=== PATIENT | male | born 1935 | race Caucasian/White ===

== ENCOUNTER → 2016-10-30 | Outpatient (CLI) | payer BC ==
[~2016-10-30] MED LIST: ASPI81TA28 PO; ATOR-24 PO; HYG/25 PO; METO25TA3 PO
[2016-10-30 12:46] LABS: HEMATOCRIT 45.7 % (42-52); MEAN CELL VOLUME 99.1 fL (80-100); MEAN CORPUSCULAR HEMOGLOBIN 31.7 pg (25-34); MEAN CORPUSCULAR HGB CONC 31.9 g/dl (32-36); PLATELET COUNT 221 K/uL (130-400); RED BLOOD COUNT 4.61 M/uL (4.7-6.1); WHITE BLOOD COUNT 6.45 K/uL (4.8-10.8)
[2016-10-30 12:57] LABS: BLOOD UREA NITROGEN 29 mg/dl (7-18); BUN/CREATININE RATIO 19.3 (10-20); CARBON DIOXIDE 32 mmol/L (21-32); CHLORIDE 104 mmol/L (98-107); GLUCOSE 98 mg/dl (70-99); PHOSPHORUS 2.6 mg/dl (2.5-4.9); POTASSIUM 3.8 mmol/L (3.5-5.1); SODIUM 141 mmol/L (136-145)
[2016-10-30 13:03] LABS: URINE APPEARANCE CLEAR (CLEAR); URINE BILIRUBIN NEG (NEG); URINE COLOR YELLOW; URINE EPITHELIAL CELL AUTO 0-5 /lpf (0-5); URINE NITRITE NEG (NEG); URINE PH 5.5 (4.5-7.5); URINE SPECIFIC GRAVITY 1.016 (1.000-1.030); UROBILINOGEN NEG (NEG)
[2016-10-30 13:06] LABS: MANUAL MICROSCOPIC REQUIRED? NO; REVIEW REQ? NO
[2016-10-30 13:16] LABS: URINE PROTIEN/CREAT RATIO 0.1 (0-0.2); URINE TOTAL PROTEIN 12.4 mg/dl (0-11.9)
[2016-10-30 13:52] LABS: CALCIUM 9.1 mg/dl (8.5-10.1)
== END | disposition home or self-care (01) ==
LOC: C.LABPVFM 08:20
PROVIDERS: ATTEND Internal Medicine Nephrology
DX: I12.9 Hypertensive chronic kidney disease with stage 1 through stage 4 chronic kidney disease, or unspecified chronic kidney disease (principal); N18.3 Chronic kidney disease, stage 3 (moderate); R60.9 Edema, unspecified; E21.3 Hyperparathyroidism, unspecified; E55.9 Vitamin D deficiency, unspecified

== ENCOUNTER → 2016-11-07 | Outpatient (CLI) | payer BC | END | disposition home or self-care (01) | LOC: C.LABPVFM 15:25 | PROVIDERS: ATTEND Nurse Practitioner Family | DX: Z01.89 Encounter for other specified special examinations (principal); L02.811 Cutaneous abscess of head [any part, except face] ==

== ENCOUNTER → 2017-04-03 | Outpatient (CLI) | payer BC ==
[2017-04-03 13:58] LABS: CHOLESTEROL/HDL RATIO 2.3
== END | disposition home or self-care (01) ==
LOC: C.LABPVFM 08:00
PROVIDERS: ATTEND Internal Medicine Cardiovascular Disease
DX: I10 Essential (primary) hypertension (principal); E78.5 Hyperlipidemia, unspecified; R60.9 Edema, unspecified; I25.10 Atherosclerotic heart disease of native coronary artery without angina pectoris

== ENCOUNTER → 2017-05-30 | Outpatient (CLI) | payer BC ==
[2017-05-30 13:09] LABS: BLOOD UREA NITROGEN 36 mg/dl (7-18); BUN/CREATININE RATIO 22.8 (10-20); CALCIUM 9.2 mg/dl (8.5-10.1); CARBON DIOXIDE 31 mmol/L (21-32); CHLORIDE 100 mmol/L (98-107); CREATININE 1.56 mg/dl (0.60-1.40); GLUCOSE 110 mg/dl (70-99); PHOSPHORUS 2.7 mg/dl (2.5-4.9); POTASSIUM 3.7 mmol/L (3.5-5.1); SODIUM 137 mmol/L (136-145)
[2017-05-30 13:10] LABS: HEMATOCRIT 44.8 % (42-52); MEAN CORPUSCULAR HEMOGLOBIN 33.7 pg (25-34); MEAN CORPUSCULAR HGB CONC 34.4 g/dl (32-36); MEAN PLATELET VOLUME 11.6 fL (7.4-10.4); PLATELET COUNT 211 K/uL (130-400); RED BLOOD COUNT 4.57 M/uL (4.7-6.1); WHITE BLOOD COUNT 6.98 K/uL (4.8-10.8)
[2017-05-30 13:13] LABS: URINE APPEARANCE CLEAR (CLEAR); URINE BILIRUBIN NEG (NEG); URINE COLOR YELLOW; URINE EPITHELIAL CELL AUTO 0-5 /lpf (0-5); URINE NITRITE NEG (NEG); UROBILINOGEN NEG (NEG)
[2017-05-30 13:26] LABS: MANUAL MICROSCOPIC REQUIRED? NO; REVIEW REQ? NO
[2017-05-30 13:46] LABS: CREATININE, URINE 39.5 mg/dl; URINE TOTAL PROTEIN < 5.0 mg/dl (0-11.9)
== END | disposition home or self-care (01) ==
LOC: C.LABPVFM 08:14
PROVIDERS: ATTEND Internal Medicine Nephrology
DX: I12.9 Hypertensive chronic kidney disease with stage 1 through stage 4 chronic kidney disease, or unspecified chronic kidney disease (principal); N18.3 Chronic kidney disease, stage 3 (moderate); R60.9 Edema, unspecified; E21.3 Hyperparathyroidism, unspecified; E55.9 Vitamin D deficiency, unspecified

== ENCOUNTER → 2017-10-22 | Outpatient (CLI) | payer BC ==
[~2017-10-22] MED LIST changes: -METO25TA3 PO; +METO25TA4 PO
[2017-10-22 12:59] LABS: HEMATOCRIT 45.6 % (42-52); HEMOGLOBIN 15.3 g/dL (14.0-18.0); MEAN CELL VOLUME 98.1 fL (80-100); MEAN CORPUSCULAR HEMOGLOBIN 32.9 pg (25-34); MEAN CORPUSCULAR HGB CONC 33.6 g/dl (32-36); PLATELET COUNT 201 K/uL (130-400); RED CELL DISTRIBUTION WIDTH CV 13.7 % (11.5-14.5); RED CELL DISTRIBUTION WIDTH SD 48.5 fL (36.4-46.3); WHITE BLOOD COUNT 5.32 K/uL (4.8-10.8)
[2017-10-22 13:49] LABS: ALBUMIN 3.8 gm/dl (3.4-5.0); ALKALINE PHOSPHATASE 125 U/L (45-117); ALT/SGPT 39 U/L (12-78); AST/SGOT 29 U/L (15-37); BLOOD UREA NITROGEN 25 mg/dl (7-18); CARBON DIOXIDE 31 mmol/L (21-32); CHOLESTEROL 121 mg/dl (0-200); CREATININE 1.56 mg/dl (0.60-1.40); GLUCOSE 109 mg/dl (70-99); LDL CHOLESTEROL CALCULATED 45 mg/dl; POTASSIUM 3.4 mmol/L (3.5-5.1); SODIUM 140 mmol/L (136-145); TOTAL PROTEIN 7.2 gm/dl (6.4-8.2)
== END | disposition home or self-care (01) ==
LOC: C.LABPVFM 07:23
PROVIDERS: ATTEND Family Medicine
DX: R42 Dizziness and giddiness (principal); I12.9 Hypertensive chronic kidney disease with stage 1 through stage 4 chronic kidney disease, or unspecified chronic kidney disease; N18.3 Chronic kidney disease, stage 3 (moderate); E21.3 Hyperparathyroidism, unspecified; E55.9 Vitamin D deficiency, unspecified

== ENCOUNTER → 2017-10-30 | Outpatient (CLI) | payer BC ==
--- NOTE | 2017-10-30 12:23 | DIAGNOSTIC IMAGING REPORT ---
CAROTID DOPPLER NECK ART HISTORY: Mental status change R42 COMPARISON: None. TECHNIQUE: Real-time, grayscale, and color Doppler sonography of the carotid arteries was performed. Imaging reviewed in the transverse and longitudinal planes. All measurements were calculated based on NASCET criteria. FINDINGS: Antegrade flow is seen in the bilateral vertebral arteries. The brachial pressures are hemodynamically similar. Moderate plaque formation bilaterally The peak systolic velocity within the right ICA is 85. The right systolic ratio is 0.8. The peak systolic velocity within the left ICA is 74. The left systolic ratio is 0.6. IMPRESSION: No hemodynamically significant stenosis seen within the carotid arteries. Moderate plaque formation bilaterally The above report was generated using voice recognition software. It may contain grammatical, syntax or spelling errors. Electronically signed by: Tito Fraga M.D. 10/30/2017 12:21 PM Dictated Date/Time: 10/30/2017 12:21 PM
== END | disposition home or self-care (01) ==
LOC: C.ULTR 11:20
PROVIDERS: ATTEND Family Medicine
DX: R42 Dizziness and giddiness (principal); I65.23 Occlusion and stenosis of bilateral carotid arteries

== ENCOUNTER 2018-12-14 23:13 | Inpatient (IN) ==
[2018-12-15 00:13] LABS: Basophils # (auto) 0.02 K/uL (0-0.2); Basophils % (auto) 0.1 %; Eosinophils # (auto) 0.04 K/uL (0-0.5); Eosinophils % (auto) 0.3 %; Hematocrit (blood only) 37.5 % (42-52); Hemoglobin 12.8 g/dL (14.0-18.0); Immature Granulocytes # (auto) 0.05 K/uL (0.00-0.02); Immature Granulocytes % (auto) 0.3 %; Lymphocytes # (auto) 0.91 K/uL (1.2-3.4); Lymphocytes % (auto) 6.2 %; Mean Corpuscular Hgb Conc 34.1 g/dL (32-36); Mean Corpuscular Volume 96.9 fL (80-100); Mean Platelet Volume 10.9 fL (7.4-10.4); Monocytes # (auto) 1.03 K/uL (0.11-0.59); Neutrophils # (auto) 12.61 K/uL (1.4-6.5); Neutrophils % (auto) 86.1 %; Platelet Count 149 K/uL (130-400); RDW Coefficient of Variation 13.6 % (11.5-14.5); RDW Standard Deviation 48.2 fL (36.4-46.3); Red Blood Count 3.87 M/uL (4.7-6.1); White Blood Count 14.66 K/uL (4.8-10.8)
[2018-12-15 00:25] LABS: Partial Thromboplastin Ratio 1.1; Prothrombin Time 10.1 Seconds (9.0-12.0)
[2018-12-15 00:30] LABS: Blood Urea Nitrogen 34 mg/dl (7-18); Calcium 8.9 mg/dl (8.5-10.1); Carbon Dioxide 29 mmol/L (21-32); Chloride 101 mmol/L (98-107); Creatinine Clr Calc Pharmacy 41.1 ml/min; Est GFR (African American) 44.8; Est GFR (Non-African American) 38.7; Glucose 99 mg/dl (70-99); Magnesium 1.9 mg/dl (1.8-2.4); Potassium 3.2 mmol/L (3.5-5.1); Sodium 137 mmol/L (136-145)
[2018-12-15 00:31] LABS: Alanine Aminotransferase 30 U/L (12-78); Albumin Level 2.8 gm/dl (3.4-5.0); Aspartate Aminotransferase 22 U/L (15-37); Bilirubin Direct 0.4 mg/dl (0-0.2)
[2018-12-15 00:38] LABS: Alkaline Phosphatase 100 U/L (45-117); Bilirubin,Total 2.5 mg/dl (0.2-1); Creatine Kinase 59 U/L (39-308); Total Protein 6.6 gm/dl (6.4-8.2); Troponin I < 0.015 ng/ml (0-0.045)
[2018-12-15] MEDS ORDERED: PIPERACILL/TAZOBAC CONSULT ACTIVE PRN ×2 (00:40→07:47)
[2018-12-15] MEDS ORDERED: VANCOMYCIN CONSULT ACTIVE PRN ×2 (00:40→07:47)
[2018-12-15] MEDS ORDERED: VANCOMYCIN HCL 2,000 MG in SODIUM CHLORIDE 0.9% 500 ML IV ONE (00:40)
[2018-12-15] MEDS ORDERED: PIPERACILLIN/TAZOBACTAM 4.5 GM/120 ML BAG IV ONE (00:40)
[2018-12-15 01:37] LABS: Appearance Urine Clear (Clear); Bacteria Urine Automated Negative (Negative); Bilirubin Urine Negative (Negative); Blood Urine 1+ (Negative); Color Urine Yellow; Glucose Urine UA Negative (Negative); Ketones Urine Trace (Negative); Leukocyte Esterase Urine Negative (Negative); Nitrite Urine Negative (Negative); Protein Urine 1+ (Negative); Specific Gravity Urine 1.018 (1.000-1.030); Urobilinogen Urine Negative (Negative)
--- NOTE | 2018-12-15 04:52 | Emergency Department Note ---
Entered by Philip Mercer acting as a scribe for Arnulfo Bhagat MD ED Provider Note Name: Jose Lopez Age:83, male Arrives Via: Walk in Informant: Patient CC: Right leg swelling HPI: The patient is an 83 year old male who presents to the emergency department with complaints of constant right leg swelling beginning this morning. The patient states that he recently drove back from [place]. He notes that he noticed some right leg swelling this morning. He reports that his leg feels like it is asleep and he states that his leg is red. He also complains of a subjective fever. He notes that he was in the emergency department in [place] last week for severe abdominal pain that has since resolved. He denies any SOB, CP, and vomiting. He reports that he has a previous history of a heart attack, DVT, and PE, and he states that he takes a baby aspirin. He notes that he was previously on Coumadin, but he reports that he is not anymore. ROS: See above HPI for pertinent positives & negatives. A total of 10 systems reviewed and were otherwise negative. Past Medical History: MO, heart disease, kidney stones, PE, DVT Past Surgical History: None Family History: No significant family history Social History: , lives with family, never smoker Home Medications: Aspirin, atorvastatin, chlorthalidone, metoprolol succinate Allergies: None Physical: Vitals: BP 190/47 H, Pulse 69, Resp 20, Temp 97.9 F, O2 Sat Exam: GENERAL: Patient is well appearing and in mild distress. EYES: No scleral icterus, unremarkable pupils. ENT: Mucous membranes moist, no nasal congestion. NECK: No masses appreciated, no meningismus, trachea is midline. RESPIRATORY: No dyspnea. Clear to auscultation and equal bilaterally. No wheeze, no rhonchi. CARDIOVASCULAR: Regular rate and rhythm. No murmurs, rubs, gallops appreciated. GASTROINTESTINAL: Abdomen soft, non-tender, no peritonitis. Bowel sounds positive. No masses appreciated. BACK: No midline tenderness, no CVA tenderness EXTREMITIES: Normal motion all extremities, no cyanosis. Diffusely swollen erythematous warm right leg with dark blistering in small areas of foot, intact pulses. NEUROLOGIC: Alert and oriented, no acute motor or sensory deficits, no focal weakness, cranial nerves grossly intact. SKIN: No rash, no jaundice, no diaphoresis. ED Course: Prior Medical Record, Triage/Nursing Notes, Medications, Allergies reviewed by Me [id number]: The patient was evaluated in room C4. A complete history and physical exam was performed. 0142: I reevaluated and updated the patient. He is feeling well. He states that as long as he is not moving his leg, he does not have any discomfort. He is agreeable to inpatient treatment. I discussed the findings and the treatment plan with the patient. He expresses agreement and understanding. I discussed the patient's case with Dr. Akhtar - ANASTACIA Guaman. The patient will be evaluated for further management and treatment. Vital Signs: reviewed and remarkable for HTN, improving during stay Labs: Reviewed and remarkable for elevated wbc/crp Interventions: Saline Lock, Zosyn 4.5gm IV, Vanco 2g IV Imaging: US VENOUS RIGHT LOWER EXTREMITY: No evidence of deep venous thrombosis. Subcutaneous edema at right popliteal fossa and calf. Prominent lymph nodes at right groin, measuring up to 3.0 x 1.3 x 0.8cm. Radiologist: Arnulfo Davis MD Consults: 0142: I reviewed the patient's case with ANASTACIA Welsh. He will evaluate the patient for further management. Blood pressure: Normal. No Referral necessary Disposition: Hospitalization Differentials: Differential: DVT, CHF, Arterial Occlusion, Infectious, Joint Effusion, Trauma, Lymphedema, Idiopathic, Trauma, amongst other pathologies entertained. Medical Decision Making: Pleasant 83 yr old male who was clearly brush at recently son's house in [place], where he notes he had multiple bug bites to legs. Erythema entire right leg with swelling. Did travel quite far in car thus US done without evidence dvt. WBC and CRP elevation though lactate OK, no fever, and vitals stable. Not septic. Cellulitis is entire leg with some blistering without evidence of compartment syndrome nor current surgical indication. Broad spect abx ordered. Patient comfortable without need for pain meds. Given extensive cellulitis clearly needs to come in for further management. Impression: Right leg cellulitis Arnulfo Bhagat MD The scribe's documentation has been prepared under my direction and personally reviewed by me in its entirety. I confirm that the note above accurately reflects all work, treatment, procedures, and medical decision making performed by me. Impression & Plan Cellulitis of leg, right Past Med/Surg History Medical History History of MO (myocardial infarction) (Resolved) Fracture, humerus (Acute) Contusion of multiple sites (Acute) Fall (Acute) Fracture, humerus (Acute) Heart disease (Chronic) Kidney stones (Resolved) Hypoxia (Acute) Pleuritic chest pain (Acute) Pulmonary embolism (Acute 02/19/14) Right knee DJD (Acute) Surgical History No significant past surgical history Social History Preferred Language: Lithuanian marital status: Feels Safe at Home: Yes Smoking Status: Never smoker Results & Data Vital Signs Vital Signs - 24 hr 12/14/18 23:17 12/15/18 01:20 12/15/18 03:23 Temperature 36.6 C Temperature Source Oral Sepsis Recent Fever Within 48 Hours No Sepsis Action Taken by Nursing No Action Required Pulse Rate 69 Pulse Rate [Right Finger] 94 H 65 Pulse Rhythm Regular Pulse Strength Normal Respiratory Rate 20 18 18 Respiratory Effort / Characteristics Non-Labored Spontaneous Non-Labored Respiratory Depth Normal Normal Respiratory Pattern Regular Blood Pressure 190/47 H Blood Pressure [Right Arm] 121/54 L 131/61 Blood Pressure Mean 94 Blood Pressure Mean [Right Arm] 76 84 Blood Pressure Position Sitting Blood Pressure Position [Right Arm] Lying Pulse Oximetry 95 96 96 Oxygen Delivery Method Room Air Room Air Room Air Home Medications Current Medication List: was personally reviewed by me Laboratory Data Attestation: I reviewed the patient's lab results. Result diagrams: 12/14/18 23:53 12/14/18 23:53 Lab Results 12/14/18 12/14/18 12/14/18 Range/Units 23:53 23:53 23:53 WBC 14.66 H (4.8-10.8) K/uL RBC 3.87 L (4.7-6.1) M/uL Hgb 12.8 L (14.0-18.0) g/dL Hct 37.5 L (42-52) % MCV 96.9 (80-100) fL MCH 33.1 (25-34) pg MCHC 34.1 (32-36) g/dL RDW Std Deviation 48.2 H (36.4-46.3) fL RDW Coeff of Anjelica 13.6 (11.5-14.5) % Plt Count 149 (130-400) K/uL MPV 10.9 H (7.4-10.4) fL Immature Gran % (Auto) 0.3 % Neut % (Auto) 86.1 % Lymph % (Auto) 6.2 % White % (Auto) 7.0 % Eos % (Auto) 0.3 % Baso % (Auto) 0.1 % Immature Gran # (Auto) 0.05 H (0.00-0.02) K/uL Neut # (Auto) 12.61 H (1.4-6.5) K/uL Lymph # (Auto) 0.91 L (1.2-3.4) K/uL White # (Auto) 1.03 H (0.11-0.59) K/uL Eos # (Auto) 0.04 (0-0.5) K/uL Baso # (Auto) 0.02 (0-0.2) K/uL PT 10.1 (9.0-12.0) Seconds INR 1.0 (0.9-1.1) APTT 31.0 (21.0-31.0) Seconds PTT Ratio 1.1 Sodium 137 (136-145) mmol/L Potassium 3.2 L (3.5-5.1) mmol/L Chloride 101 (98-107) mmol/L Carbon Dioxide 29 (21-32) mmol/L Anion Gap 7.0 (3-11) BUN 34 H (7-18) mg/dl Creatinine 1.62 H (0.6-1.4) mg/dl Est Cr Clr Drug Dosing 41.1 ml/min Est GFR ( Amer) 44.8 Est GFR (Non-Af Amer) 38.7 BUN/Creatinine Ratio 21.0 H (10-20) Glucose 99 (70-99) mg/dl Lactate (0.4-2.0) mmol/L Calcium 8.9 (8.5-10.1) mg/dl Magnesium 1.9 (1.8-2.4) mg/dl Total Bilirubin 2.5 H (0.2-1) mg/dl Direct Bilirubin 0.4 H (0-0.2) mg/dl AST 22 (15-37) U/L ALT 30 (12-78) U/L Alkaline Phosphatase 100 (45-117) U/L Total Creatine Kinase 59 (39-308) U/L Troponin I < 0.015 (0-0.045) ng/ml C-Reactive Protein 20.30 H (0-0.29) mg/dl Total Protein 6.6 (6.4-8.2) gm/dl Albumin 2.8 L (3.4-5.0) gm/dl Lipase 106 (73-393) U/L Urine Color Urine Appearance (Clear) Urine pH (4.5-7.5) Ur Specific [place] (1.000-1.030) Urine Protein (Negative) Urine Glucose (UA) (Negative) Urine Ketones (Negative) Urine Blood (Negative) Urine Nitrite (Negative) Urine Bilirubin (Negative) Urine Urobilinogen (Negative) Ur Leukocyte Esterase (Negative) Urine WBC (Auto) (0-5) /hpf Urine RBC (Auto) (0-4) /hpf U Hyaline Cast (Auto) (0-5) /lpf U Epithel Cells (Auto) (0-5) /lpf Urine Bacteria (Auto) (Negative) 12/14/18 12/15/18 Range/Units 23:53 01:16 WBC (4.8-10.8) K/uL RBC (4.7-6.1) M/uL Hgb (14.0-18.0) g/dL Hct (42-52) % MCV (80-100) fL MCH (25-34) pg MCHC (32-36) g/dL RDW Std Deviation (36.4-46.3) fL RDW Coeff of Anjelica (11.5-14.5) % Plt Count (130-400) K/uL MPV (7.4-10.4) fL Immature Gran % (Auto) % Neut % (Auto) % Lymph % (Auto) % White % (Auto) % Eos % (Auto) % Baso % (Auto) % Immature Gran # (Auto) (0.00-0.02) K/uL Neut # (Auto) (1.4-6.5) K/uL Lymph # (Auto) (1.2-3.4) K/uL White # (Auto) (0.11-0.59) K/uL Eos # (Auto) (0-0.5) K/uL Baso # (Auto) (0-0.2) K/uL PT (9.0-12.0) Seconds INR (0.9-1.1) APTT (21.0-31.0) Seconds PTT Ratio Sodium (136-145) mmol/L Potassium (3.5-5.1) mmol/L Chloride (98-107) mmol/L Carbon Dioxide (21-32) mmol/L Anion Gap (3-11) BUN (7-18) mg/dl Creatinine (0.6-1.4) mg/dl Est Cr Clr Drug Dosing ml/min Est GFR ( Amer) Est GFR (Non-Af Amer) BUN/Creatinine Ratio (10-20) Glucose (70-99) mg/dl Lactate 1.1 (0.4-2.0) mmol/L Calcium (8.5-10.1) mg/dl Magnesium (1.8-2.4) mg/dl Total Bilirubin (0.2-1) mg/dl Direct Bilirubin (0-0.2) mg/dl AST (15-37) U/L ALT (12-78) U/L Alkaline Phosphatase (45-117) U/L Total Creatine Kinase (39-308) U/L Troponin I (0-0.045) ng/ml C-Reactive Protein (0-0.29) mg/dl Total Protein (6.4-8.2) gm/dl Albumin (3.4-5.0) gm/dl Lipase (73-393) U/L Urine Color Yellow Urine Appearance Clear (Clear) Urine pH 5.0 (4.5-7.5) Ur Specific [place] 1.018 (1.000-1.030) Urine Protein 1+ H (Negative) Urine Glucose (UA) Negative (Negative) Urine Ketones Trace H (Negative) Urine Blood 1+ H (Negative) Urine Nitrite Negative (Negative) Urine Bilirubin Negative (Negative) Urine Urobilinogen Negative (Negative) Ur Leukocyte Esterase Negative (Negative) Urine WBC (Auto) 1-5 (0-5) /hpf Urine RBC (Auto) 5-10 H (0-4) /hpf U Hyaline Cast (Auto) 1-5 (0-5) /lpf U Epithel Cells (Auto) 5-10 H (0-5) /lpf Urine Bacteria (Auto) Negative (Negative) Administered Medications Discontinued Medications Piperacillin Sod/Tazobactam Sod (Zosyn) 4.5 gm in 120 mls @ 240 mls/hr IV NOW ONE Stop: 12/15/18 01:09 Last Infusion: 12/15/18 01:16 Dose: 0 mls/hr Documented by: [id number] Admin: 12/15/18 00:45 Dose: 240 mls/hr Documented by: [id number] Vancomycin HCl 2,000 mg/ (Sodium Chloride) 540 mls @ 200 mls/hr IV NOW ONE; Protocol Stop: 12/15/18 03:21 Last Infusion: 12/15/18 04:10 Dose: 0 mls/hr Documented by: [id number] Admin: 12/15/18 01:25 Dose: 200 mls/hr Documented by: [id number] Discharge Plan Visit Data Chief Complaint: Swelling/Edema to Extremity Stated Complaint: R FOOT/LEG SWOLLEN AND DISCOLORED ED Provider: Arnulfo Bhagat Discharge Problem: Cellulitis of leg, right Patient Disposition: Being Evaluated by Hospitalist Forms Stand Alone Forms: My [facility] Prescriptions Prescriptions: No Action atorvastatin 80 mg tablet 40 mg PO QAM Qty: 90 RF: 0 chlorthalidone 25 mg tablet 25 mg PO QAM Qty: 90 RF: 0 metoprolol succinate 25 mg tablet extended release 24 hr 25 mg PO QAM Qty: 90 RF: 0 aspirin [Aspirin Low Dose] 81 mg Tablet,Delayed Release (Dr/Ec) 81 mg PO DAILY RF: 0 Referrals Referrals: Saadia Curtis MD [Primary Care Provider] - The scribe's documentation has been prepared under my direction and personally reviewed by me in its entirety. I confirm that the note above accurately reflects all work, treatment, procedures, and medical decision making performed by me.
--- NOTE | 2018-12-15 05:07 | History & Physical Report ---
Date of Service December 15, 2018 Assessment & Plan (1) Cellulitis of leg, right: 83 y/o M Hx CAD/MA, HTN, HLD, history of PE. The pt presents with inflammation of his RLE. He denies excessive pain, fevers or rigors. He has just returned from [place] where he states that he suffered multiple insect bites on his lower extremities. 1) Cellulitis - Vanc, Zosyn provided due to extent and location. Surgery consult requested. 2) CAD - no evidence of ACS - cont ASA, statin, Metoprolol 3) History of PE - placed on heparin prophylaxis 4) HTN, HLD - Metoprolol, Atorvastatin Full code - Heparin prophylaxis Total time for this admit including review of labs, meds, imaging, records - discussion with pt and ER attending - 41 min Present on Admission?: Yes History of Present Illness Primary Care Provider: Saadia Curtis MD 83 y/o M Hx CAD/MA, HTN, HLD, history of PE. The pt presents with inflammation of his RLE. He denies excessive pain, fevers or rigors. He has just returned from [place] where he states that he suffered multiple insect bites on his lower extremities. PMH: 1) History of PE 2) HTN 4) HLD 5) CAD - MA and 2 stents 2011. 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 Surgical: R TKR Social: Oldest son recently Family: Father following a CVA in his 60s Allergies Allergy/AdvReac Type Severity Reaction Status Date / Time No Known Allergies Allergy Verified 12/14/18 17:37 Home Medications Home Medications Medication Instructions Recorded Confirmed Type aspirin [Aspirin Low Dose] 81 mg PO DAILY 10/30/18 12/15/18 History atorvastatin 80 mg tablet 40 mg PO QAM #90 tab 12/14/18 12/15/18 Rx chlorthalidone 25 mg tablet 25 mg PO QAM #90 tab 12/14/18 12/15/18 Rx metoprolol succinate ER 25 mg 25 mg PO QAM #90 tab 12/14/18 12/15/18 Rx tablet,extended release 24 hr Past Med/Surg History Medical History History of MA (myocardial infarction) (Resolved) Fracture, humerus (Acute) Contusion of multiple sites (Acute) Fall (Acute) Fracture, humerus (Acute) Heart disease (Chronic) Kidney stones (Resolved) Hypoxia (Acute) Pleuritic chest pain (Acute) Pulmonary embolism (Acute 02/19/14) Right knee DJD (Acute) Surgical History No significant past surgical history Social History Preferred Language: Armenian marital status: Feels Safe at Home: Yes Smoking Status: Never smoker Review of Systems Review of Systems: Gen: Denies fevers, night sweats, rigors, fatigue, malaise, weight loss/gain ENT: Denies congestion, throat pain, hearing loss Eyes: Denies acute visual changes CV: Denies CP, palpitations Pulmonary: Denies SOB, cough, wheezing GI: Denies N/V, diarrhea, constipation Neuro: Denies acute or unilateral weakness, acute gait impairment, headache or acute visual changes Musculoskeletal: Denies joint pain, inflammation Endocrine: Denies polydipsia, polyuria Skin: Acute erythematous rash over the RLE Physical Exam Physical Exam: General: AAO x 3, no distress ENT: No erythema or exudates, no thrush Eyes: TANA, EOMI Head and neck: Normocephalic, atraumatic, No JVD, neck is supple. Chest/heart: Nontender, S1,2, RRR, no murmurs, no gallops Lungs: CTAB, no wheezing or crackles Abdomen: Nontender, nondistended, BS+ Neuro: AAO x 3, speech is clear, no unilateral weakness or loss of sensation, coordination intact Musculoskeletal: No joint inflammation, muscle tenderness, FROM - no tenderness to palpation of the R knee Skin: Cellulitis extends from the toes to the mid thigh and may be developing on the groin - there are a few necrotic areas of the R Results & Data Vital Signs (Past 12 Hours) Vital Signs Temp Pulse Pulse Resp BP BP Pulse Ox 12/15/18 03:23 65 18 131/61 96 12/15/18 01:20 94 H 18 121/54 L 96 12/14/18 23:17 97.9 F 69 20 190/47 H 95 PG Care Time/CCT Total # of Minutes Spent Total Time Spent with Patient: Total time spent is greater than 50% in coordination of care (as documented) at patient's floor/unit and/or counseling patient:
--- NOTE | 2018-12-15 06:55 | Ultrasound Report ---
US venous doppler LE RT CLINICAL HISTORY: 83 years-old Male presenting with right leg swelling. TECHNIQUE: Real-time grayscale and color and spectral Doppler ultrasound imaging of the veins of the right lower extremity was performed. Compression and augmentation were also utilized. COMPARISON: None. FINDINGS: RIGHT: Common femoral vein: Patent. Greater saphenous vein (superficial): Patent. Deep femoral vein: Patent. Femoral vein: Patent. Popliteal vein: Patent. Calf veins: Patent. Other: In the right inguinal region, prominent lymph nodes are noted, the largest measuring 3.0 x 0.8 x 1.3 cm. These maintain a normal reniform architecture and normal fatty hilum. No asymmetric cortic al thickening. Subcutaneous edema noted in the popliteal fossa and to a lesser extent in the lower le g. IMPRESSION: 1. No evidence of deep venous thrombosis. 2. Popliteal fossa subcutaneous edema. 3. Enlarged though benign-appearing lymph nodes in the right inguinal region may be reactive. Electronically signed by: Phan Mcginnis M.D. 12/15/2018 6:54 AM
[2018-12-15] MEDS ORDERED: ONDANSETRON INJ 2 MG/ML 2 ML VIAL IV PRN (07:47)
[2018-12-15] MEDS ORDERED: MAGNESIUM HYDROXIDE SUSP 30 ML UDC PO PRN (07:47)
[2018-12-15] MEDS ORDERED: ALUMINUM/MAGNESIUM SUSP 30 ML UDC PO PRN (07:47)
[2018-12-15] MEDS ORDERED: ACETAMINOPHEN 325 MG TAB PO PRN (07:47)
[2018-12-15] MEDS ORDERED: POLYETHYLENE (MIRALAX) 17 GM PACK PO PRN (07:47)
[2018-12-15] MEDS ORDERED: PIPERACILLIN/TAZOBACTAM 3.375 GM in DEXTROSE 5% 100 ML IV ONE (08:00)
[2018-12-15 08:28] LABS: Basophils # (auto) 0.02 K/uL (0-0.2); Basophils % (auto) 0.2 %; Eosinophils # (auto) 0.07 K/uL (0-0.5); Eosinophils % (auto) 0.5 %; Hemoglobin 12.6 g/dL (14.0-18.0); Immature Granulocytes # (auto) 0.03 K/uL (0.00-0.02); Immature Granulocytes % (auto) 0.2 %; Lymphocytes # (auto) 0.91 K/uL (1.2-3.4); Mean Corpuscular Hgb Conc 34.1 g/dL (32-36); Mean Corpuscular Volume 97.1 fL (80-100); Mean Platelet Volume 10.7 fL (7.4-10.4); Monocytes # (auto) 1.03 K/uL (0.11-0.59); Monocytes % (auto) 7.9 %; Neutrophils # (auto) 10.97 K/uL (1.4-6.5); Neutrophils % (auto) 84.2 %; Platelet Count 139 K/uL (130-400); RDW Coefficient of Variation 13.6 % (11.5-14.5); RDW Standard Deviation 47.7 fL (36.4-46.3); Red Blood Count 3.81 M/uL (4.7-6.1); White Blood Count 13.03 K/uL (4.8-10.8)
[2018-12-15 08:57] LABS: BUN Creatinine Ratio 18.2 (10-20); Calcium 8.8 mg/dl (8.5-10.1); Creatinine Clr Calc Pharmacy 44.9 ml/min; Est GFR (Non-African American) 43.1; Magnesium 2.1 mg/dl (1.8-2.4); Potassium 3.1 mmol/L (3.5-5.1)
--- NOTE | 2018-12-15 09:30 | Pharmacy Report ---
Pharmacy Abx Initial Consult - Date of Service December 15, 2018 - Pharmacy Dosing Scope Date of Consult: 12-15 Consultation requested by: Dr. Akhtar Pharmacy is consulted to initiate vancomycin and zosyn dosing therapy, order appropriate labs and adjust drug dose/frequency. - Subjective The patient is a 83 year old M admitted on 12/15/18 05:18. - Objective Height: 5 ft 9 in Weight: 104 kg Lab Results (24hrs): Laboratory Tests (24 Hours) 12/15/18 12/15/18 12/14/18 08:13 08:13 23:53 WBC 13.03 H Neut # (Auto) 10.97 H Creatinine 1.48 H 1.62 H Est Cr Clr Drug Dosing 44.9 41.1 Total Creatine Kinase 59 C-Reactive Protein 20.30 H Micro Results: 12/14/18 23:53 Aerobic Blood Culture - Pending Blood Anaerobic Blood Culture - Pending 12/14/18 23:53 Aerobic Blood Culture - Pending Blood Anaerobic Blood Culture - Pending - Assessment & Plan Assessment 83 year old M admitted with extensive cellulitis on leg. Blood cultures x 2 are pending. Ortho/surgery consulted to follow patient. Patient afebrile, leukocytosis improving. Plan Vancomycin IV * Received loading dose of vancomycin 2000 mg x 1 in the ED this morning * Will dose maintenance dose of vancomycin 1250 mg (~12 mg/kg) iv q 20 hrs to achieve estimated trough ~15 mcg/ml (goal for cellulitis) * Estimated kinetics: t1/2~17 hrs, ke~0.04 hr-1, crcl~44 ml/min * Will plan to obtain a trough prior to the 1400 dose on 12/17 to ensure therapeutic Zosyn * 3.375 gm iv q 8 hrs - appropriate for renal function >20 ml/min / no change Pharmacy will continue to follow and will adjust dose/frequency as necessary. Thank you.
[2018-12-15] MEDS: D5W AND LACTATED RINGERS 1,000 ML IV SCH ×2 (09:35→21:07)
[2018-12-15] MEDS: ASPIRIN 81 MG ECTAB PO SCH (09:35)
[2018-12-15] MEDS: ATORVASTATIN 40 MG TAB PO SCH (09:35)
[2018-12-15] MEDS: METOPROLOL SUCC 25MG EXT REL TAB PO SCH (09:35)
[2018-12-15] MEDS: CHLORTHALIDONE 25 MG TAB PO SCH (09:35)
--- NOTE | 2018-12-15 13:29 | Consultation Report ---
DATE OF CONSULTATION: 12/15/2018 HISTORY: The patient presents as an 83-year-old white male who was recently just returned from [place] who while in [place] had multiple insect bites, he relates them being triggers in his anterior left leg and developed cellulitis 2 days prior and then into his foot. Yesterday, he was admitted to the hospital for intravenous antibiotics. He relates his foot is already dramatically much better on antibiotics. He is currently on vancomycin and piperacillin. His x-rays are otherwise unremarkable. He has had a right total knee replacement done by Dr. Zavala in approximately 2012. His knee has no evidence of effusion or infection at this point. He has no knee pain. At this point, this appears to be isolated cellulitis into his lower leg and foot. No area of fluctuance or anything that needs drained. We will continue to follow with you and continue with IV antibiotics and follow up on an as-needed basis.
[2018-12-15] MEDS: HEPARIN SOD 5,000 UNIT/0.5 ML VIAL SQ SCH ×2 (14:06→21:06)
[2018-12-15] MEDS: PIPERACILLIN/TAZOBACTAM 3.375 GM in DEXTROSE 5% 100 ML IV SCH (18:01)
[2018-12-15] MEDS: VANCOMYCIN HCL 1,250 MG in SODIUM CHLORIDE 0.9% 250 ML IV SCH (21:07)
[2018-12-16] MEDS: PIPERACILLIN/TAZOBACTAM 3.375 GM in DEXTROSE 5% 100 ML IV SCH ×3 (02:28→17:59)
[2018-12-16] MEDS: HEPARIN SOD 5,000 UNIT/0.5 ML VIAL SQ SCH ×3 (06:10→21:18)
[2018-12-16 07:16] LABS: Creatinine Clr Calc Pharmacy 47.5 ml/min; Est GFR (African American) 53.5; Est GFR (Non-African American) 46.1
[2018-12-16] MEDS: CHLORTHALIDONE 25 MG TAB PO SCH (07:33)
[2018-12-16] MEDS: METOPROLOL SUCC 25MG EXT REL TAB PO SCH (07:33)
[2018-12-16] MEDS: ATORVASTATIN 40 MG TAB PO SCH (07:33)
[2018-12-16] MEDS: ASPIRIN 81 MG ECTAB PO SCH (07:34)
[2018-12-16] MEDS: D5W AND LACTATED RINGERS 1,000 ML IV SCH ×2 (07:37→21:17)
--- NOTE | 2018-12-16 13:38 | Orthopedic Progress Note ---
Date of Service December 16, 2018 Assessment & Plan (1) Cellulitis of leg, right: cont to elevate lower leg, cont IV Abx, He is currently on vancomycin and piperacillin. do not see any surgical indications at this time, no fluid collections or fluctuant areas. cont to observe. Subjective pain is tolerable in his lower leg, he feels the redness is improved. denies fever/chills, denies CP/SOB Physical Exam Physical Exam: Vital Signs Temp 36.5 C 12/16/18 07:36 Pulse 53 L 12/16/18 07:36 Resp 18 12/16/18 07:36 BP 155/75 H 12/16/18 07:36 Pulse Ox 94 12/16/18 07:36 Intake & Output 12/15/18 12/16/18 12/16/18 18:59 06:59 18:59 Intake Total 556.334 / 0048.179 5153.000 / 1669.33 4 745.333 / 745.333 Output Total 651 / 1451 800 / 1451 Balance -94.666 / 218.334 313.000 / 218.334 745.333 / 745.333 Weight 104 kg Intake: IV 556.334 / 1549.334 993.000 / 1549.334 745.333 / 745.333 D5w and Lactat ed Ringers 1,000 441.334 / 929.334 488.000 / 929.334 745.333 / 745.333 ml @ 80 mls/hr IV .[id number] BARB Rx#:[id number] Zosyn 3.375 gm In D5 100 ml @ 115 / 345 230 / 345 28.75 mls/hr I V Q8H BARB Rx#: [id number] Vancomycin HCl 1,250 mg In Nss 275 / 275 250 ml @ 125 m ls/hr IV Q20H BARB Rx#:[id number] Oral 120 / 120 Output: Urine 650 / 1450 800 / 1450 # Bowel Movement s Other: # Unmeasured Voi ds 1 Musculoskeletal: right lower extremity: well healed surgical incision to his left knee, no knee effusion, no pain with PROM/AROM to the right knee. the erythema does extend from this dorsum of his foot/toes to mid thigh but does appear lesser today than previously. calf SNT. swelling present calf, foot and toes. Results & Data Vital Signs (Past 12 Hours) Vital Signs Temp Pulse Resp BP Pulse Ox 12/16/18 07:36 36.5 C 53 L 18 155/75 H 94
[2018-12-16] MEDS: VANCOMYCIN HCL 1,250 MG in SODIUM CHLORIDE 0.9% 250 ML IV SCH (17:59)
--- NOTE | 2018-12-16 21:40 | Hospitalist Progress Note ---
Date of Service December 16, 2018 Assessment & Plan (1) Cellulitis of leg, right: clinically improving no evidence of complicating bacteremia, nec fascitis, or right knee joint involvement appreciate ortho consult cont current IV abx serial exams other medical issues stable Subjective pt and both agree RLE redness is improved appetite ok previous right knee pain (had such a few days ago) -- resolved ambulating and weight bearing on right leg w/o difficulty Physical Exam Constitutional: well developed and well nourished; no acute distress ENMT: external ear and nose normal, oropharynx normal Respiratory: normal respiratory effort, lungs clear to auscultation Cardiovascular: Rate/Rhythm: regular rate and regular rhythm Heart Sounds: normal S1 and normal S2; no murmur Vessels: posterior tibial pulses present and dorsalis pedis pulses present; no JVD Extremities: + edema (right foot/ankle - 1-2+) Gastrointestinal (Abdomen): normal bowel sounds, soft, nontender, no hepatosplenomegaly Musculoskeletal: right knee - passive and active flexion/extension YIELDS NO PAIN; TKR scar present; no effusion Skin: mild erythema extending from just below inguinal crease/anterior thigh down all the way to the foot; anterior leg worse than posterior leg; there is ecchymoses between the first/2nd toes and ecchymoses encircling the bottom of the right foot Results & Data Vital Signs (Past 12 Hours) Vital Signs Temp Pulse Resp BP Pulse Ox 12/16/18 15:02 36.6 C 55 L 18 148/74 H 95 Laboratory Results Laboratory Results - last 24 hr 12/16/18 06:24 Creatinine 1.40 Est Cr Clr Drug Dosing 47.5 Est GFR ( Amer) 53.5 Est GFR (Non-Af Amer) 46.1 PG Care Time/CCT Total # of Minutes Spent Total Time Spent with Patient: Total time spent is greater than 50% in coordination of care (as documented) at patient's floor/unit and/or counseling patient:
[2018-12-17] MEDS: PIPERACILLIN/TAZOBACTAM 3.375 GM in DEXTROSE 5% 100 ML IV SCH ×3 (02:18→18:01)
[2018-12-17] MEDS: HEPARIN SOD 5,000 UNIT/0.5 ML VIAL SQ SCH ×3 (05:35→21:05)
[2018-12-17 07:04] LABS: Hemoglobin 14.2 g/dL (14.0-18.0); Mean Corpuscular Hgb Conc 34.6 g/dL (32-36); Mean Corpuscular Volume 95.8 fL (80-100); Mean Platelet Volume 11.1 fL (7.4-10.4); Platelet Count 200 K/uL (130-400); RDW Coefficient of Variation 13.5 % (11.5-14.5); RDW Standard Deviation 47.4 fL (36.4-46.3); Red Blood Count 4.28 M/uL (4.7-6.1); White Blood Count 8.65 K/uL (4.8-10.8)
[2018-12-17 07:35] LABS: BUN Creatinine Ratio 13.2 (10-20); Calcium 8.9 mg/dl (8.5-10.1); Creatinine Clr Calc Pharmacy 43.2 ml/min; Est GFR (African American) 47.6; Est GFR (Non-African American) 41.1; Potassium 3.1 mmol/L (3.5-5.1)
[2018-12-17] MEDS: METOPROLOL SUCC 25MG EXT REL TAB PO SCH (08:10)
[2018-12-17] MEDS: CHLORTHALIDONE 25 MG TAB PO SCH (08:10)
[2018-12-17] MEDS: ATORVASTATIN 40 MG TAB PO SCH (08:10)
[2018-12-17] MEDS: ASPIRIN 81 MG ECTAB PO SCH (08:10)
[2018-12-17] MEDS: POTASSIUM CHLORIDE 20 MEQ TABCR PO SCH ×2 (10:26→21:04)
[2018-12-17] MEDS: VANCOMYCIN HCL 1,250 MG in SODIUM CHLORIDE 0.9% 250 ML IV SCH (13:24)
[2018-12-17] MEDS ORDERED: VANCOMYCIN TROUGH ONE (13:30)
--- NOTE | 2018-12-17 14:22 | Pharmacy Report ---
Pharmacy Abx Dose Short Note - Date of Service December 17, 2018 - Assessment & Plan Assessment 83 year old M receiving zosyn/vancomycin for treatment of cellulitis Day # 4 of antimicrobial therapy. Patient improving/possible de-escalation? Plan Vancomycin * Trough level of 9.2 mcg/mL is subtherapeutic * Change dose to 1250 mg q14H * Goal trough level ~15 mcg/mL * Trough ordered for 12/19 @ 0530 Pharmacy will continue to follow and will adjust dose/frequency as necessary. Thank you.
--- NOTE | 2018-12-17 15:55 | Orthopedic Progress Note ---
Date of Service December 17, 2018 Assessment & Plan (1) Cellulitis of leg, right: cont to elevate lower leg, cont IV Abx, He is currently on vancomycin and piperacillin. No surgical indication at this time. Patient's symptoms continue to improve on IV antibiotics. He knee exam is benign, improving erythema to right leg. At this time orthopedics will sign off. If you have any questions or concerns, or any worsening symptoms please contact us. Subjective Patient seen resting in bed comfortably. States erythema is improving. Swelling is improving. Denies pain. No fever/chills. No other complaints. Review of Systems Review of Systems: All systems reviewed & are unremarkable except as noted in HPI & below Physical Exam Physical Exam: Right leg: Well-healed incision to the right knee. Improving erythema to the right lower leg. No pain with active or passive range of motion of the knee. Results & Data Vital Signs (Past 12 Hours) Vital Signs Temp Pulse Resp BP Pulse Ox 12/17/18 15:49 36.6 C 58 L 18 151/73 H 95 12/17/18 07:35 36.6 C 51 L 16 137/69 95
--- NOTE | 2018-12-17 20:02 | Hospitalist Progress Note ---
Date of Service December 17, 2018 Assessment & Plan (1) Cellulitis of leg, right: CLINICALLY IMPROVED. Cont current abx of zosyn/vanco. This was a severe infection covering most of the RLE. NO clinical evidence of complicating abscess, necrotizing process, or joint involvement of knee/etc. Blood cx's negative. Cont current care plan. Add lactinex. Clinically has good arterial circulation on exam. Appreciate orthopedic consultation. Present on Admission?: Yes (2) History of AR (myocardial infarction): noted. cont BB, asa, statin. no ischemic symptoms at this time. (3) Pulmonary embolism: noted history of (4) DVT prophylaxis: heparin 5000 TID improving nicely updated Subjective pt's RLE is less red, less swollen, and has minimal pain his pain is mainly when he gets up and initially puts pressure on right foot pain resolves after 1-2 steps NO KNEE PAIN no fevers/chills eating 100% of meals at bedside Review of Systems Constitutional: no fever, no chills, no fatigue and no anorexia Respiratory: no cough and no dyspnea Cardiovascular: no chest pain Gastrointestinal: + diarrhea/loose stools (modestly loose, but not liquid); no abdominal pain Physical Exam Constitutional: well developed and well nourished; no acute distress ENMT: external ear and nose normal, oropharynx normal Respiratory: normal respiratory effort, lungs clear to auscultation Cardiovascular: Rate/Rhythm: regular rate and regular rhythm Heart Sounds: normal S1 and normal S2; no murmur Vessels: posterior tibial pulses present and dorsalis pedis pulses present; no JVD Gastrointestinal (Abdomen): normal bowel sounds, soft, nontender, no hepatosplenomegaly Musculoskeletal: left arm with IV infiltrate over distal arm and antecubital region; no signs of necrosis or other complication Skin: erythema less intensely red today; erythema is receding from the demarkation line on proximal anterior thigh; more dark erythema on bottom of foot on right; ecchymoses in between right first/2nd toes unchanged; NO CREPITUS TO PALPATION OVER ANY AREA OF THE RLE OR THE FOOT; NO TENDERNESS TO PALPATION OVER ANY AREA OF THE LEG. LESS SWELLING TODAY IN GENERAL ESPECIALLY THE FOOT/ANKLE. Psychiatric: A+Ox3, euthymic affect Results & Data Vital Signs (Past 12 Hours) Vital Signs Temp Pulse Resp BP Pulse Ox 12/17/18 15:49 36.6 C 58 L 18 151/73 H 95 PG Care Time/CCT Total # of Minutes Spent Total Time Spent with Patient: Total time spent is greater than 50% in coordination of care (as documented) at patient's floor/unit and/or counseling patient: (1) Pulmonary embolism Pulmonary embolism type: unspecified Chronicity: unspecified Acute cor pulmonale presence: without acute cor pulmonale Qualified Code(s): I26.99 - Other pulmonary embolism without acute cor pulmonale
[2018-12-18] MEDS: PIPERACILLIN/TAZOBACTAM 3.375 GM in DEXTROSE 5% 100 ML IV SCH ×3 (02:24→18:15)
[2018-12-18] MEDS: VANCOMYCIN HCL 1,250 MG in SODIUM CHLORIDE 0.9% 250 ML IV SCH ×2 (02:41→16:06)
[2018-12-18] MEDS: HEPARIN SOD 5,000 UNIT/0.5 ML VIAL SQ SCH ×3 (06:19→21:42)
[2018-12-18 06:22] LABS: Hematocrit (blood only) 37.9 % (42-52); Hemoglobin 12.7 g/dL (14.0-18.0); Mean Corpuscular Hgb Conc 33.5 g/dL (32-36); Mean Corpuscular Volume 96.4 fL (80-100); Mean Platelet Volume 10.5 fL (7.4-10.4); Platelet Count 199 K/uL (130-400); RDW Coefficient of Variation 13.3 % (11.5-14.5); Red Blood Count 3.93 M/uL (4.7-6.1); White Blood Count 8.93 K/uL (4.8-10.8)
[2018-12-18 07:07] LABS: BUN Creatinine Ratio 13.8 (10-20); Calcium 8.6 mg/dl (8.5-10.1); Creatinine Clr Calc Pharmacy 46.8 ml/min; Est GFR (African American) 52.6; Est GFR (Non-African American) 45.4; Potassium 3.9 mmol/L (3.5-5.1)
[2018-12-18] MEDS: ATORVASTATIN 40 MG TAB PO SCH (08:13)
[2018-12-18] MEDS: CHLORTHALIDONE 25 MG TAB PO SCH (08:13)
[2018-12-18] MEDS: ASPIRIN 81 MG ECTAB PO SCH (08:13)
[2018-12-18] MEDS: POTASSIUM CHLORIDE 20 MEQ TABCR PO SCH ×2 (08:13→20:18)
[2018-12-18] MEDS: METOPROLOL SUCC 25MG EXT REL TAB PO SCH (08:14)
[2018-12-18] MEDS: LACTOBACILLUS ACIDOPHILUS (FLORANEX) TAB PO SCH ×2 (12:00→18:14)
--- NOTE | 2018-12-18 15:46 | Infectious Disease Consult ---
Date of Consultation December 18, 2018 Assessment & Plan (1) Cellulitis of leg, right: Cellulitis of the right lower extremity and foot, clinically responding to IV antibiotics. Given rapidity of onset, suspect this is streptococcal. We will continue present therapy for another 24 hours or so, then if continues to improve would consider transition to oral antibiotics with combination of Bactrim and Augmentin. Will follow. History of Present Illness Reason for Consultation: Right lower extremity cellulitis Attending Physician: Umesh Callejas History of Present Illness 83-year-old female with history of coronary artery disease, mild chronic leg swelling, who was well until 5 days ago when he began to note fatigue, chills, and abdominal pain, saw the emergency room physician in [place], CT scan was obtained which was negative, and patient was discharged. He then developed rapid onset of erythema and swelling starting in his right foot extending progressing to his right thigh. He was admitted to the hospital and has been treated with combination of vancomycin and Zosyn with significant improvement. He has remained afebrile. Blood cultures are negative. Ultrasound shows no evidence of DVT. Pain in the right leg currently 1-2 out of 10 in intensity. Allergies Allergy/AdvReac Type Severity Reaction Status Date / Time No Known Allergies Allergy Verified 12/14/18 17:37 Home Medications Home Medications Medication Instructions Recorded Confirmed Type aspirin [Aspirin Low Dose] 81 mg PO DAILY 10/30/18 12/15/18 History atorvastatin 80 mg tablet 40 mg PO QAM #90 tab 12/14/18 12/15/18 Rx chlorthalidone 25 mg tablet 25 mg PO QAM #90 tab 12/14/18 12/15/18 Rx metoprolol succinate ER 25 mg 25 mg PO QAM #90 tab 12/14/18 12/15/18 Rx tablet,extended release 24 hr Patient History Medical History History of PA (myocardial infarction) (Resolved) Fracture, humerus (Acute) Contusion of multiple sites (Acute) Fall (Acute) Fracture, humerus (Acute) Heart disease (Chronic) Kidney stones (Resolved) Hypoxia (Acute) Pleuritic chest pain (Acute) Pulmonary embolism (Acute 02/19/14) Right knee DJD (Acute) Surgical History No significant past surgical history Family History Other No pertinent family history Social History Preferred Language: Hebrew Communication Ability: Effective Equipment Specialist Required: No Beliefs That Will Affect Care: None marital status: Current Living Situation: Spouse Other Information That Helps Us Care for You: No Feels Safe at Home: Yes Safety Concerns: Feels Safe At This Time Smoking Status: Former smoker Tobacco Type: cigarettes Do You Dip or Chew Tobacco: No Smoking End Date: 1974 Second Hand Exposure: No Tobacco Cessation Education Requested by Patient: No Hx Alcohol Use: No Hx Substance Use: No Review of Systems Review of Systems: All systems reviewed & are unremarkable except as noted in HPI & below Physical Exam Constitutional: WD/WN, vitals as above comfortable; no acute distress Eyes: PERRL, conjunctivae normal, anicteric sclerae ENMT: external ear and nose normal, oropharynx normal Neck: trachea midline, no thyromegaly neck nontender Respiratory: normal respiratory effort, lungs clear to auscultation normal percussion; does not use accessory muscles Cardiovascular: Rate/Rhythm: regular rate and regular rhythm Heart Sounds: normal S1 and normal S2; no gallop, no murmur and no cardiac rub Vessels: normal peripheral pulses; no JVD Gastrointestinal (Abdomen): normal bowel sounds, soft, nontender, no hepatosplenomegaly Musculoskeletal: no cyanosis or clubbing, extremities motor strength 5/5 Spine: thoracic spine normal to inspection and lumbar spine normal to inspection; no cervical spinal tenderness Skin: normal turgor and + lesion; no rashes Right lower extremity cellulitis from thigh to foot, receding from marked lines. Neurologic: patellar DTR's 2+ bilat, sensation intact no focal motor deficits Psychiatric: A+Ox3, euthymic affect Orientation: cooperative Lymphatic: no cervical or axillary lymphadenopathy no inguinal lymphadenopathy Results & Data Vital Signs (Past 12 Hours) Vital Signs Temp Pulse Resp BP Pulse Ox 12/18/18 07:20 36.5 C 60 18 145/71 H 93 Laboratory Results Short CBC 12/18/18 Range/Units 06:05 WBC 8.93 (4.8-10.8) K/uL Hgb 12.7 L (14.0-18.0) g/dL Hct 37.9 L (42-52) % Plt Count 199 (130-400) K/uL BMP 12/18/18 06:05 Sodium 143 Potassium 3.9 D Chloride 108 H Carbon Dioxide 29 BUN 20 H Creatinine 1.42 H Glucose 98 Calcium 8.6 Diagnostic Findings Microbiology 12/14/18 23:53 Blood Anaerobic Blood Culture - Preliminary No growth in Anaerobic bottle after 48 hours. 12/14/18 23:53 Blood Aerobic Blood Culture - Preliminary No growth in Aerobic bottle after 48 hours. 12/14/18 23:53 Blood Anaerobic Blood Culture - Preliminary No growth in Anaerobic bottle after 48 hours. US venous doppler LE RT CLINICAL HISTORY: 83 years-old Male presenting with right leg swelling. TECHNIQUE: Real-time grayscale and color and spectral Doppler ultrasound imaging of the veins of the right lower extremity was performed. Compression and augmentation were also utilized. COMPARISON: None. FINDINGS: RIGHT: Common femoral vein: Patent. Greater saphenous vein (superficial): Patent. Deep femoral vein: Patent. Femoral vein: Patent. Popliteal vein: Patent. Calf veins: Patent. Other: In the right inguinal region, prominent lymph nodes are noted, the largest measuring 3.0 x 0.8 x 1.3 cm. These maintain a normal reniform architecture and normal fatty hilum. No asymmetric cortical thickening. Subcutaneous edema noted in the popliteal fossa and to a lesser extent in the lower leg. IMPRESSION: 1. No evidence of deep venous thrombosis. 2. Popliteal fossa subcutaneous edema. 3. Enlarged though benign-appearing lymph nodes in the right inguinal region may be reactive. Electronically signed by: Phan Mcginnis M.D. 12/15/2018 6:54 AM
--- NOTE | 2018-12-18 16:23 | CT Scan Report ---
CT tib/fib RT wo con CT DOSE: CLINICAL HISTORY: cellulitis, eval for deeper infection TECHNIQUE: Unenhanced images were obtained in the transverse plane. Vaginal and coronal reformatted i mages were acquired. A dose lowering technique was utilized adhering to the principles of ALARA. 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 There are moderately extensive vascular calcifications present. There is diffuse cutaneous and subcutaneous edema, consistent with the clinical history of cellulitis . There are no fluid collections suspicious for abscess given the limitations of a noncontrast study. No intramuscular masses are visualized on this noncontrast examination. No bony destructive changes are visualized. IMPRESSION: 1. Diffuse edema consistent with the clinical history of cellulitis 2. No evidence of osteomyelitis 3. No evidence of deep soft tissue abscess given the limitations of a noncontrast study 4. Atherosclerotic disease Electronically signed by: Esdras Campa M.D. 12/18/2018 4:22 PM
--- NOTE | 2018-12-18 16:31 | CT Scan Report ---
CT foot RT wo con CT DOSE: 338.86 mGy.cm CLINICAL HISTORY: Cellulitis, soft tissue swelling. Evaluate for deep infection. TECHNIQUE: The patient was scanned in a noncontrast fashion. Helical images were acquired through the foot. Sagittal coronal and axial reformatted images were acquired. A dose lowering technique was ut ilized adhering to the principles of ALARA. COMPARISON STUDY: None. FINDINGS: There are vascular calcifications indicative of underlying atherosclerotic disease. There i s cutaneous and subcutaneous edema, consistent with the clinical history of a cellulitis. There are no fluid collections to indicate a deep soft tissue abscess, given the limitations of a non contrast study. There is no air within the soft tissues. No bony destructive changes are visualized. There are mild degenerative changes present, most pronounced within the first metatarsal phalangeal j oint. There is calcaneal spurring. IMPRESSION: 1. Diffuse cutaneous and subcutaneous edema, consistent with the clinical history of cellulitis 2. Atherosclerotic disease 3. No CT evidence of osteomyelitis 4. No CT evidence of deep soft tissue abscess Electronically signed by: Esdras Campa M.D. 12/18/2018 4:30 PM
--- NOTE | 2018-12-18 19:17 | Hospitalist Progress Note ---
Date of Service December 18, 2018 Assessment & Plan (1) Cellulitis of leg, right: Continues to improve albeit slowly. I have reassured the patient and his that given the extent of the cellulitis I would anticipate slow daily improvement. This was a severe case of cellulitis involving nearly the entire RLE. It has indeed improved with IV zosyn/vanco over the last 3-4 days. This was a severe infection covering most of the RLE. NO clinical evidence of complicating abscess, necrotizing process, or joint involvement of knee/etc. Blood cx's negative. I imaged the right foot and right tib-fib regions - no deep infection, no bone involvement, and just signs of cellulitis. ID consult obtained and I appreciate their recs; no changes in abx at this time. Cont current care plan. Clinically has good arterial circulation on exam. Appreciate orthopedic consultation as well. (2) History of OR (myocardial infarction): noted. cont BB, asa, statin. no ischemic symptoms at this time. (3) Pulmonary embolism: noted history of (4) DVT prophylaxis: heparin 5000 TID improving albeit slowly (as expected) updated at bedside Subjective patient feels RLE redness/swelling are improved. very concerned, however, about lack of more robust improvement despite 3-4 days of IV abx. minimal pain right foot and only w/ first few steps of ambulating. left arm swelling from IV infiltration improved. no new complaints. Review of Systems Constitutional: no fever, no chills, no fatigue and no anorexia Respiratory: no cough and no dyspnea Cardiovascular: no chest pain Gastrointestinal: no abdominal pain, no nausea and no vomiting Physical Exam Constitutional: well developed and well nourished; no acute distress ENMT: external ear and nose normal, oropharynx normal Respiratory: normal respiratory effort, lungs clear to auscultation Cardiovascular: Rate/Rhythm: regular rate and regular rhythm Heart Sounds: normal S1 and normal S2; no murmur Vessels: posterior tibial pulses present and dorsalis pedis pulses present; no JVD Extremities: + edema (right foot/ankle - 1+; right leg - 2+ to the thigh) RLE swelling overall improved relative to prior examinations Gastrointestinal (Abdomen): normal bowel sounds, soft, nontender, no hepatosplenomegaly Skin: ongoing cellulitis extending from proximal anterior thigh down to the foot; the erythema on the thigh has subsided/receded tremendously; there is ongoing warmth and redness (pink on most portions of skin) of the rest of the l eg; most intensely red areas are anterior plata and around the bottom of the foot (similar to previous exams). The gross edema of right foot and toes is improved. Ecchymoses about the first and second toes is again improved. Psychiatric: A+Ox3, euthymic affect Results & Data Vital Signs (Past 12 Hours) Vital Signs Temp Pulse Resp BP Pulse Ox 12/18/18 07:20 36.5 C 60 18 145/71 H 93 Laboratory Results CBC, BMP wnl Diagnostic Findings CT right foot - cellulitis; no osteomyelitis, abscess, air bubbles, etc CT right leg - cellulitis only; no osteomyelitis or deep infection PG Care Time/CCT Total # of Minutes Spent Total Time Spent with Patient: Total time spent is greater than 50% in coordination of care (as documented) at patient's floor/unit and/or counseling patient: (1) Pulmonary embolism Acute cor pulmonale presence: without acute cor pulmonale Chronicity: unspecified Pulmonary embolism type: unspecified Qualified Code(s): I26.99 - Other pulmonary embolism without acute cor pulmonale
[2018-12-19] MEDS: PIPERACILLIN/TAZOBACTAM 3.375 GM in DEXTROSE 5% 100 ML IV SCH ×3 (01:23→18:46)
[2018-12-19] MEDS ORDERED: VANCOMYCIN TROUGH ONE (05:30)
[2018-12-19] MEDS: HEPARIN SOD 5,000 UNIT/0.5 ML VIAL SQ SCH ×3 (05:59→22:32)
[2018-12-19] MEDS: VANCOMYCIN HCL 1,250 MG in SODIUM CHLORIDE 0.9% 250 ML IV SCH ×2 (05:59→20:09)
[2018-12-19 06:47] LABS: Creatinine Clr Calc Pharmacy 45.9 ml/min; Est GFR (African American) 51.2; Est GFR (Non-African American) 44.2
[2018-12-19] MEDS: LACTOBACILLUS ACIDOPHILUS (FLORANEX) TAB PO SCH ×3 (08:43→18:57)
[2018-12-19] MEDS: ASPIRIN 81 MG ECTAB PO SCH (08:44)
[2018-12-19] MEDS: CHLORTHALIDONE 25 MG TAB PO SCH (08:45)
[2018-12-19] MEDS: POTASSIUM CHLORIDE 20 MEQ TABCR PO SCH ×2 (08:45→20:11)
[2018-12-19] MEDS: ATORVASTATIN 40 MG TAB PO SCH (08:46)
[2018-12-19] MEDS: METOPROLOL SUCC 25MG EXT REL TAB PO SCH (08:46)
[2018-12-19] MEDS: TRIAMCINOLONE ACET 0.1% CR 80 GM TUBE EXT SCH ×4 (13:14→22:32)
--- NOTE | 2018-12-19 21:52 | Hospitalist Progress Note ---
Date of Service December 19, 2018 Assessment & Plan (1) Cellulitis of leg, right: Marked improvement overnight. All areas of the right leg are better. Day #5 zosyn/vanco. Appreciate Dr Guzman's consultation. Right foot and right tib-fib CT w/o deeper infection; specifically no osteomyelitis seen, abscess or evidence of necrotizing process. Dr Guzman recommending transition to PO bactrim and augmentin at discharge. Can likely make that change tomorrow on Friday. Appreciate ortho consult; no evidence of septic knee or other septic joint in RLE. (2) History of MA (myocardial infarction): noted. cont BB, asa, statin. no ischemic symptoms at this time. (3) Pulmonary embolism: noted history of (4) DVT prophylaxis: heparin 5000 TID updated at bedside anticipate d/c home on Friday, 12/20 transition to PO abx with probiotics then Subjective patient reports ongoing RLE improvement in edema and swelling and erythema. now with itchy rash on back. Left arm infiltration much improved. no diarrhea. eating well. NO PAIN in RLE with ambulation. Review of Systems Constitutional: no fever and no chills Respiratory: no cough and no dyspnea Cardiovascular: no chest pain Gastrointestinal: no abdominal pain Physical Exam Constitutional: well developed and well nourished; no acute distress ENMT: external ear and nose normal, oropharynx normal Respiratory: normal respiratory effort, lungs clear to auscultation Cardiovascular: Rate/Rhythm: regular rate and regular rhythm Heart Sounds: normal S1 and normal S2; no murmur Vessels: posterior tibial pulses present and dorsalis pedis pulses present; no JVD Extremities: + edema (right foot/ankle - 1+; right leg - 1-2+ to the thigh) Gastrointestinal (Abdomen): normal bowel sounds, soft, nontender, no hepatosplenomegaly Musculoskeletal: right knee - full active ROM present; TKR scar; no effusion of knee. Skin: erythema MARKEDLY IMPROVED in RLE; there is only light pink color in the majority of the leg. The previously intensely red skin over the plata is improved. Resolving blood blister in between digits 1/2. Deep red skin over boot of foot that encircles the foot is slightly improved as well. Psychiatric: A+Ox3, euthymic affect Results & Data Vital Signs (Past 12 Hours) Vital Signs Temp Pulse Resp BP Pulse Ox 12/19/18 15:24 36.2 C L 56 L 17 131/50 L 94 Laboratory Results Laboratory Results - last 24 hr 12/19/18 12/19/18 05:55 05:55 Creatinine 1.45 H Est Cr Clr Drug Dosing 45.9 Est GFR ( Amer) 51.2 Est GFR (Non-Af Amer) 44.2 Vancomycin Trough 15.5 PG Care Time/CCT Total # of Minutes Spent Total Time Spent with Patient: Total time spent is greater than 50% in coordination of care (as documented) at patient's floor/unit and/or counseling patient: (1) Pulmonary embolism Acute cor pulmonale presence: without acute cor pulmonale Chronicity: unspecified Pulmonary embolism type: unspecified Qualified Code(s): I26.99 - Other pulmonary embolism without acute cor pulmonale
[2018-12-20] MEDS: PIPERACILLIN/TAZOBACTAM 3.375 GM in DEXTROSE 5% 100 ML IV SCH ×2 (02:08→10:36)
[2018-12-20] MEDS: HEPARIN SOD 5,000 UNIT/0.5 ML VIAL SQ SCH (05:50)
[2018-12-20 06:51] LABS: Calcium 8.8 mg/dl (8.5-10.1); Creatinine Clr Calc Pharmacy 46.8 ml/min; Est GFR (African American) 52.6; Est GFR (Non-African American) 45.4; Potassium 4.5 mmol/L (3.5-5.1)
[2018-12-20] MEDS: LACTOBACILLUS ACIDOPHILUS (FLORANEX) TAB PO SCH ×2 (08:26→11:59)
[2018-12-20] MEDS: TRIAMCINOLONE ACET 0.1% CR 80 GM TUBE EXT SCH (08:28)
[2018-12-20] MEDS: METOPROLOL SUCC 25MG EXT REL TAB PO SCH (08:29)
[2018-12-20] MEDS: POTASSIUM CHLORIDE 20 MEQ TABCR PO SCH (08:29)
[2018-12-20] MEDS: ATORVASTATIN 40 MG TAB PO SCH (08:29)
[2018-12-20] MEDS: ASPIRIN 81 MG ECTAB PO SCH (08:29)
[2018-12-20] MEDS: CHLORTHALIDONE 25 MG TAB PO SCH (08:30)
[2018-12-20] MEDS: VANCOMYCIN HCL 1,250 MG in SODIUM CHLORIDE 0.9% 250 ML IV SCH (10:35)
--- NOTE | 2018-12-20 11:56 | Discharge Summary ---
Date of Service December 20, 2018 Admission HPI Per Admitting Provider 83 y/o M Hx CAD/NE, HTN, HLD, history of PE. The pt presents with inflammation of his RLE. He denies excessive pain, fevers or rigors. He has just returned from [place] where he states that he suffered multiple insect bites on his lower extremities. PMH: 1) History of PE 2) HTN 4) HLD 5) CAD - NE and 2 stents 2011. 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 Surgical: R TKR Social: Oldest son recently Family: Father following a CVA in his 60s Admission Exam Per Admitting Provider General: AAO x 3, no distress ENT: No erythema or exudates, no thrush Eyes: TANA, EOMI Head and neck: Normocephalic, atraumatic, No JVD, neck is supple. Chest/heart: Nontender, S1,2, RRR, no murmurs, no gallops Lungs: CTAB, no wheezing or crackles Abdomen: Nontender, nondistended, BS+ Neuro: AAO x 3, speech is clear, no unilateral weakness or loss of sensation, coordination intact Musculoskeletal: No joint inflammation, muscle tenderness, FROM - no tenderness to palpation of the R knee Skin: Cellulitis extends from the toes to the mid thigh and may be developing on the groin - there are a few necrotic areas of the R Principal Diagnosis Right leg cellulitis Discharge Exam Constitutional WD/WN, vitals as above Eyes PERRL, conjunctivae normal, anicteric sclerae ENMT external ear and nose normal, oropharynx normal Neck trachea midline, no thyromegaly Respiratory normal respiratory effort, lungs clear to auscultation Cardiovascular RRR, no murmur, no edema Gastrointestinal (Abdomen) normal bowel sounds, soft, nontender, no hepatosplenomegaly Musculoskeletal no cyanosis or clubbing, extremities motor strength 5/5 Skin normal turgor and + rash (mild erythema right lower leg, warm to palpation, non- tender); no wound Neurologic patellar DTR's 2+ bilat, sensation intact and PERRL, EOMI, accommodation nl, no face palsy, no dysarthria Psychiatric A+Ox3, euthymic affect Lymphatic no cervical or axillary lymphadenopathy Discharge Data Allergies Allergy/AdvReac Type Severity Reaction Status Date / Time No Known Allergies Allergy Verified 12/14/18 17:37 Consultations 12/15/18 01:42 ED Decision to Admit Stat 12/15/18 07:47 Consult Orthopedic Surgery Routine 12/18/18 15:09 Consult Infectious Diseases Routine Ordered Studies 12/14/18 23:41 US venous doppler LE RT Urgent 12/18/18 15:09 CT foot RT wo con Routine CT tib/fib RT wo con Routine Hospital Course (1) Cellulitis of leg, right: Marked improvement over the past several days. All areas of the right leg are better. Day #6 zosyn/vanco. Appreciate Dr Guzman's consultation. Right foot and right tib-fib CT w/o deeper infection; specifically no osteomyelitis seen, abscess or evidence of necrotizing process venous doppler without evidence of DVT Dr Guzman recommending transition to PO bactrim and augmentin at discharge. will d/c home on Bactrim DS x 7 days and Augmentin x 7 days follow up with PCP later this week Appreciate ortho consult; no evidence of septic knee or other septic joint in RLE. (2) History of NE (myocardial infarction): noted. cont BB, asa, statin. no ischemic symptoms at this time. heart healthy diet drinks wine occasionally (3) Pulmonary embolism: noted history of such no evidence of current DVT in right leg (4) DVT prophylaxis: heparin 5000 TID updated at bedside d/c to home Total Time Total Time Spent Total Time Spent (In Minutes): 31 minutes Total Time Includes: Examination of the Patient, Discharge Planning, Medication Reconciliation and Other (answering 's questions) Discharge Plan Discharge Items Patient Disposition: Home - Self-Care Reason For Visit: CELLULITIS Discharge Diagnosis: right leg cellulitis Condition: Good Discharge Goals: Improve disease control and Improve function Activity: Resume your previous activity Non-emergency contact: Primary Care Provider Call non-emergency contact if: you have any medication questions, your symptoms worsen, your pain is not controlled and you have a fever Follow-up/Referrals: Saadia Curtis MD [Primary Care Provider] - Diet: Heart Healthy Addtl Provider Instructions: Medications: - BACTRIM: take twice a day for 14 more doses (7 days) - AUGMENTIN: take twice a day for 14 more doses (7 days) Cellulitis of right leg improved with IV antibiotics, Vancomycin and Zosyn Dr. Guzman with infectious disease recommends Bactrim and Augmentin received 5 days in the hospital will treat for 7 more days as typically cellulitis requires 10-14 days to resolve follow up with Dr. Curtis next week, call for appt Prescriptions: New triamcinolone acetonide 0.1 % Cream 1 applic EXT TID 7 Days Qty: 15 RF: 0 sulfamethoxazole-trimethoprim [Bactrim DS] 800-160 mg tablet 1 tab PO BID 7 Days Qty: 14 RF: 0 amoxicillin-pot clavulanate 875-125 mg tablet 1 tab PO BID Qty: 14 RF: 0 Continued atorvastatin 80 mg tablet 40 mg PO QAM Qty: 90 RF: 0 chlorthalidone 25 mg tablet 25 mg PO QAM Qty: 90 RF: 0 metoprolol succinate 25 mg tablet extended release 24 hr 25 mg PO QAM Qty: 90 RF: 0 aspirin [Aspirin Low Dose] 81 mg Tablet,Delayed Release (Dr/Ec) 81 mg PO DAILY RF: 0 Stand-Alone Forms: [facility] Discharge Orders: Discharge Order (Routine); Ordered 12/20/18 Ordered By: Jarod Troy Admission Data Admit Date/Time: 12/15/18 05:18 Attending Provider: Jarod Troy Admit Provider: Alen Akhtar Primary Care Provider: Saadia Curtis Other Providers: Alen Akhtar ; Leandro Zavala Jennifer Service: Surgical Services
== END 2018-12-20 13:06 | disposition home or self-care (01) | DRG 603 ==
LOC: ED 23:13 → 3N 12-15 05:18 → SUATTDRO 12-15 05:18 → 3N 12-15 07:27

== ENCOUNTER 2020-11-23 12:35 | Inpatient (IN) ==
[2020-11-23 13:11] LABS: Basophils # (auto) 0.01 K/uL (0-0.2); Basophils % (auto) 0.1 %; Eosinophils # (auto) 0.03 K/uL (0-0.5); Eosinophils % (auto) 0.2 %; Hematocrit (blood only) 41.8 % (42-52); Hemoglobin 14.2 g/dL (14.0-18.0); Immature Granulocytes # (auto) 0.04 K/uL (0.00-0.02); Immature Granulocytes % (auto) 0.3 %; Lymphocytes # (auto) 0.55 K/uL (1.2-3.4); Lymphocytes % (auto) 3.5 %; Mean Corpuscular Volume 97.2 fL (80-100); Mean Platelet Volume 10.5 fL (7.4-10.4); Monocytes % (auto) 4.5 %; Neutrophils % (auto) 91.4 %; Platelet Count 200 K/uL (130-400); RDW Coefficient of Variation 13.8 % (11.5-14.5); RDW Standard Deviation 48.9 fL (36.4-46.3); White Blood Count 15.63 K/uL (4.8-10.8)
[2020-11-23 13:34] LABS: Blood Urea Nitrogen 38 mg/dl (7-18); Carbon Dioxide 26 mmol/L (21-32); Chloride 107 mmol/L (98-107); Potassium 3.8 mmol/L (3.5-5.1); Sodium 138 mmol/L (136-145)
[2020-11-23 13:35] LABS: Alanine Aminotransferase 29 U/L (12-78); Albumin Level 3.6 gm/dl (3.4-5.0); Aspartate Aminotransferase 21 U/L (15-37); BUN Creatinine Ratio 24.1 (10-20); Calcium 9.1 mg/dl (8.5-10.1); Creatinine Clr Calc Pharmacy 41.5 ml/min; Est GFR (African American) 45.6 ml/min; Est GFR (Non-African American) 39.3 ml/min; Glucose 162 mg/dl (70-99); Magnesium 1.9 mg/dl (1.8-2.4)
[2020-11-23 13:39] LABS: Albumin Globulin Ratio 1.2 (0.9-2); Alkaline Phosphatase 129 U/L (45-117); Bilirubin,Total 1.3 mg/dl (0.2-1); Total Protein 6.6 gm/dl (6.4-8.2); Troponin I < 0.015 ng/ml (0-0.045)
--- NOTE | 2020-11-23 13:47 | XRay Report ---
SINGLE VIEW CHEST CLINICAL HISTORY: Dyspnea. FINDINGS: An AP, portable, upright chest radiograph is compared to chest x-ray and chest CT dated 10/30. The examination is mildly degraded by portable technique and patient rotation. The heart is en larged noting atherosclerotic calcification of the thoracic aorta. There is pulmonary vascular conges tion. Atelectasis is seen at the lung bases. No large pleural effusion or pneumothorax is identified. The skeletal structures are osteopenic. The bony thorax is grossly intact. Degenerative change is no diego in the shoulders and thoracic spine. IMPRESSION: Cardiomegaly with evidence of mild congestive failure. ACT 112: Negative or not required by law. Electronically signed by: Luis Helton M.D. 11/23/2020 1:46 PM
[2020-11-23 14:12] LABS: Partial Thromboplastin Ratio 0.9; Partial Thromboplastin Time 22.5 Seconds (21.0-31.0); Prothrombin Time 10.1 Seconds (9.0-12.0)
[2020-11-23] MEDS ORDERED: FUROSEMIDE 40 MG/4 ML VIAL IV STA (14:14)
[2020-11-23] MEDS ORDERED: ONDANSETRON INJ 2 MG/ML 2 ML VIAL IV STA (15:49)
--- NOTE | 2020-11-23 15:49 | Electrocardiogram Report ---
Test Reason : Blood Pressure : / mmHG Vent. Rate : 062 BPM Atrial Rate : 062 BPM P-R Int : 188 ms QRS Dur : 096 ms QT Int : 422 ms P-R-T Axes : 017 007 011 degrees QTc Int : 428 ms Normal sinus rhythm Normal ECG When compared with ECG of 30-OCT-2018 12:33, No significant change was found Confirmed by Brennen Tomlinson ([id number]) on 11/23/2020 3:48:29 PM Referred By: Confirmed By:Brennen Tomlinson
--- NOTE | 2020-11-23 16:04 | Emergency Department Note ---
History of Present Illness General Chief complaint: Illness Time Seen by Provider: 11/23/20 13:44 History of Present Illness Provider complaint: Shortness of breath Onset (ago): day(s) 1 Maximum Pain Intensity: 0 Associated symptoms: + fever/chills (Chills no fever) and + shortness of breath; no confusion, no chest pain, no cough, no headaches and no nausea/vomiting 85-year-old male presents emergency department with chills and shortness of jesse th. Patient reports his symptoms began earlier today when he was mowing the lawn. He denies any falls. He denies any cough. Denies any chest pain. Patient states he has a history of coronary artery disease and has 2 stents in his heart. He reports chills but no fevers. He denies being exposed to anyone with COVID-19 and states he has not been vaccinated against COVID-19. Home Medications Medication Instructions Recorded Confirmed Type aspirin [Aspirin Low Dose] 81 mg PO DAILY 10/30/18 11/23/20 History echinacea purpurea extract 0 mg PO UD PRN 12/29/18 11/23/20 History [echinacea] atorvastatin 80 mg tablet 40 mg PO QAM #45 tab 12/08/19 11/23/20 Rx metoprolol succinate 25 mg 25 mg PO QAM #90 tab 12/08/19 11/23/20 Rx tablet,extended release 24 hr torsemide 10 mg tablet 10 mg PO DAILY #90 tab 08/09/20 11/23/20 Rx ergocalciferol (vitamin D2) 1,250 1,250 mcg PO .COMPLEX #21 cap 11/02/2011/23 Rx mcg (50,000 unit) capsule Allergies Allergy/AdvReac Type Severity Reaction Status Date / Time No Known Allergies Allergy Verified 11/23/20 14:54 Past Med/Surg History Medical History (Updated 11/23/20 @ 17:13 by Wenceslao Tena) CAD in [place] artery Cellulitis of leg, right Chronic kidney disease, stage 3 (moderate) Edema Fracture, humerus Hearing loss, bilateral History of [place] (myocardial infarction) Hyperlipidemia Hyperparathyroidism Hypertension Kidney stones Osteoarthritis, multiple sites Pulmonary embolism (02/19/14) Vitamin D deficiency Surgical History History of knee replacement procedure of right knee S/P coronary artery stent placement Family History Aunt Breast cancer Mother Hypertension Kidney disease Father Myocardial infarction Denies family history of Ovarian cancer Prostate cancer Diabetes Lung cancer Colorectal cancer Social History Smoking Status: Never smoker Tobacco Type: Cigarettes Second Hand Exposure: No; Hx Alcohol Use: No Hx Substance Use: No Preferred Language: Norwegian Communication Ability: Effective Acid Regenerator Required: No Beliefs That Will Affect Care: None marital status: Current Living Situation: Spouse current occupational status: retired Feels Safe at Home: Yes Childhood Exposure to Second-Hand Smoke: No caffeine: Yes (coffee) Dental Care, Regularly: No Physical Activity Frequency: Does not Exercise Seatbelt Use: always Sunscreen Use: Yes Assistive Devices: None Review of Systems A total of 10 systems reviewed and were otherwise negative Physical Exam Vital Signs Vital Signs - 24 hr 11/23/20 12:36 11/23/20 13:03 11/23/20 14:38 Temperature 36.9 C Temperature Source Oral Pulse Rate 62 Pulse Rate [Right Finger] 68 Pulse Rhythm [Right Finger] Respiratory Rate 24 16 21 Respiratory Effort / Characteristics Spontaneous Non-Labored Respiratory Depth Normal Blood Pressure 157/60 H Blood Pressure [Left Arm] 153/68 H Blood Pressure Mean 92 Blood Pressure Mean [Left Arm] 96 Pulse Oximetry 98 98 96 Oxygen Delivery Method Room Air Room Air Room Air Oxygen Flow Rate Sepsis Recent Fever Within 48 Hours No Sepsis New/Unexplained Change in Mental Status N/A Sepsis Action Taken by Nursing No Action Required 11/23/20 16:26 Temperature Temperature Source Pulse Rate Pulse Rate [Right Finger] 65 Pulse Rhythm [Right Finger] Regular Respiratory Rate 20 Respiratory Effort / Characteristics Non-Labored Respiratory Depth Normal Blood Pressure Blood Pressure [Left Arm] 124/68 Blood Pressure Mean Blood Pressure Mean [Left Arm] 86 Pulse Oximetry 96 Oxygen Delivery Method Nasal Cannula Oxygen Flow Rate 2 Sepsis Recent Fever Within 48 Hours Sepsis New/Unexplained Change in Mental Status Sepsis Action Taken by Nursing Physical Exam GENERAL: He is oriented to person, place, and time. He appears well-developed and well-nourished. He does not appear distressed. HENT: Exam performed. - Head: Normocephalic and atraumatic. - Right Ear: External ear normal. No mastoid tenderness. - Left Ear: External ear normal. No mastoid tenderness. - Mouth/Throat: The oropharynx is clear and moist. No trismus in the jaw. No dental abscesses or uvula swelling. No oropharyngeal exudate or tonsillar abscesses. EYES: Conjunctivae and EOM are normal. Pupils are equal, round, and reactive to light. Right eye exhibits no discharge. Left eye exhibits no discharge. No scleral icterus. NECK: Normal range of motion. Neck supple. No JVD present. No spinous process tenderness present. No carotid bruit present. No rigidity. No tracheal deviation and normal range of motion present. No Brudzinski's sign and no Kernig's sign noted. CV: Normal rate, regular rhythm, normal heart sounds and intact distal pulses. Palpable radial pulses bue. PULM/CHEST: Inspiratory rales at the bases bilaterally. - Chest Wall: He exhibits no tenderness. ABD: The abdomen is soft. Bowel sounds are normal. He has no distension. No mass is present. There is no tenderness. There is no rebound, no guarding, no Wilks's sign and no tenderness at McBurney's point. Rovsig negative. MUSC/SKEL: Normal range of motion. 1+ pitting edema of the bilateral lower extremities. No tenderness or deformity. LYMPH: No cervical adenopathy. NEURO: He is alert and oriented to person, place, and time. He has normal strength. No cranial nerve deficit or sensory deficit. Coordination and gait normal. GCS eye subscore is 4. GCS verbal subscore is 5. GCS motor subscore is 6. Cerebellar tests wnl. SKIN: Erythema and warmth over the left anterior lower extremities PSYCH: He has a normal mood and affect. Behavior is normal. Judgment and thought content normal. Course Course 1344: The patient was evaluated in room A12. A complete history and physical exam was performed Cardiac monitoring: An order was placed for continuous cardiac monitoring. The monitor shows a rate of 60 with sinus rhythm 1704: Vital signs stable. Labs show a creatinine of 1.58 and leukocytosis of 15.6. Chest x-ray shows cardiomegaly with mild congestive failure. Patient will be swab for Covid and admitted to the hospital service for CHF. Patient states been diagnosed with CHF. Discussed the case with [facility] hospitalist Concepcion who recommends Lasix IVP. Vancomycin ordered for the patient for the cellulitis on the left lower extremity. Administered Medications Discontinued Medications Furosemide (Furosemide 40 Mg/4 Ml Vial) 20 mg IV NOW STA Stop: 11/23/20 14:15 Last Admin: 11/23/20 14:39 Dose: 20 mg Documented by: [id number] Ondansetron HCl (Ondansetron Inj 2 Mg/Ml 2 Ml Vial) 4 mg IV NOW STA Stop: 11/23/20 15:50 Last Admin: 11/23/20 15:52 Dose: 4 mg Documented by: [id number] Medical Decision Making Laboratory Data Result diagrams: 11/23/20 12:47 11/23/20 12:47 Lab Results 11/23/20 11/23/20 11/23/20 Range/Units 12:47 12:47 13:52 WBC 15.63 H (4.8-10.8) K/uL RBC 4.30 L (4.7-6.1) M/uL Hgb 14.2 (14.0-18.0) g/dL Hct 41.8 L (42-52) % MCV 97.2 (80-100) fL MCH 33.0 (25-34) pg MCHC 34.0 (32-36) g/dL RDW Std Deviation 48.9 H (36.4-46.3) fL RDW Coeff of Anjelica 13.8 (11.5-14.5) % Plt Count 200 (130-400) K/uL MPV 10.5 H (7.4-10.4) fL Immature Gran % (Auto) 0.3 % Neut % (Auto) 91.4 % Lymph % (Auto) 3.5 % Atkinson % (Auto) 4.5 % Eos % (Auto) 0.2 % Baso % (Auto) 0.1 % Neut # (Auto) 14.30 H (1.4-6.5) K/uL Lymph # (Auto) 0.55 L (1.2-3.4) K/uL Atkinson # (Auto) 0.70 H (0.11-0.59) K/uL Eos # (Auto) 0.03 (0-0.5) K/uL Baso # (Auto) 0.01 (0-0.2) K/uL Immature Gran # (Auto) 0.04 H (0.00-0.02) K/uL PT 10.1 (9.0-12.0) Seconds INR 1.0 (0.9-1.1) APTT 22.5 (21.0-31.0) Seconds PTT Ratio 0.9 Sodium 138 (136-145) mmol/L Potassium 3.8 (3.5-5.1) mmol/L Chloride 107 (98-107) mmol/L Carbon Dioxide 26 (21-32) mmol/L Anion Gap 6.0 (3-11) BUN 38 H (7-18) mg/dl Creatinine 1.58 H (0.6-1.4) mg/dl Est Cr Clr Drug Dosing 41.5 ml/min Est GFR ( Amer) 45.6 ml/min Est GFR (Non-Af Amer) 39.3 ml/min BUN/Creatinine Ratio 24.1 H (10-20) Glucose 162 H (70-99) mg/dl Calcium 9.1 (8.5-10.1) mg/dl Magnesium 1.9 (1.8-2.4) mg/dl Total Bilirubin 1.3 H (0.2-1) mg/dl AST 21 (15-37) U/L ALT 29 (12-78) U/L Alkaline Phosphatase 129 H (45-117) U/L Troponin I < 0.015 (0-0.045) ng/ml Total Protein 6.6 (6.4-8.2) gm/dl Albumin 3.6 (3.4-5.0) gm/dl Globulin 3.0 (2.5-4.0) gm/dl Albumin/Globulin Ratio 1.2 (0.9-2) COVID-19 Eval Order SARS-CoV-2 (PCR) (Negative) 11/23/20 11/23/20 Range/Units 14:44 14:44 WBC (4.8-10.8) K/uL RBC (4.7-6.1) M/uL Hgb (14.0-18.0) g/dL Hct (42-52) % MCV (80-100) fL MCH (25-34) pg MCHC (32-36) g/dL RDW Std Deviation (36.4-46.3) fL RDW Coeff of Anjelica (11.5-14.5) % Plt Count (130-400) K/uL MPV (7.4-10.4) fL Immature Gran % (Auto) % Neut % (Auto) % Lymph % (Auto) % Atkinson % (Auto) % Eos % (Auto) % Baso % (Auto) % Neut # (Auto) (1.4-6.5) K/uL Lymph # (Auto) (1.2-3.4) K/uL Atkinson # (Auto) (0.11-0.59) K/uL Eos # (Auto) (0-0.5) K/uL Baso # (Auto) (0-0.2) K/uL Immature Gran # (Auto) (0.00-0.02) K/uL PT (9.0-12.0) Seconds INR (0.9-1.1) APTT (21.0-31.0) Seconds PTT Ratio Sodium (136-145) mmol/L Potassium (3.5-5.1) mmol/L Chloride (98-107) mmol/L Carbon Dioxide (21-32) mmol/L Anion Gap (3-11) BUN (7-18) mg/dl Creatinine (0.6-1.4) mg/dl Est Cr Clr Drug Dosing ml/min Est GFR ( Amer) ml/min Est GFR (Non-Af Amer) ml/min BUN/Creatinine Ratio (10-20) Glucose (70-99) mg/dl Calcium (8.5-10.1) mg/dl Magnesium (1.8-2.4) mg/dl Total Bilirubin (0.2-1) mg/dl AST (15-37) U/L ALT (12-78) U/L Alkaline Phosphatase (45-117) U/L Troponin I (0-0.045) ng/ml Total Protein (6.4-8.2) gm/dl Albumin (3.4-5.0) gm/dl Globulin (2.5-4.0) gm/dl Albumin/Globulin Ratio (0.9-2) COVID-19 Eval Order Covid19 at [facility] SARS-CoV-2 (PCR) NEGATIVE (Negative) Imaging Data Radiologist's Impression: Chest X-Ray 11/23/20 12:49 SINGLE VIEW CHEST CLINICAL HISTORY: Dyspnea. FINDINGS: An AP, portable, upright chest radiograph is compared to chest x-ray and chest CT dated 10/30/2018. The examination is mildly degraded by portable technique and patient rotation. The heart is enlarged noting atherosclerotic calcification of the thoracic aorta. There is pulmonary vascular congestion. Atelectasis is seen at the lung bases. No large pleural effusion or pneumothorax is identified. The skeletal structures are osteopenic. The bony thorax is grossly intact. Degenerative change is noted in the shoulders and thoracic spine. IMPRESSION: Cardiomegaly with evidence of mild congestive failure. ACT 112: Negative or not required by law. Electronically signed by: Luis Helton M.D. 11/23/2020 1:46 PM ECG Data Indication: + SOB/dyspnea Rate (beats per minute): 62 Rhythm: + normal sinus ECG Intervals/blocks: + Normal QRS, + Normal MN and + Normal QT-c ECG ST segments: + Normal ST segments [facility] Narrative 1344: The patient was evaluated in room A12. A complete history and physical exam was performed Cardiac monitoring: An order was placed for continuous cardiac monitoring. The monitor shows a rate of 60 with sinus rhythm 1704: Vital signs stable. Labs show a creatinine of 1.58 and leukocytosis of 15.6. Chest x-ray shows cardiomegaly with mild congestive failure. Patient will be swab for Covid and admitted to the hospital service for CHF. Patient states been diagnosed with CHF. Discussed the case with [facility] hospitalist Concepcion who recommends Lasix IVP. Vancomycin ordered for the patient for the cellulitis on the left lower extremity. Impression & Plan Cellulitis of leg, right, CHF (congestive heart failure) Discharge Plan Visit Data Chief Complaint: Illness ED Provider: Wenceslao Tena Discharge Problem: Cellulitis of leg, right, CHF (congestive heart failure) Patient Disposition: Admitted As Inpatient Forms Stand Alone Forms: [facility] Prescriptions Prescriptions: No Action torsemide 10 mg tablet 10 mg PO DAILY Qty: 90 RF: 3 ergocalciferol (vitamin D2) 1,250 mcg (50,000 unit) capsule 1,250 mcg PO .COMPLEX Qty: 21 RF: 0 atorvastatin 80 mg tablet 40 mg PO QAM Qty: 45 RF: 3 metoprolol succinate 25 mg tablet extended release 24 hr 25 mg PO QAM Qty: 90 RF: 3 echinacea purpurea extract [echinacea] 125 mg Tablet 0 mg PO UD PRN (Reason: for preventrion of colds) RF: 0 aspirin [Aspirin Low Dose] 81 mg Tablet,Delayed Release (Dr/Ec) 81 mg PO DAILY RF: 0 Referrals Referrals: Saadia Curtis MD [Primary Care Provider] - Discharge Problem: CHF (congestive heart failure) Qualifiers: Heart failure type: unspecified Heart failure chronicity: unspecified Qualified Code(s): I50.9 - Heart failure, unspecified
--- NOTE | 2020-11-23 16:08 | History & Physical Report ---
Date of Service November 23, 2020 Assessment & Plan (1) Cellulitis of left lower leg: Mr. Lopez is an 85-year-old male with a history of LAD [place] STEMI s/p PCI 09/21/2011, Hypertension, Dyslipidemia, Chronic Venous Insufficiency with Chronic Leg Edema, Osteoarthritis, Hyperparathyroidism and Stage 3 Chronic Kidney Disease who presents to [facility] ER today complaining of Rigors and Chills that began earlier today and these symptoms appear to be secondary to a LLE Cellulitis. -- Admit to Med Surg. -- IV Vancomycin given in the ER. -- Blood cultures ordered. -- Begin IV Ancef 2 g every 8 hours. -- Elevate leg when off of it. -- Compression stockings ordered to reduce edema - if patient tolerates. -- Erythema was marked with a marker. -- Ultrasound LLE to rule out abscess. (2) CHF (congestive heart failure): -- Neck veins are flat, lungs clear. -- CXR showed cardiomegaly with mild congestive change. -- Check Pro-BNP. -- Continue Torsemide 10 mg daily. -- Measure I&O's. -- Monitor body weights. (3) CAD in [place] artery: -- No angina pectoris or anginal equivalent symptoms. -- Continue Metoprolol Succinate ER 25 mg daily. -- Continue Aspirin 81 mg daily. -- Continue Atorvastatin 40 mg daily. (4) Hypertension: BP appears to be well controlled. -- Continue Torsemide 10 mg daily. -- Continue Metoprolol Succinate ER 25 mg daily. (5) Hyperlipidemia: -- Continue Atorvastatin 40 mg daily. History of Present Illness Primary Care Provider: Saadia Curtis MD Mr. Lopez is an 85-year-old male with a history of [place] STEMI s/p PCI 09/21/2011, Hypertension, Dyslipidemia, Chronic Venous Insufficiency with Chronic Leg Edema, Osteoarthritis, Hyperparathyroidism and Stage 3 Chronic Kidney Disease who presents to [facility] ER today complaining of rigors and chills that began today while he was mowing his lawn. He felt like he could not get warm, so he stopped mowing, walked in the house to get a jacket. He was shaking uncontrollably by this time as his witnessed it. He may have felt mildly short of breath while this was going on, but he has not had any cough, rodriguez shortness of breath, sputum production, or any upper respiratory tract symptoms. Patient did not take his temperature so he does not know if he had a fever or not. He continued to experience rigors and chills, and began to feel wiped out. He decided to stop mowing, and come in for evaluation in the emergency room. Patient has a negative review of systems. He has not had any headache, stiff neck, nausea, vomiting, diarrhea, myalgias, or arthralgias. He has not had any recent exposures to COVID or other sick contacts. He denies any skin lesions, open areas on his legs, or ulcerations. He has not had any urinary frequency, urgency, or dysuria. His oral intake has been stable, and he is drinking plenty of fluids. Patient is compliant with his medications and has not had any adverse side effects. No recent changes in his medications. HISTORICAL BACKGROUND: On 09/21/2011, he developed angina at rest. He required defibrillation in route to the hospital for V-Fib arrest and also required defibrillation during Coronary Angiography. He underwent PCI with 2 bare metal stents for an occluded LAD with thrombus. He has had the following studies/procedures: 1. Cardiac Catheterization 09/21/2011: -- Prox LMCA 20%. Prox LAD 100%. Prox Cx 30%. Mid RCA 60%. -- LVEF 40% to 45%. Anterior wall hypokinesis. -- Aspiration thrombectomy to proximal LAD. -- Integrity 3 x 8 mm and 3 x 12 mm bare metal stents placed within the proximal LAD in overlapping fashion. -- Post dilated with 3.25 mm noncompliant balloon. 2. Dobutamine Stress Echo 10/21/2014: -- Negative for ischemia at 94% MPHR. EF 60%. No significant valvular abnormalities. 3. Echocardiogram 05/06/2019: -- Normal LV size, wall motion, systolic function. -- LVEF 65%-70%. No LVH. -- No significant valvular abnormalities. -- RVSP 31 mmHg. -- Hepatic cyst (noted on previous CT scan). Allergies Allergy/AdvReac Type Severity Reaction Status Date / Time No Known Allergies Allergy Verified 11/23/20 14:54 Home Medications Medication Instructions Recorded Confirmed Type aspirin [Aspirin Low Dose] 81 mg PO DAILY 10/30/18 11/23/20 History echinacea purpurea extract 0 mg PO UD PRN 12/29/18 11/23/20 History [echinacea] atorvastatin 80 mg tablet 40 mg PO QAM #45 tab 12/08/19 11/23/20 Rx metoprolol succinate 25 mg 25 mg PO QAM #90 tab 12/08/19 11/23/20 Rx tablet,extended release 24 hr torsemide 10 mg tablet 10 mg PO DAILY #90 tab 08/09/20 11/23/20 Rx ergocalciferol (vitamin D2) 1,250 1,250 mcg PO .COMPLEX #21 cap 11/02/20 11/23/20 Rx mcg (50,000 unit) capsule Past Med/Surg History Medical History (Updated 11/23/20 @ 17:35 by Raymon Holly PA-C) CAD in [place] artery Chronic kidney disease, stage 3 (moderate) Edema Fracture, humerus Hearing loss, bilateral History of MT (myocardial infarction) Hyperlipidemia Hyperparathyroidism Hypertension Kidney stones Osteoarthritis, multiple sites Pulmonary embolism (02/19/14) Vitamin D deficiency Surgical History History of knee replacement procedure of right knee S/P coronary artery stent placement Family History Aunt Breast cancer Mother Hypertension Kidney disease Father Myocardial infarction Denies family history of Ovarian cancer Prostate cancer Diabetes Lung cancer Colorectal cancer Social History Smoking Status: Former smoker Tobacco Type: Cigarettes Second Hand Exposure: No; Do You Dip or Chew Tobacco: No; Tobacco Cessation Education Requested by Patient: No Hx Alcohol Use: Yes Alcohol type: beer Hx Substance Use: No Preferred Language: Tam[place] Communication Ability: Effective Senior Sas Developer Required: No Beliefs That Will Affect Care: None marital status: Current Living Situation: Spouse current occupational status: retired Other Information That Helps Us Care for You: No Feels Safe at Home: Yes Safety Concerns: Feels Safe At This Time Childhood Exposure to Second-Hand Smoke: No caffeine: Yes (coffee) Dental Care, Regularly: No Physical Activity Frequency: Does not Exercise Seatbelt Use: always Sunscreen Use: Yes Assistive Devices: Hearing Aid - Bilateral Assistive Devices Comment: upper and lower partials Review of Systems Review of Systems: All systems reviewed & are unremarkable except as noted in Subjective Physical Exam Physical Exam: GENERAL: Patient in no acute distress. HEENT: Head is atraumatic, normocephalic. EOM's intact. Facies symmetric. No perioral cyanosis. NECK: No JVD. JVP is not elevated. Carotid upstrokes are + 2 bilaterally. No bruits are noted. CHEST/LUNGS: Clear to auscultation throughout all lung barton. No wheezes, rales, or crackles. CVS: S1 and S2 are regular without murmurs, gallops, or rubs. PMI is nondisplaced. No lifts, heaves, or thrills. No abdominal aortic or renal bruits. ABDOMINAL EXAM: Bowel sounds are present. No masses, organomegaly, or tenderness. EXTREMITIES: No clubbing or cyanosis. Plus one right lower extremity edema, +2 lower extremity edema. The left anterolateral leg is erythematous, hot to the touch. The erythema extends down onto the right dorsal foot, to the base of the toes, down on to the lateral foot and the medial malleolus. Distal capillary refill is brisk. Palpable dorsalis pedis pulses bilaterally, suspect they are normal but difficult to say with edema. Intact radial pulses bilaterally. NEUROLOGIC EXAM: Patient is awake, alert, and oriented. Pleasant and cooperative. Answers questions appropriately. Speech is clear. Normal movement in all 4 extremities. Gait pattern was not evaluated. Blood cultures x 2 ordered. Results & Data Results & Data ([facility]) Vital Signs (Past 12 Hours) Vital Signs Temp Pulse Pulse Resp BP BP Pulse Ox 11/23/20 14:38 68 21 153/68 H 96 11/23/20 13:03 16 98 11/23/20 12:36 36.9 C 62 24 157/60 H 98 Laboratory Results Laboratory Results - last 24 hr 11/23/20 11/23/20 11/23/20 12:47 12:47 13:52 WBC 15.63 H RBC 4.30 L Hgb 14.2 Hct 41.8 L MCV 97.2 MCH 33.0 MCHC 34.0 RDW Std Deviation 48.9 H RDW Coeff of Anjelica 13.8 Plt Count 200 MPV 10.5 H Immature Gran % (Auto) 0.3 Neut % (Auto) 91.4 Lymph % (Auto) 3.5 [place] % (Auto) 4.5 Eos % (Auto) 0.2 Baso % (Auto) 0.1 Neut # (Auto) 14.30 H Lymph # (Auto) 0.55 L [place] # (Auto) 0.70 H Eos # (Auto) 0.03 Baso # (Auto) 0.01 Immature Gran # (Auto) 0.04 H PT 10.1 INR 1.0 APTT 22.5 PTT Ratio 0.9 Sodium 138 Potassium 3.8 Chloride 107 Carbon Dioxide 26 Anion Gap 6.0 BUN 38 H Creatinine 1.58 H Est Cr Clr Drug Dosing 41.5 Est GFR ( Amer) 45.6 Est GFR (Non-Af Amer) 39.3 BUN/Creatinine Ratio 24.1 H Glucose 162 H Calcium 9.1 Magnesium 1.9 Total Bilirubin 1.3 H AST 21 ALT 29 Alkaline Phosphatase 129 H Troponin I < 0.015 Total Protein 6.6 Albumin 3.6 Globulin 3.0 Albumin/Globulin Ratio 1.2 COVID-19 Eval Order SARS-CoV-2 (PCR) 11/23/20 11/23/20 14:44 14:44 WBC RBC Hgb Hct MCV MCH MCHC RDW Std Deviation RDW Coeff of Anjelica Plt Count MPV Immature Gran % (Auto) Neut % (Auto) Lymph % (Auto) [place] % (Auto) Eos % (Auto) Baso % (Auto) Neut # (Auto) Lymph # (Auto) [place] # (Auto) Eos # (Auto) Baso # (Auto) Immature Gran # (Auto) PT INR APTT PTT Ratio Sodium Potassium Chloride Carbon Dioxide Anion Gap BUN Creatinine Est Cr Clr Drug Dosing Est GFR ( Amer) Est GFR (Non-Af Amer) BUN/Creatinine Ratio Glucose Calcium Magnesium Total Bilirubin AST ALT Alkaline Phosphatase Troponin I Total Protein Albumin Globulin Albumin/Globulin Ratio COVID-19 Eval Order Covid19 at [facility] SARS-CoV-2 (PCR) NEGATIVE Diagnostic Findings CXR 11/23/20: An AP, portable, upright chest radiograph is compared to chest x-ray and chest CT dated 10/30/2018. The examination is mildly degraded by portable technique and patient rotation. The heart is enlarged noting atherosclerotic calcification of the thoracic aorta. There is pulmonary vascular congestion. Atelectasis is seen at the lung bases. No large pleural effusion or pneumothorax is identified. The skeletal structures are osteopenic. The bony thorax is grossly intact. Degenerative change is noted in the shoulders and thoracic spine. IMPRESSION: -- Cardiomegaly with evidence of mild congestive failure. Medications Administered Medications aspirin [Aspirin Low Dose] 81 mg PO DAILY 10/30/18 [History Confirmed 11/23/20] echinacea purpurea extract [echinacea] 0 mg PO UD PRN 12/29/18 [History Confirmed 11/23/20] atorvastatin 80 mg tablet 40 mg PO QAM #45 tab 12/08/19 [Rx Confirmed 11/23/20] metoprolol succinate 25 mg tablet,extended release 24 hr 25 mg PO QAM #90 tab 12/08/19 [Rx Confirmed 11/23/20] torsemide 10 mg tablet 10 mg PO DAILY #90 tab 08/09/20 [Rx Confirmed 11/23/20] ergocalciferol (vitamin D2) 1,250 mcg (50,000 unit) capsule 1,250 mcg PO .COMPLEX #21 cap 11/02/20 [Rx Confirmed 11/23/20] Home Medications Vancomycin HCl 2,250 mg/ (Sodium Chloride) 545 mls @ 200 mls/hr IV NOW ONE Stop: 11/23/20 19:24 Miscellaneous Information (Vancomycin Consult Active) 1 ea N/A UD PRN PRN Reason: Consult Stop: 12/23/20 16:40 Code Status & VTE Plan Code Status Full Code VTE Prophylaxis Plan VTE Prophylaxis will be ordered: Yes Supervising Physician Co-Signing Physician Notes Discussed case with ADY, agree with his note above. Patient initially presented with rigors and chills. Initial concern for CHF the patient apparently has a very edematous right lower extremity has concerning for cellulitis. Plan to continue diuretics with torsemide daily. Patient received 20 mg of IV furosemide. IV vancomycin was also given the ER, this can be changed over to Ancef 2 g every 8 hours. If there is no relief in 24-48 hours can consider expanding antibiotic spectrum. PT/OT evaluation. Continue other medications as noted above. PG Care Time/CCT Total # of Minutes Spent Total Time Spent with Patient: Total time spent is greater than 50% in coordination of care (as documented) at patient's floor/unit and/or counseling patient:40 Coding Level of Care Code 62682 OBS Care - Level 3 Diagnoses Cellulitis of left lower leg L03.116 CHF (congestive heart failure) I50.9 Heart failure chronicity: unspecified Heart failure type: unspecified CAD in [place] artery I25.10 Hypertension I10 Hyperlipidemia E78.5 Time Spent (min) 55 (1) CHF (congestive heart failure) Heart failure chronicity: unspecified Heart failure type: unspecified Qualified Code(s): I50.9 - Heart failure, unspecified
[2020-11-23] MEDS ORDERED: VANCOMYCIN CONSULT ACTIVE PRN (16:41)
[2020-11-23] MEDS ORDERED: VANCOMYCIN HCL 2,250 MG in SODIUM CHLORIDE 0.9% 500 ML IV ONE (16:41)
[2020-11-23] MEDS ORDERED: MoRPHine SULFATE 2 MG/ML CARP IV PRN (18:37)
[2020-11-23] MEDS ORDERED: ZOLPIDEM TARTRATE 5 MG TAB PO PRN (18:37)
[2020-11-23] MEDS ORDERED: NITROGLYCERIN SL 0.4 MG/TAB TAB SL PRN (18:37)
[2020-11-23] MEDS ORDERED: ALUMINUM/MAGNESIUM SUSP 30 ML UDC PO PRN (18:37)
[2020-11-23] MEDS ORDERED: ONDANSETRON INJ 2 MG/ML 2 ML VIAL IV PRN (18:37)
[2020-11-23] MEDS ORDERED: POLYETHYLENE (MIRALAX) 17 GM PACK PO PRN (18:37)
[2020-11-23] MEDS ORDERED: MAGNESIUM HYDROXIDE SUSP 30 ML UDC PO PRN (18:37)
[2020-11-23] MEDS: ceFAZolin 2000MG 2,000 MG/15 ML SYR IV SCH (20:53)
[2020-11-23] MEDS: ENOXAPARIN INJ 40 MG/0.4 ML SYR SQ SCH (20:54)
[2020-11-24] MEDS: ceFAZolin 2000MG 2,000 MG/15 ML SYR IV SCH ×3 (04:52→20:16)
[2020-11-24 06:03] LABS: Basophils # (auto) 0.02 K/uL (0-0.2); Basophils % (auto) 0.1 %; Eosinophils # (auto) 0.01 K/uL (0-0.5); Eosinophils % (auto) 0.1 %; Hematocrit (blood only) 38.9 % (42-52); Hemoglobin 13.4 g/dL (14.0-18.0); Immature Granulocytes # (auto) 0.03 K/uL (0.00-0.02); Immature Granulocytes % (auto) 0.2 %; Lymphocytes # (auto) 0.76 K/uL (1.2-3.4); Lymphocytes % (auto) 4.1 %; Mean Corpuscular Hgb Conc 34.4 g/dL (32-36); Mean Corpuscular Volume 98.7 fL (80-100); Mean Platelet Volume 10.8 fL (7.4-10.4); Monocytes # (auto) 1.08 K/uL (0.11-0.59); Monocytes % (auto) 5.8 %; Neutrophils # (auto) 16.75 K/uL (1.4-6.5); Neutrophils % (auto) 89.7 %; Platelet Count 158 K/uL (130-400); RDW Coefficient of Variation 14.1 % (11.5-14.5); RDW Standard Deviation 51.1 fL (36.4-46.3); Red Blood Count 3.94 M/uL (4.7-6.1); White Blood Count 18.65 K/uL (4.8-10.8)
[2020-11-24 06:36] LABS: Calcium 8.2 mg/dl (8.5-10.1); Creatinine Clr Calc Pharmacy 38.4 ml/min; Est GFR (African American) 41.4 ml/min; Est GFR (Non-African American) 35.7 ml/min; Potassium 3.3 mmol/L (3.5-5.1)
[2020-11-24] MEDS: ENOXAPARIN INJ 40 MG/0.4 ML SYR SQ SCH (09:01)
[2020-11-24] MEDS: ASPIRIN 81 MG ECTAB PO SCH (09:02)
[2020-11-24] MEDS: METOPROLOL SUCC 25MG EXT REL TAB PO SCH (09:02)
[2020-11-24] MEDS: TORSEMIDE 10 MG TAB PO SCH (09:02)
[2020-11-24] MEDS: ATORVASTATIN 40 MG TAB PO SCH (09:02)
--- NOTE | 2020-11-24 10:41 | Ultrasound Report ---
LEFT LOWER EXTREMITY VENOUS DOPPLER HISTORY: Left leg swelling. COMPARISON STUDY: None. FINDINGS: There is normal compressibility, flow, and augmentation within the left lower extremity agusto p venous system. IMPRESSION: No DVT within the left lower extremity. ACT 112: Negative or not required by law. Electronically signed by: Augie Deal M.D. 11/24/2020 10:39 AM
--- NOTE | 2020-11-24 18:08 | Hospitalist Progress Note ---
Date of Service November 24, 2020 Assessment & Plan (1) Cellulitis of left lower leg: Strep growing on 1/2 blood cultures. On cefazolin which should adequately cover this although may be contaminant given increased WBC but for now will assume this is causing his cellulitis unless getting worse. US venous doppler negative for DVT Given difficulty in controlling infection previously on right leg will consult infectious disease as suspect he will need prolonged course of antibiotics I do not suspect SSTS at this time and from discussion with him and his this is not consistent with his prior hospitalization therefore will defer clindamycin at this time. (2) CHF (congestive heart failure): No acute exacerbation. Continue torsemide 10mg PO daily (3) CAD in [place] artery: Continue ASA, metoprolol, atorvastatin (4) Hypertension: BP adequately controlled. Continue metoprolol succinate and torsemide home dosing. (5) Hyperlipidemia: Continue atorvastatin Admission and Anticipated Discharge Date Admission Date: November 23, 2020 Subjective Rapidly expanding erythema on admission. Erythema mostly at drawn border from yesterday but largely increased since first drawn area in the ER. No ankle e ffusion or pain on movement. Able to walk on leg without pain. Reviewed prior hospitalization for right leg cellulitis requiring broad spectrum antibiotics. No culture was positive at that time. Reoccurred despite 6 days of IV vanc/zosyn and appropriate PO antibiotics on discharge. Required [place] injections ultimately in the ER and was managed by infectious disease. Reports rapid spread to the top of his leg on that occasion. Updated at bedside who reports he spends a lot of his time without sock/shoes on and does a lot of wood cutting so if injuring his shins often. Review of Systems Review of Systems: All systems reviewed & are unremarkable except as noted in HPI & below Physical Exam Constitutional: WD/WN, vitals as above Eyes: + anicteric sclerae; normal pupil size ENMT: external ear and nose normal, oropharynx normal Neck: trachea midline, no thyromegaly Respiratory: normal respiratory effort, lungs clear to auscultation Cardiovascular: Rate/Rhythm: regular rate and regular rhythm Heart Sounds: no murmur Vessels: no JVD Extremities: normal capillary refill, + calf tenderness (left) and + pedal edema (1+ pitting b/l to knees) Gastrointestinal (Abdomen): normal bowel sounds, soft, nontender, no hepatosplenomegaly Musculoskeletal: no cyanosis or clubbing, extremities motor strength 5/5 Skin: + erythema (left from toes to knee (not significantly progressed from area marked)) Neurologic: moves all extremities and awake; not confused Psychiatric: A+Ox3, euthymic affect Results & Data Results & Data ([facility]) Vital Signs (Past 12 Hours) Vital Signs Temp Pulse Pulse Resp BP Pulse Ox 11/24/20 17:03 56 L 11/24/20 15:06 36.5 C 53 L 18 142/65 H 96 11/24/20 11:25 36.7 C 51 L 18 131/66 95 11/24/20 07:32 36.6 C 54 L 18 131/65 94 11/24/20 07:28 57 L PG Care Time/CCT Total # of Minutes Spent Total Time Spent with Patient: Total time spent is greater than 50% in coor dination of care (as documented) at patient's floor/unit and/or counseling patient: Coding Level of Care Code 96128 Subseq Hosp Care Lvl 2 Diagnoses Cellulitis of left lower leg L03.116 CHF (congestive heart failure) I50.9 Heart failure chronicity: unspecified Heart failure type: unspecified CAD in [place] artery I25.10 Hypertension I10 Hyperlipidemia E78.5 (1) CHF (congestive heart failure) Heart failure chronicity: unspecified Heart failure type: unspecified Qualified Code(s): I50.9 - Heart failure, unspecified
[2020-11-24] MEDS: ACETAMINOPHEN 325 MG TAB PO PRN (20:15)
[2020-11-25] MEDS: ceFAZolin 2000MG 2,000 MG/15 ML SYR IV SCH (05:02)
[2020-11-25] MEDS ORDERED: VANCOMYCIN CONSULT ACTIVE PRN ×2 (06:49)
--- NOTE | 2020-11-25 06:57 | Communication Note ---
Date of Service: November 25, 2020 Called to bedside by staff for concerns of worsening cellulitis on checks this morning. Was demarcated at start of shift, however this AM with increased warmth and slight tenderness and expansion outside of demarcated margins. Notable expansion of erythema and warmth along posterior thigh, with additional expansion along anterior and superior lines of demarcation. On review of chart, patient on Ancef Q8h. Added Vancomycin for additional coverage of potential MRSA contributions to cellulitis. Resident Activity Tracking Resident Involvement: Resident Care Provided Care Provided: [facility]
[2020-11-25] MEDS ORDERED: VANCOMYCIN HCL 1,000 MG in SODIUM CHLORIDE 0.9% 250 ML IV SCH (07:00)
[2020-11-25] MEDS ORDERED: VANCOMYCIN HCL 2,000 MG in SODIUM CHLORIDE 0.9% 500 ML IV SCH (07:15)
[2020-11-25 07:23] LABS: Basophils # (auto) 0.01 K/uL (0-0.2); Basophils % (auto) 0.1 %; Eosinophils # (auto) 0.06 K/uL (0-0.5); Eosinophils % (auto) 0.5 %; Hematocrit (blood only) 40.1 % (42-52); Hemoglobin 13.6 g/dL (14.0-18.0); Immature Granulocytes # (auto) 0.02 K/uL (0.00-0.02); Immature Granulocytes % (auto) 0.2 %; Lymphocytes # (auto) 0.61 K/uL (1.2-3.4); Lymphocytes % (auto) 4.6 %; Mean Corpuscular Hemoglobin 33.2 pg (25-34); Mean Corpuscular Hgb Conc 33.9 g/dL (32-36); Mean Corpuscular Volume 97.8 fL (80-100); Mean Platelet Volume 11.3 fL (7.4-10.4); Monocytes # (auto) 0.95 K/uL (0.11-0.59); Monocytes % (auto) 7.2 %; Neutrophils # (auto) 11.53 K/uL (1.4-6.5); Neutrophils % (auto) 87.4 %; Platelet Count 151 K/uL (130-400); RDW Coefficient of Variation 14.3 % (11.5-14.5); RDW Standard Deviation 51.1 fL (36.4-46.3); White Blood Count 13.18 K/uL (4.8-10.8)
[2020-11-25] MEDS ORDERED: VANCOMYCIN HCL 1,750 MG in SODIUM CHLORIDE 0.9% 500 ML IV SCH (07:30)
[2020-11-25 07:34] LABS: Partial Thromboplastin Ratio 1.2; Partial Thromboplastin Time 32.4 Seconds (21.0-31.0)
[2020-11-25 07:50] LABS: Albumin Level 2.7 gm/dl (3.4-5.0); BUN Creatinine Ratio 19.7 (10-20); Calcium 8.5 mg/dl (8.5-10.1); Creatinine Clr Calc Pharmacy 41.3 ml/min; Est GFR (African American) 47.7 ml/min; Est GFR (Non-African American) 41.2 ml/min; Potassium 3.4 mmol/L (3.5-5.1)
[2020-11-25 07:52] LABS: Albumin Globulin Ratio 0.8 (0.9-2); Bilirubin,Total 1.4 mg/dl (0.2-1); Globulin 3.6 gm/dl (2.5-4.0); Total Protein 6.3 gm/dl (6.4-8.2)
[2020-11-25] MEDS: ATORVASTATIN 40 MG TAB PO SCH (07:57)
[2020-11-25] MEDS: METOPROLOL SUCC 25MG EXT REL TAB PO SCH (07:57)
[2020-11-25] MEDS: ASPIRIN 81 MG ECTAB PO SCH (07:57)
[2020-11-25] MEDS: TORSEMIDE 10 MG TAB PO SCH (07:58)
[2020-11-25] MEDS: ENOXAPARIN INJ 40 MG/0.4 ML SYR SQ SCH (07:58)
[2020-11-25] MEDS ORDERED: POTASSIUM CHLORIDE CRTAB 20 MEQ TABCR PO STA (10:26)
[2020-11-25] MEDS: ADVANCED PROBIOTIC 1250 MG CAPSULE PO SCH (11:14)
[2020-11-25] MEDS: cefTRIAXone SODIUM 2,000 MG in DEXTROSE 5% 50 ML IV SCH (12:33)
--- NOTE | 2020-11-25 15:10 | Pharmacy Report ---
Pharmacy Abx Initial Consult - Date of Service November 25, 2020 - Pharmacy Dosing Scope Date of Consult: 11/25/20 Consultation requested by: Dr. Craig Jones Pharmacy is consulted to initiate Vancomycin IV dosing therapy, order appropriate labs and adjust drug dose/frequency. - Subjective The patient is a 85 year old M admitted on 11/24/20 14:14. - Objective Height: 5 ft 8 in Weight: 102.6 kg (BMI 34.4) Vital Signs (Past 12hrs): Vital Signs Temp Pulse Pulse Resp BP BP Pulse Ox 11/25/20 11:01 36.7 C 54 L 18 147/71 H 98 11/25/20 09:18 60 11/25/20 08:00 62 11/25/20 07:58 36.7 C 59 L 18 160/71 H 92 Lab Results (24hrs): Laboratory Tests (24 Hours) 11/25/20 11/25/20 06:39 06:39 WBC 13.18 H Neut # (Auto) 11.53 H Creatinine 1.52 H Est Cr Clr Drug Dosing 41.3 - Risk Factors for Resistance * Antimicrobial use within the last 90 days Cefazolin - Assessment & Plan Assessment 85 year old M presents to ER complaining of rigors and chills secondary to LLE cellulitis. Received Vancomcyin in ER on 11/23, but upon admission was changed to Cefazolin 2gm IV q8h. Today cellulitis worsened. Notable expansion of erythema and warmth along posterior thigh, with additional expansion along anterior and superior lines of demarcation. Vancomycin added. Plan Vancomyin for treatment of worsening cellulitis Vancomycin IV * Estimated PK Parameters: Vd 0.61 L/kg, Vince 0.039 hr-1, t1/2 17.7 hr * Loading dose: 1750 mg (17 mg/kg) * Maintenance dose: 1500 mg IV (14.6 mg/kg) every 20 hours * Goal trough level : ~15 mcg/mL * Trough level ordered for 11/27/20 * A less than traditional dose and/or extended dosing interval has/have been selected due to likelihood of drug accumulation in obese patient/patient with h/o CKD. Ceftriaxone IV * 2gm IV q24h. Pharmacy will continue to follow and will adjust dose/frequency as necessary. Thank you.
--- NOTE | 2020-11-25 19:23 | Hospitalist Progress Note ---
Date of Service November 25, 2020 Assessment & Plan (1) Streptococcal bacteremia: 1/4 blood cultures + for group G strep at time of admission. source - LLE cellulitis. change ancef to rocephin. vanco added overnight, but suspect we can d/c this. the tracking of the left thigh is lymphangitic spread and should improve in the next 1-2 days. repeat blood cx's to ensure test of cure. echo to r/o SBE but strep is not a typical SBE offender. repeat CBC in am. (2) Cellulitis of left lower leg: likely 2nd to group G strep as this was isolated from his admission blood cultures. there is no evidence of draining abscess or purulence making staph infection much less likely. IV vanco added overnight but suspect he will not need MRSA coverage. change ancef to rocephin. serial exams. (3) CHF (congestive heart failure): Euvolemic. Cont toprol xl daily. Cont torsemide 10mg PO daily. (4) CAD in [place] artery: Continue ASA, metoprolol, atorvastatin No evidence of ACS or ischemic symptoms at this time (5) Hypertension: BPs have risen the last 24 hours. If they continue to be high then adjust meds. (6) Hyperlipidemia: Continue atorvastatin (7) VICTORINO (acute kidney injury): baseline Cr 1.4 to 1.5 peak 1.7 repeat BMP am likely due to bacteremia/sepsis (8) DVT prophylaxis: lovenox 40mg daily elevate LLE while in bed extensively updated at bedside Admission and Anticipated Discharge Date Admission Date: November 24, 2020 Subjective patient playing cards w/ during the visit states he feels much better overall in comparison to when he came to hospital no fevers or chills eating well pain in left leg MUCH improved overnight resident physician did not tracking of erythema up the medial thigh thus vanco was ordered Review of Systems Constitutional: no fever, no chills, no body aches, no fatigue, no weakness and no anorexia Respiratory: no cough and no dyspnea Cardiovascular: no chest pain Gastrointestinal: no nausea, no vomiting and no diarrhea/loose stools Physical Exam Constitutional: well developed and well nourished; no acute distress and no altered mental status ENMT: external ear and nose normal, oropharynx normal Respiratory: no respiratory distress Auscultation: lungs clear to auscultation bilaterally Cardiovascular: Rate/Rhythm: regular rate and regular rhythm Heart Sounds: normal S1 and normal S2 Vessels: posterior tibial pulses present and dorsalis pedis pulses present; no JVD Extremities: + edema (2+ left foot and left leg; <1+ on right) Gastrointestinal (Abdomen): normal bowel sounds, soft, nontender, no hepatosplenomegaly Skin: diffuse erythema of left leg - extends from dorsum of left foot proximally to the knee; there are several demarkation lines drawn on the plata. there is erythema tracking along the course of the medial lymphatic system of the thigh; the tracking stops at the groin. Psychiatric: A+Ox3, euthymic affect Results & Data Results & Data ([facility]) Vital Signs (Past 12 Hours) Vital Signs Temp Pulse Pulse Resp BP BP Pulse Ox 11/25/20 15:24 36.4 C L 55 L 18 168/75 H 94 11/25/20 11:01 36.7 C 54 L 18 147/71 H 98 11/25/20 09:18 60 11/25/20 08:00 62 11/25/20 07:58 36.7 C 59 L 18 160/71 H 92 Laboratory Results Laboratory Results - last 24 hr 11/25/20 11/25/20 11/25/20 06:39 06:39 06:39 WBC 13.18 H RBC 4.10 L Hgb 13.6 L Hct 40.1 L MCV 97.8 MCH 33.2 MCHC 33.9 RDW Std Deviation 51.1 H RDW Coeff of Anjelica 14.3 Plt Count 151 MPV 11.3 H Immature Gran % (Auto) 0.2 Neut % (Auto) 87.4 Lymph % (Auto) 4.6 [place] % (Auto) 7.2 Eos % (Auto) 0.5 Baso % (Auto) 0.1 Neut # (Auto) 11.53 H Lymph # (Auto) 0.61 L [place] # (Auto) 0.95 H Eos # (Auto) 0.06 Baso # (Auto) 0.01 Immature Gran # (Auto) 0.02 PT 10.0 INR 1.0 APTT 32.4 H PTT Ratio 1.2 Sodium 139 Potassium 3.4 L Chloride 105 Carbon Dioxide 28 Anion Gap 6.0 BUN 30 H Creatinine 1.52 H Est Cr Clr Drug Dosing 41.3 Est GFR ( Amer) 47.7 Est GFR (Non-Af Amer) 41.2 BUN/Creatinine Ratio 19.7 Glucose 109 H Calcium 8.5 Total Bilirubin 1.4 H AST 17 ALT 16 Alkaline Phosphatase 112 Total Protein 6.3 L Albumin 2.7 L Globulin 3.6 Albumin/Globulin Ratio 0.8 L 1/4 blood cultures from admission + for group G strep PG Care Time/CCT Total # of Minutes Spent Total Time Spent with Patient: Total time spent is greater than 50% in coordination of care (as documented) at patient's floor/unit and/or counseling patient: Coding Level of Care Code 98074 Subseq Hosp Care Lvl 2 Diagnoses Streptococcal bacteremia R78.81; B95.5 Cellulitis of left lower leg L03.116 CHF (congestive heart failure) I50.9 Heart failure chronicity: unspecified Heart failure type: unspecified CAD in [place] artery I25.10 Hypertension I10 Hyperlipidemia E78.5 VICTORINO (acute kidney injury) N17.9 DVT prophylaxis Z29.9 (1) CHF (congestive heart failure) Heart failure chronicity: unspecified Heart failure type: unspecified Qualified Code(s): I50.9 - Heart failure, unspecified
[2020-11-26] MEDS: VANCOMYCIN HCL 1,500 MG in SODIUM CHLORIDE 0.9% 500 ML IV SCH (04:34)
[2020-11-26 06:56] LABS: Basophils # (auto) 0.01 K/uL (0-0.2); Basophils % (auto) 0.1 %; Eosinophils # (auto) 0.14 K/uL (0-0.5); Eosinophils % (auto) 1.4 %; Hematocrit (blood only) 39.1 % (42-52); Hemoglobin 13.2 g/dL (14.0-18.0); Immature Granulocytes # (auto) 0.01 K/uL (0.00-0.02); Immature Granulocytes % (auto) 0.1 %; Lymphocytes # (auto) 0.95 K/uL (1.2-3.4); Lymphocytes % (auto) 9.8 %; Mean Corpuscular Hemoglobin 32.8 pg (25-34); Mean Corpuscular Hgb Conc 33.8 g/dL (32-36); Mean Corpuscular Volume 97.3 fL (80-100); Monocytes # (auto) 0.98 K/uL (0.11-0.59); Monocytes % (auto) 10.1 %; Neutrophils # (auto) 7.65 K/uL (1.4-6.5); Neutrophils % (auto) 78.5 %; Platelet Count 149 K/uL (130-400); RDW Coefficient of Variation 14.1 % (11.5-14.5); RDW Standard Deviation 50.3 fL (36.4-46.3); Red Blood Count 4.02 M/uL (4.7-6.1); White Blood Count 9.74 K/uL (4.8-10.8)
[2020-11-26 07:25] LABS: BUN Creatinine Ratio 17.7 (10-20); Calcium 8.3 mg/dl (8.5-10.1); Est GFR (African American) 62.3 ml/min; Est GFR (Non-African American) 53.7 ml/min; Potassium 3.8 mmol/L (3.5-5.1)
[2020-11-26] MEDS: ASPIRIN 81 MG ECTAB PO SCH (07:37)
[2020-11-26] MEDS: ATORVASTATIN 40 MG TAB PO SCH (07:37)
[2020-11-26] MEDS: ADVANCED PROBIOTIC 1250 MG CAPSULE PO SCH (07:37)
[2020-11-26] MEDS: METOPROLOL SUCC 25MG EXT REL TAB PO SCH ×2 (07:38→09:23)
[2020-11-26] MEDS: TORSEMIDE 10 MG TAB PO SCH (07:38)
[2020-11-26] MEDS: ENOXAPARIN INJ 40 MG/0.4 ML SYR SQ SCH (07:42)
[2020-11-26] MEDS: cefTRIAXone SODIUM 2,000 MG in DEXTROSE 5% 50 ML IV SCH (08:00)
[2020-11-26] MEDS ORDERED: TORSEMIDE 10 MG TAB PO STA (17:04)
--- NOTE | 2020-11-26 19:41 | CT Scan Report ---
CT SCAN OF THE LEFT TIBIA AND FIBULA WITHOUT IV CONTRAST CLINICAL HISTORY: Left leg swelling and erythema. COMPARISON STUDY: No priors. TECHNIQUE: CT scan of the left tibia and fibula is performed from the distal femur to the ankle joint . Images are reviewed in the axial, sagittal, and coronal planes. IV contrast was not administered fo r this examination. A dose lowering technique was utilized adhering to the principles of ALARA. Note that interpretation is suboptimal without plain correlate. CT DOSE: 387.30 mGy.cm FINDINGS: The skeletal structures are osteopenic. There is no evidence of left tibial or fibular frac ture. There is no bony erosion or periostitis. The knee and ankle joints are grossly maintained. Arth ritic change is seen in the hindfoot. No soft tissue gas is identified throughout the left lower extr emity. There is advanced atherosclerotic calcification of the regional arteries. There is diffuse sub cutaneous soft tissue edema and fluid seen throughout the left lower extremity. There is no evidence of organized fluid collection on this unenhanced examination. The Achilles tendon is intact as visual ized. The regional musculature is atrophic. Question chronic posttraumatic deformity of the calcaneus . IMPRESSION: 1. No acute bony abnormality is seen in the left tibia or fibula. 2. No soft tissue gas is identified. 3. Diffuse soft tissue edema and subcutaneous fluid is identified throughout the left lower extremity . Correlate clinically for evidence of cellulitis. 4. There is no organized fluid collection to suggest abscess on this unenhanced examination. ACT 112: Negative or not required by law. Electronically signed by: Luis Helton M.D. 11/26/2020 7:40 PM
--- NOTE | 2020-11-26 21:29 | Hospitalist Progress Note ---
Date of Service November 26, 2020 Assessment & Plan (1) Streptococcal bacteremia: 1/ blood cultures + for group G strep at time of admission. source - LLE cellulitis. day #2 IV rocephin. vanco added Friday pm due to concern of clinical worsening. the tracking of the left thigh is lymphangitic spread and should improve soon. I do agree with the patient that the erythema today looks worse. however, all other indicators suggest clinical improvement - good appetite, no fevers/chills, normal wbc count today, etc. the edema of LLE likely making the appearance worse and the improvement delayed in response. ELEVATE LLE. try an extra dose of torsemide today. CT of left tib-fib - rule out gasforming organism; rule out nec fasc; rule out abscess. will leave rocephin/vanco for now. will contact [facility] in am as well for additional assistance. repeat blood cx's to ensure test of cure thus far negative. echo w/o signs of SBE. repeat CBC in am. check a baseline Crp. (2) Cellulitis of left lower lend to group G strep as this was isolated from his admission blood cultures. there is no evidence of draining abscess or purulence making staph infection much less likely. IV vanco added Friday pm, however, due to clinical worsening. suspect he will not need MRSA coverage however at discharge. see above in "bacteremia." (3) CHF (congestive heart failure): Euvolemic. Cont toprol xl daily. Cont torsemide 10mg PO daily. Give extra dose to help hasten removal of edema. (4) CAD in [place] artery: Continue ASA, metoprolol, atorvastatin No evidence of ACS or ischemic symptoms at this time (5) Hypertension: BPs are elevated. Extra torsemide may help. (6) Hyperlipidemia: Continue atorvastatin (7) VICTORINO (acute kidney injury): baseline Cr 1.4 to 1.5 peak 1.7 resolved Cr today 1.2 repeat BMP am likely due to bacteremia/sepsis (8) DVT prophylaxis: lovenox 40mg daily elevate LLE while in bed extensively updated at bedside once again today Admission and Anticipated Discharge Date Admission Date: November 24, 2020 Subjective tele normal overnight other than edema and mild discomfort of LLE he feels well good appetite no chills or fever no cp, dyspnea, abd pain no diarrhea feels that the leg is worse today at bedside during the visit Review of Systems Constitutional: no fever, no chills, no fatigue and no anorexia Respiratory: no cough and no dyspnea Cardiovascular: no chest pain Gastrointestinal: no abdominal pain, no nausea and no vomiting Physical Exam Constitutional: well developed and well nourished; no acute distress and no altered mental status ENMT: external ear and nose normal, oropharynx normal Respiratory: no respiratory distress Auscultation: lungs clear to auscultation bilaterally Cardiovascular: Rate/Rhythm: regular rate and regular rhythm Heart Sounds: normal S1 and normal S2 Vessels: posterior tibial pulses present and dorsalis pedis pulses present; no JVD Extremities: + edema (2+ left foot and left leg up to the knee; slightly worse today; trace RLE) Gastrointestinal (Abdomen): normal bowel sounds, soft, nontender, no hepatosplenomegaly Skin: warm erythema extending from the left knee down to the foot; does look more intensely red today. no crepitus or pain with palpation. no superficial abscess or any drainage. there continues to be lymphangitic spread on the medial aspect of the left thigh that extends proximally to the left groin. shotty inguinal lymphadenopathy on left. Psychiatric: A+Ox3, euthymic affect Results & Data Results & Data ([facility]) Vital Signs (Past 12 Hours) Vital Signs Temp Pulse Pulse Pulse Resp BP BP 11/26/20 19:35 36.4 C L 56 L 18 131/74 11/26/20 15:42 36.4 C L 54 L 16 171/69 H 169/75 H 11/26/20 15:06 55 L 11/26/20 11:48 36.4 C L 51 L 18 146/73 H Pulse Ox 11/26/20 19:35 94 11/26/20 15:42 97 11/26/20 15:06 11/26/20 11:48 96 Laboratory Results Laboratory Results - last 24 hr 11/26/20 11/26/20 06:28 06:28 WBC 9.74 RBC 4.02 L Hgb 13.2 L Hct 39.1 L MCV 97.3 MCH 32.8 MCHC 33.8 RDW Std Deviation 50.3 H RDW Coeff of Anjelica 14.1 Plt Count 149 MPV 11.0 H Immature Gran % (Auto) 0.1 Neut % (Auto) 78.5 Lymph % (Auto) 9.8 [place] % (Auto) 10.1 Eos % (Auto) 1.4 Baso % (Auto) 0.1 Neut # (Auto) 7.65 H Lymph # (Auto) 0.95 L [place] # (Auto) 0.98 H Eos # (Auto) 0.14 Baso # (Auto) 0.01 Immature Gran # (Auto) 0.01 Sodium 140 Potassium 3.8 Chloride 109 H Carbon Dioxide 27 Anion Gap 4.0 BUN 22 H Creatinine 1.22 D Est Cr Clr Drug Dosing 51.0 Est GFR ( Amer) 62.3 Est GFR (Non-Af Amer) 53.7 BUN/Creatinine Ratio 17.7 Glucose 98 Calcium 8.3 L 1/4 blood cx's from admission + group G strep - pansensitive PG Care Time/CCT Total # of Minutes Spent Total Time Spent with Patient: Total time spent is greater than 50% in coordination of care (as documented) at patient's floor/unit and/or counseling patient: Coding Level of Care Code 59606 Subseq Hosp Care Lvl 2 Diagnoses Streptococcal bacteremia R78.81; B95.5 Cellulitis of left lower leg L03.116 CHF (congestive heart failure) I50.9 Heart failure chronicity: unspecified Heart failure type: unspecified CAD in [place] artery I25.10 Hypertension I10 Hyperlipidemia E78.5 VICTORINO (acute kidney injury) N17.9 DVT prophylaxis Z29.9 (1) CHF (congestive heart failure) Heart failure chronicity: unspecified Heart failure type: unspecified Qualified Code(s): I50.9 - Heart failure, unspecified
[2020-11-27] MEDS: VANCOMYCIN HCL 1,500 MG in SODIUM CHLORIDE 0.9% 500 ML IV SCH ×2 (00:13→20:41)
[2020-11-27] MEDS: ACETAMINOPHEN 325 MG TAB PO PRN (06:02)
[2020-11-27 06:54] LABS: Hematocrit (blood only) 39.8 % (42-52); Hemoglobin 13.1 g/dL (14.0-18.0); Mean Corpuscular Hemoglobin 32.7 pg (25-34); Mean Corpuscular Hgb Conc 32.9 g/dL (32-36); Mean Corpuscular Volume 99.3 fL (80-100); Mean Platelet Volume 10.7 fL (7.4-10.4); Platelet Count 191 K/uL (130-400); RDW Coefficient of Variation 13.9 % (11.5-14.5); RDW Standard Deviation 51.1 fL (36.4-46.3); Red Blood Count 4.01 M/uL (4.7-6.1); White Blood Count 9.05 K/uL (4.8-10.8)
[2020-11-27 07:31] LABS: BUN Creatinine Ratio 18.9 (10-20); Calcium 8.4 mg/dl (8.5-10.1); Creatinine Clr Calc Pharmacy 45.4 ml/min; Est GFR (African American) 54.1 ml/min; Est GFR (Non-African American) 46.7 ml/min; Potassium 3.8 mmol/L (3.5-5.1)
[2020-11-27 07:32] LABS: C Reactive Protein 9.24 mg/dl (0-0.29)
[2020-11-27] MEDS: TORSEMIDE 10 MG TAB PO SCH (09:12)
[2020-11-27] MEDS: METOPROLOL SUCC 25MG EXT REL TAB PO SCH (09:12)
[2020-11-27] MEDS: ASPIRIN 81 MG ECTAB PO SCH (09:12)
[2020-11-27] MEDS: ADVANCED PROBIOTIC 1250 MG CAPSULE PO SCH (09:12)
[2020-11-27] MEDS: ATORVASTATIN 40 MG TAB PO SCH (09:12)
[2020-11-27] MEDS: ENOXAPARIN INJ 40 MG/0.4 ML SYR SQ SCH (09:12)
[2020-11-27] MEDS: cefTRIAXone SODIUM 2,000 MG in DEXTROSE 5% 50 ML IV SCH (09:12)
[2020-11-27] MEDS ORDERED: FUROSEMIDE 20 MG in SYRINGE 0 ML IV ONE (11:30)
[2020-11-27] MEDS ORDERED: TORSEMIDE 10 MG TAB PO ONE ×2 (11:30→16:00)
[2020-11-27] MEDS ORDERED: POTASSIUM CHLORIDE CRTAB 20 MEQ TABCR PO ONE (16:00)
[2020-11-27] MEDS ORDERED: VANCOMYCIN TROUGH ONE (19:30)
--- NOTE | 2020-11-27 20:26 | Pharmacy Report ---
Pharmacy Abx Dose Short Note - Date of Service November 27, 2020 - Assessment & Plan Assessment 85 year old M receiving Vancomycin for treatment of cellulitis Day # 3 of antimicrobial therapy. Plan Laboratory Tests 11/27/20 19:21 Vancomycin Trough 14.9 Vancomycin * Trough level of 14.9 mcg/mL is therapeutic * Continue dose of 1500 mg IV every 20 hours * Goal trough level for cellulitis : ~15 mcg/mL Pharmacy will continue to follow and will adjust dose/frequency as necessary. Thank you.
--- NOTE | 2020-11-27 21:40 | Hospitalist Progress Note ---
Date of Service November 27, 2020 Assessment & Plan (1) Streptococcal bacteremia: / blood cultures + for group G strep at time of admission. source - LLE cellulitis. day #3 IV rocephin (prior to that had been on ancef). vanco added Friday pm due to concern of clinical worsening. However, MRSA involvement is not suspected. the tracking of the left thigh was lymphangitic spread and has resolved overnight. Despite the severity of the erythema over the weekend all clinical indicators have suggested he is improved (no fever, normalization of wbc count, etc). will leave rocephin/vanco for now but may be able to narrow tomorrow (perhaps back to Ancef tomorrow, d/c vanco, etc). I did indeed speak with [facility] by phone today - they, too, suggested narrowing of his IV abx as above. repeat blood cx's to date are negative. echo w/o signs of SBE. CBC is stable. (2) Cellulitis of left lower lend to group G strep as this was isolated from his admission blood cultures. there is no evidence of draining abscess or purulence making staph infection much less likely. IV vanco added Friday pm, however, due to clinical worsening. if he continues to improve overnight consider d/c vanco tomorrow and narrowing rocephin to ancef. re-eval tomorrow. (3) CHF (congestive heart failure): Euvolemic. Cont toprol xl daily. Cont torsemide 10mg PO daily. Gave extra doses of torsemide today to help hasten improvement of edema. (4) CAD in [place] artery: Continue ASA, metoprolol, atorvastatin No evidence of ACS or ischemic symptoms at this time (5) Hypertension: BPs are mildly elevated but would not change his usual meds at this time. follow. (6) Hyperlipidemia: Continue atorvastatin (7) VICTORINO (acute kidney injury): baseline Cr 1.4 to 1.5 peak 1.7 Cr today 1.3 VICTORINO resolved bmp in am tomorrow in light of torsemide usage today (8) Edema: LLE. Most of this is 2nd to his LLE cellulitis. However, he does report chronic edema as well. Try 2 extra doses of torsemide 10mg today in addition to scheduled 10mg qam. ELEVATE the leg as much as possible. no DVT on doppler at admission of LLE. CT tibfib reviewed. (9) DVT prophylaxis: lovenox 40mg daily elevate LLE frequently extensively updated at bedside Fri and Friday Admission and Anticipated Discharge Date Admission Date: November 24, 2020 Subjective patient c/o edema of LLE, worst in left foot difficult to get sock on, etc denies any worsening pain of LLE he has been propping the leg up when in bed as well as when he is sitting in chair eating well no fevers or chills tele wnl overnight feels good overall - just frustrated there hasn't been more improvement yet in appearance of LLE Review of Systems Constitutional: no fever, no chills, no fatigue and no anorexia Respiratory: no cough, no dyspnea and no dyspnea on exertion Cardiovascular: no chest pain Gastrointestinal: no diarrhea/loose stools Physical Exam Constitutional: well developed and well nourished; no acute distress and no altered mental status ENMT: external ear and nose normal, oropharynx normal Respiratory: no respiratory distress Auscultation: lungs clear to auscultation bilaterally Cardiovascular: Rate/Rhythm: regular rate and regular rhythm Heart Sounds: normal S1 and normal S2 Vessels: posterior tibial pulses present and dorsalis pedis pulses present; no JVD Extremities: + edema (2+ L foot & leg up to the knee; no change from prior exam; RLE trace) Gastrointestinal (Abdomen): normal bowel sounds, soft, nontender, no hepatosplenomegaly Skin: erythema of LLE extends from left foot dorsum to the knee. the erythema is LESS INTENSELY RED TODAY AND NOT WARM. THERE ARE AREAS ON THE [place] THAT ARE ACTUALLY WHITE IN COLOR SUGGESTING IMPROVED CELLULITIS. THE REDNESS DOES NOT EXTEND BEYOND SUPERIOR-MOST DEMARKATION LINE. THE LYMPHANGITIC SPREAD ON MEDIAL LEFT THIGH THAT TRAVELED TO LEFT GROIN IS RESOLVED TODAY. Psychiatric: A+Ox3, euthymic affect Results & Data Results & Data ([facility]) Vital Signs (Past 12 Hours) Vital Signs Temp Pulse Pulse Resp BP BP Pulse Ox 11/27/20 19:07 36.3 C L 59 L 18 144/68 H 95 11/27/20 15:24 36.5 C 59 L 16 160/76 H 95 11/27/20 14:49 54 L 11/27/20 11:44 36.4 C L 55 L 16 165/77 H 96 Laboratory Results Laboratory Results - last 24 hr 11/27/20 11/27/20 11/27/20 06:19 06:19 19:21 WBC 9.05 RBC 4.01 L Hgb 13.1 L Hct 39.8 L MCV 99.3 MCH 32.7 MCHC 32.9 RDW Std Deviation 51.1 H RDW Coeff of Anjelica 13.9 Plt Count 191 MPV 10.7 H Sodium 141 Potassium 3.8 Chloride 107 Carbon Dioxide 30 Anion Gap 4.0 BUN 26 H Creatinine 1.37 Est Cr Clr Drug Dosing 45.4 Est GFR ( Amer) 54.1 Est GFR (Non-Af Amer) 46.7 BUN/Creatinine Ratio 18.9 Glucose 94 Calcium 8.4 L C-Reactive Protein 9.24 H Vancomycin Trough 14.9 Diagnostic Findings Microbiology 11/26/20 06:28 Blood Aerobic Blood Culture - Preliminary No growth in Aerobic bottle after 24 hours. 11/26/20 06:28 Blood Anaerobic Blood Culture - Preliminary No growth in Anaerobic bottle after 24 hours. 11/26/20 06:37 Blood Aerobic Blood Culture - Preliminary No growth in Aerobic bottle after 24 hours. 11/26/20 06:37 Blood Anaerobic Blood Culture - Preliminary No growth in Anaerobic bottle after 24 hours. 11/23/20 17:14 Blood Aerobic Blood Culture - Preliminary Group G Beta Strep 11/23/20 17:14 Blood Anaerobic Blood Culture - Preliminary No growth in Anaerobic bottle after 48 hours. 11/23/20 17:09 Blood Aerobic Blood Culture - Preliminary No growth in Aerobic bottle after 48 hours. 11/23/20 17:09 Blood Anaerobic Blood Culture - Preliminary No growth in Anaerobic bottle after [address] left tib-fib - no gas, no abscess, no signs of nec fasc. Generalized swelling/edema c/w cellulitis. PG Care Time/CCT Total # of Minutes Spent Total Time Spent with Patient: Total time spent is greater than 50% in coordination of care (as documented) at patient's floor/unit and/or counseling patient: Coding Level of Care Code 20162 Subseq Hosp Care Lvl 3 Diagnoses Streptococcal bacteremia R78.81; B95.5 Cellulitis of left lower leg L03.116 CHF (congestive heart failure) I50.9 Heart failure chronicity: unspecified Heart failure type: unspecified CAD in [place] artery I25.10 Hypertension I10 Hyperlipidemia E78.5 VICTORINO (acute kidney injury) N17.9 Edema R60.9 DVT prophylaxis Z29.9 (1) CHF (congestive heart failure) Heart failure chronicity: unspecified Heart failure type: unspecified Qualified Code(s): I50.9 - Heart failure, unspecified
[2020-11-28 07:47] LABS: BUN Creatinine Ratio 23.3 (10-20); Calcium 8.4 mg/dl (8.5-10.1); Creatinine Clr Calc Pharmacy 46.8 ml/min; Est GFR (African American) 56.1 ml/min; Est GFR (Non-African American) 48.4 ml/min; Magnesium 2.1 mg/dl (1.8-2.4); Potassium 3.6 mmol/L (3.5-5.1)
[2020-11-28 07:49] LABS: C Reactive Protein 6.99 mg/dl (0-0.29)
[2020-11-28] MEDS ORDERED: POTASSIUM CHLORIDE CRTAB 20 MEQ TABCR PO STA (08:51)
[2020-11-28] MEDS ORDERED: FUROSEMIDE 20 MG in SYRINGE 0 ML IV ONE (08:51)
[2020-11-28] MEDS: ASPIRIN 81 MG ECTAB PO SCH (08:57)
[2020-11-28] MEDS: cefTRIAXone SODIUM 2,000 MG in DEXTROSE 5% 50 ML IV SCH (08:57)
[2020-11-28] MEDS: ATORVASTATIN 40 MG TAB PO SCH (08:57)
[2020-11-28] MEDS: ADVANCED PROBIOTIC 1250 MG CAPSULE PO SCH (08:58)
[2020-11-28] MEDS: TORSEMIDE 10 MG TAB PO SCH (08:58)
[2020-11-28] MEDS: METOPROLOL SUCC 25MG EXT REL TAB PO SCH (08:58)
[2020-11-28] MEDS: ENOXAPARIN INJ 40 MG/0.4 ML SYR SQ SCH (08:58)
[2020-11-28] MEDS ORDERED: ERGOCALCIFEROL 50,000 UNITS 1250 MCG CAP PO SCH (09:00)
[2020-11-28] MEDS ORDERED: FUROSEMIDE 40 MG/4 ML VIAL IV ONE (09:15)
[2020-11-28] MEDS ORDERED: TORSEMIDE 10 MG TAB PO ONE (16:30)
--- NOTE | 2020-11-28 19:21 | Hospitalist Progress Note ---
Date of Service November 28, 2020 Assessment & Plan (1) Streptococcal bacteremia: 1/ blood cultures + for group G strep at time of admission. source - LLE cellulitis. day #4 IV rocephin (prior to that had been on ancef). vanco added Friday pm due to concern of clinical worsening. However, MRSA involvement of LLE is not suspected. d/c vanco. appreciate [facility] [employer] consult today. they recommend d/c of IV rocephin today as well in addition to the vanco. change to amox 500mg TID x 10-12 days. will do so at this time. repeat blood cx's to date remain negative. echo w/o signs of SBE. (2) Cellulitis of left lower lend to group G strep as this was isolated from his admission blood cultures. there is no evidence of draining abscess or purulence making staph infection much less likely. IV vanco added Friday pm, however, due to clinical worsening. d/c IV vanco and rocephin. change to PO amox. compression stockings at discharge. extra diuretic today for edema. (3) CHF (congestive heart failure): Euvolemic. Cont toprol xl daily. Extra diuretic today for edema to promote faster resolution of cellulitis. (4) CAD in [place] artery: Continue ASA, metoprolol, atorvastatin No evidence of ACS or ischemic symptoms at this time (5) Hypertension: BPs are mildly elevated but would not change his usual meds at this time. follow. (6) Hyperlipidemia: Continue atorvastatin (7) VICTORINO (acute kidney injury): baseline Cr 1.4 to 1.5 peak 1.7 Cr again today 1.3 VICTORINO resolved bmp in am tomorrow in light of diuretics (8) Edema: LLE. Most of this is 2nd to his LLE cellulitis. However, he does report chronic edema as well. Probably has chronic venous insufficiency. Give lasix 20mg IV x 1 this am. ELEVATE the leg as much as possible. no DVT on doppler at admission of LLE. CT tibfib reviewed and no deeper infection. Compression stockings at d/c. (9) DVT prophylaxis: lovenox 40mg daily updated by phone today plan for d/c in am Admission and Anticipated Discharge Date Admission Date: November 24, 2020 Subjective patient feels well left leg edema modestly improved today no pain in leg today eating well no dyspnea had [facility] telehealth consult today Review of Systems Constitutional: no fever and no chills Respiratory: no cough, no dyspnea and no dyspnea on exertion Cardiovascular: no chest pain Gastrointestinal: no abdominal pain, no nausea, no vomiting and no diarrhea/loose stools Physical Exam Constitutional: well developed and well nourished; no acute distress and no altered mental status ENMT: external ear and nose normal, oropharynx normal Respiratory: no respiratory distress Auscultation: lungs clear to auscultation bilaterally Cardiovascular: Rate/Rhythm: regular rate and regular rhythm Heart Sounds: normal S1 and normal S2 Vessels: posterior tibial pulses present and dorsalis pedis pulses present; no JVD Extremities: + edema (scantly improved LLE today; 2+ to the knee; trace RLE ) Gastrointestinal (Abdomen): normal bowel sounds, soft, nontender, no hepatosplenomegaly Skin: erythema from L knee down to L foot again improved; no warmth; all redness receding from previously placed demarkation lines. no tracking above the knee as previous. no tenderness Psychiatric: A+Ox3, euthymic affect Results & Data Results & Data ([facility]) Vital Signs (Past 12 Hours) Vital Signs Temp Pulse Resp BP Pulse Ox 11/28/20 15:03 36.7 C 56 L 18 146/78 H 93 11/28/20 11:11 36.5 C 59 L 18 146/75 H 93 Laboratory Results Laboratory Results - last 24 hr 11/27/20 11/28/20 19:21 06:58 Sodium 140 Potassium 3.6 Chloride 106 Carbon Dioxide 28 Anion Gap 6.0 BUN 31 H Creatinine 1.33 Est Cr Clr Drug Dosing 46.8 Est GFR ( Amer) 56.1 Est GFR (Non-Af Amer) 48.4 BUN/Creatinine Ratio 23.3 H Glucose 98 Calcium 8.4 L Magnesium 2.1 C-Reactive Protein 6.99 H Vancomycin Trough 14.9 Diagnostic Findings Microbiology 11/26/20 06:28 Blood Aerobic Blood Culture - Preliminary No growth in Aerobic bottle after 48 hours. 11/26/20 06:28 Blood Anaerobic Blood Culture - Preliminary No growth in Anaerobic bottle after 48 hours. 11/26/20 06:37 Blood Aerobic Blood Culture - Preliminary No growth in Aerobic bottle after 48 hours. 11/26/20 06:37 Blood Anaerobic Blood Culture - Preliminary No growth in Anaerobic bottle after 48 hours. 11/23/20 17:14 Blood Aerobic Blood Culture - Preliminary Group G Beta Strep 11/23/20 17:14 Blood Anaerobic Blood Culture - Preliminary No growth in Anaerobic bottle after 48 hours. 11/23/20 17:09 Blood Aerobic Blood Culture - Preliminary No growth in Aerobic bottle after 48 hours. 11/23/20 17:09 Blood Anaerobic Blood Culture - Preliminary No growth in Anaerobic bottle after 48 hours. PG Care Time/CCT Total # of Minutes Spent Total Time Spent with Patient: Total time spent is greater than 50% in coordination of care (as documented) at patient's floor/unit and/or counseling patient: Coding Level of Care Code 59787 Subseq Hosp Care Lvl 2 Diagnoses Streptococcal bacteremia R78.81; B95.5 Cellulitis of left lower leg L03.116 CHF (congestive heart failure) I50.9 Heart failure chronicity: unspecified Heart failure type: unspecified CAD in [place] artery I25.10 Hypertension I10 Hyperlipidemia E78.5 VICTORINO (acute kidney injury) N17.9 Edema R60.9 DVT prophylaxis Z29.9 (1) CHF (congestive heart failure) Heart failure chronicity: unspecified Heart failure type: unspecified Qualified Code(s): I50.9 - Heart failure, unspecified
[2020-11-28] MEDS: AMOXICILLIN 500 MG CAP PO SCH (20:44)
[2020-11-29] MEDS: ENOXAPARIN INJ 40 MG/0.4 ML SYR SQ SCH (08:48)
[2020-11-29] MEDS: AMOXICILLIN 500 MG CAP PO SCH (08:48)
[2020-11-29] MEDS: ASPIRIN 81 MG ECTAB PO SCH (08:49)
[2020-11-29] MEDS: ADVANCED PROBIOTIC 1250 MG CAPSULE PO SCH (08:49)
[2020-11-29] MEDS: ATORVASTATIN 40 MG TAB PO SCH (08:49)
[2020-11-29] MEDS: METOPROLOL SUCC 25MG EXT REL TAB PO SCH (08:49)
[2020-11-29 09:19] LABS: BUN Creatinine Ratio 25.4 (10-20); Calcium 9.1 mg/dl (8.5-10.1); Est GFR (African American) 49.3 ml/min; Est GFR (Non-African American) 42.5 ml/min; Potassium 3.8 mmol/L (3.5-5.1)
--- NOTE | 2020-11-29 12:27 | Discharge Summary ---
Date of Service date of admission - November 24, 2020 date of discharge - November 29, 2020 Admission HPI Per Admitting Provider Mr. Lopez is an 85-year-old male with a history of [place] STEMI s/p PCI 09/21/2011, Hypertension, Dyslipidemia, Chronic Venous Insufficiency with Chronic Leg Edema, Osteoarthritis, Hyperparathyroidism and Stage 3 Chronic Kidney Disease who presents to [facility] ER today complaining of rigors and chills that began today while he was mowing his lawn. He felt like he could not get warm, so he stopped mowing, walked in the house to get a jacket. He was shaking uncontrollably by this time as his witnessed it. He may have felt mildly short of breath while this was going on, but he has not had any cough, rodriguez shortness of breath, sputum production, or any upper respiratory tract symptoms. Patient did not take his temperature so he does not know if he had a fever or not. He continued to experience rigors and chills, and began to feel wiped out. He decided to stop mowing, and come in for evaluation in the emergency room. Patient has a negative review of systems. He has not had any headache, stiff neck, nausea, vomiting, diarrhea, myalgias, or arthralgias. He has not had any recent exposures to COVID or other sick contacts. He denies any skin lesions, open areas on his legs, or ulcerations. He has not had any urinary frequency, urgency, or dysuria. His oral intake has been stable, and he is drinking plenty of fluids. Patient is compliant with his medications and has not had any adverse side effects. No recent changes in his medications. HISTORICAL BACKGROUND: On 09/21/2011, he developed angina at rest. He required defibrillation in route to the hospital for V-Fib arrest and also required defibrillation during Coronary Angiography. He underwent PCI with 2 bare metal stents for an occluded LAD with thrombus. He has had the following studies/procedures: 1. Cardiac Catheterization 09/21/2011: -- Prox LMCA 20%. Prox LAD 100%. Prox Cx 30%. Mid RCA 60%. -- LVEF 40% to 45%. Anterior wall hypokinesis. -- Aspiration thrombectomy to proximal LAD. -- Integrity 3 x 8 mm and 3 x 12 mm bare metal stents placed within the proximal LAD in overlapping fashion. -- Post dilated with 3.25 mm noncompliant balloon. 2. Dobutamine Stress Echo 10/21/2014: -- Negative for ischemia at 94% MPHR. EF 60%. No significant valvular abnormalities. 3. Echocardiogram 05/06/2019: -- Normal LV size, wall motion, systolic function. -- LVEF 65%-70%. No LVH. -- No significant valvular abnormalities. -- RVSP 31 mmHg. -- Hepatic cyst (noted on previous CT scan). Principal Diagnosis 1. LLE cellulitis 2. group g strep bacteremia Discharge Exam Constitutional well developed and well nourished; no acute distress and no altered mental status ENMT external ear and nose normal, oropharynx normal Respiratory no respiratory distress Auscultation: lungs clear to auscultation bilaterally Cardiovascular Rate/Rhythm: regular rate and regular rhythm Heart Sounds: normal S1 and normal S2 Vessels: posterior tibial pulses present and dorsalis pedis pulses present; no JVD Extremities: + edema (2-3+ LLE to the knee; trace RLE ) Gastrointestinal (Abdomen) normal bowel sounds, soft, nontender, no hepatosplenomegaly Skin resolving cellulitis of left foot and left plata to the knee; previous lymphangitic spread medial left thigh resolved; erythema is now light red/pink rather than intensively red; warmth much improved. background of venous stasis change left leg noted. Psychiatric A+Ox3, euthymic affect Discharge Data Allergies Allergy/AdvReac Type Severity Reaction Status Date / Time No Known Allergies Allergy Verified 12/04/20 11:27 Consultations [facility] Infectious Diseases - Telehealth Ordered Studies Chest X-Ray 11/23/20 12:49 SINGLE VIEW CHEST CLINICAL HISTORY: Dyspnea. FINDINGS: An AP, portable, upright chest radiograph is compared to chest x-ray and chest CT dated 10/30/2018. The examination is mildly degraded by portable technique and patient rotation. The heart is enlarged noting atherosclerotic calcification of the thoracic aorta. There is pulmonary vascular congestion. Atelectasis is seen at the lung bases. No large pleural effusion or pneumothorax is identified. The skeletal structures are osteopenic. The bony thorax is grossly intact. Degenerative change is noted in the shoulders and thoracic spine. IMPRESSION: Cardiomegaly with evidence of mild congestive failure. ACT 112: Negative or not required by law. Electronically signed by: Luis Helton M.D. 11/23/2020 1:46 PM Venous Doppler Study 11/24/20 10:30 LEFT LOWER EXTREMITY VENOUS DOPPLER HISTORY: Left leg swelling. COMPARISON STUDY: None. FINDINGS: There is normal compressibility, flow, and augmentation within the left lower extremity deep venous system. IMPRESSION: No DVT within the left lower extremity. ACT 112: Negative or not required by law. Electronically signed by: Augie Deal M.D. 11/24/2020 10:[address] 11/26/20 17:27 CT SCAN OF THE LEFT TIBIA AND FIBULA WITHOUT IV CONTRAST CLINICAL HISTORY: Left leg swelling and erythema. COMPARISON STUDY: No priors. TECHNIQUE: CT scan of the left tibia and fibula is performed from the distal femur to the ankle joint. Images are reviewed in the axial, sagittal, and coronal planes. IV contrast was not administered for this examination. A dose lowering technique was utilized adhering to the principles of ALARA. Note that interpretation is suboptimal without plain correlate. CT DOSE: 387.30 mGy.cm FINDINGS: The skeletal structures are osteopenic. There is no evidence of left tibial or fibular fracture. There is no bony erosion or periostitis. The knee and ankle joints are grossly maintained. Arthritic change is seen in the hindfoot. No soft tissue gas is identified throughout the left lower extremity. There is advanced atherosclerotic calcification of the regional arteries. There is diffuse subcutaneous soft tissue edema and fluid seen throughout the left lower extremity. There is no evidence of organized fluid collection on this unenhanced examination. The Achilles tendon is intact as visualized. The regional musculature is atrophic. Question chronic posttraumatic deformity of the calcaneus. IMPRESSION: 1. No acute bony abnormality is seen in the left tibia or fibula. 2. No soft tissue gas is identified. 3. Diffuse soft tissue edema and subcutaneous fluid is identified throughout the left lower extremity. Correlate clinically for evidence of cellulitis. 4. There is no organized fluid collection to suggest abscess on this unenhanced examination. ACT 112: Negative or not required by law. Electronically signed by: Luis Helton M.D. 11/26/2020 7:40 PM Echocardiogram - * preserved EF * no valvular vegetations Hospital Course (1) Streptococcal bacteremia: 07/03 blood cultures + for group G strep at time of admission. source - LLE cellulitis. Received ~5 days of IV rocephin and ancef before changing to oral amoxicillin on 11/28/20. Seen by [facility] Infectious disease. They recommended amoxicillin 500mg TID x 10-14 additional days. Repeat blood cx's to ensure test of cure were indeed negative. echo w/o signs of SBE. (2) Cellulitis of left lower lend to group G strep as this was isolated from his admission blood cultures. There was never evidence of draining abscess or purulence making staph infection much less likely. Initially received IV ancef, then changed to combination of IV rocephin with vancomycin. With the latter his LLE cellulitis improved. WBC count normalized, CRP improved, and clinically his leg improved. Changed to oral amoxicillin at discharge as noted above. He was asked to elevate the leg as much as possible at home, and to use compression stockings to help with his edema. (he likely has element of venous insufficiency) (3) VICTORINO (acute kidney injury): baseline Cr 1.4 to 1.5 peak 1.7 Cr 1.4 at discharge VICTORINO resolved VICTORINO likely 2nd to bacteremia/septicemia (4) Edema: LLE. Much of this is 2nd to his LLE cellulitis. However, he does report chronic edema as well. Probably has chronic venous insufficiency. NO DVT on doppler at time of admission. CT tib-fib LLE failed to show any deeper infection. He received multiple does of torsemide and lasix above and beyond his usual dose of oral torsemide. This helped marginally with his LE edema arguing that most of it is indeed chronic venous insufficiency related. At discharge he was advised to elevate the leg as much as possible, continue his torsemide, and wear compression stockings. (5) CAD in [place] artery: Continue ASA, metoprolol, atorvastatin. No evidence of ACS or ischemic symptoms while hospitalized. (6) Chronic diastolic CHF (congestive heart failure): Despite the LE edema he never otherwise appeared decompensated from CHF standpoint. (7) Hypertension: BPs were mildly elevated throughout his stay but his medications were left unchanged. He will cont metoprolol xl 25mg daily as well as torsemide 10mg daily. (8) Hyperlipidemia: Continue atorvastatin as previous. Total Time Total Time Spent Total Time Spent (In Minutes): 35 Total Time Includes: Examination of the Patient, Discharge Planning and Medication Reconciliation Discharge Plan Discharge Items Patient Disposition: Home - Self-Care Reason For Visit: Left Leg CELLULITIS Discharge Diagnosis: 1. Left Leg Cellulitis (skin infection) - due to strep infection - slowly resolving. 2. Bloodstream infection with strep - resolved. 3. Chronic edema of legs, worse on left - likely due to "venous insufficiency." Activity: Resume your previous activity Activity Comment: Do not dangle your legs for more than 45 min-1 hour at a time Non-emergency contact: Primary Care Provider Call non-emergency contact if: you have any medication questions, your symptoms worsen and you have a fever Follow-up/Referrals: Saadia Curtis MD [Primary Care Provider] - 12/04/20 11:30 am () Diet: Low Sodium (2gm) Addtl Attending Provider Instructions: Mr Lopez, You were treated for the problems listed above in "discharge diagnoses." The bloodstream infection caused by strep bacteria cleared with IV antibiotics. The strep was the likely cause of your left leg cellulitis. We performed a sonogram of your left leg which did not show a DVT blood clot. A CAT scan of the left leg did NOT show a deep infection, abscess, etc. An echocardiogram of your heart did NOT show infection of the heart valves. You were seen by the infectious disease doctor at [facility] through a "telehealth" consult. They have recommended amoxicillin by mouth to take at home for the residual infection. Your chronic leg edema is likely due to "venous insufficiency" (see handout). This is caused by worn-out valves in your veins which then makes it hard for the legs to keep fluid out. The best treatment for this is using compression stockings regularly. Water pills (diuretics, such as your torsemide) help with the fluid but can't remove it all. We gave you 2 extra days of diuretics and you still are having ongoing edema. Recommendations - 1. take amoxicillin 500mg three times daily for 14 days. This is your antibiotic. Take your first dose upon return home today. The cellulitis infection will likely take another week or so to fully resolve in its color/appearance. 2. take probiotics once daily for 14 days. This may help prevent diarrhea from your antibiotics. 3. use the TATE hose we gave you OR your own compression stockings on a daily basis at home. You can put them on in the morning each day and remove them later in the day. No need to sleep with them on. It is most important to wear them when you are doing a lot of walking, leaving your home, etc. 4. resume your torsemide when you arrive home today. 5. know that the redness will look worse if you are sitting for long periods of time and your legs are dangling. Propping the legs up on pillows when in your easy chair or in bed helps speed up the resolution of the redness, swelling, etc. 6. if your compression stockings are not comfortable ask Dr Curtis for a referral to a specialist who can custom fit them for you. Follow-up - see separate section RETURN TO [facility] IF - * you have fevers over 100 degrees * you develop shaking chills * you develop severe diarrhea * you have worsening redness that is tracking up the leg beyond the knee and the line that was drawn at the level of the knee * you have worsening pain in the left leg * any other concerns I enjoyed caring for you! Take good care, -Dr Callejas Pending Studies at Discharge: No Stand-Alone Forms: My [facility], Smoking Cessation Medications and DC Order Prescriptions: New amoxicillin 500 mg Capsule 500 mg PO TID 14 Days Qty: 42 RF: 0 Saccharomyces boulardii 250 mg capsule 250 mg PO DAILY 14 Days Qty: 14 RF: 0 Continued torsemide 10 mg tablet 10 mg PO DAILY Qty: 90 RF: 3 ergocalciferol (vitamin D2) 1,250 mcg (50,000 unit) capsule 1,250 mcg PO .COMPLEX Qty: 21 RF: 0 atorvastatin 80 mg tablet 40 mg PO QAM Qty: 45 RF: 3 metoprolol succinate 25 mg tablet extended release 24 hr 25 mg PO QAM Qty: 90 RF: 3 echinacea purpurea extract [echinacea] 125 mg Tablet 0 mg PO UD PRN (Reason: for preventrion of colds) RF: 0 aspirin [Aspirin Low Dose] 81 mg Tablet,Delayed Release (/Ec) 81 mg PO DAILY RF: 0 Discharge Orders: Discharge Order (Routine); Ordered 11/29/20 Ordered By: Umesh Young/Other Patient Handouts: CVI Admission Data Admit Date/Time: 11/24/20 14:14 Attending Provider: Umesh Callejas Admit Provider: Mt Javier Primary Care Provider: Saadia Curtis Providers: Mt Javier ; Isai Banks ; Rosa Maria Samson ; Darrell Carrizales I. ; Joesph Trinidad II ; Carmen Velazquez ; Tito Paris Other Interventions: Discharge Summary Assessment (RN) Last Done: 11/29/20 13:08 Coding Level of Care Code D/C Day Management >30 mins Diagnoses Streptococcal bacteremia R78.81; B95.5 Cellulitis of left lower leg L03.116 VICTORINO (acute kidney injury) N17.9 Edema R60.9 CAD in [place] artery I25.10 Chronic diastolic CHF (congestive heart failure) I50.32 Hypertension I10 Hyperlipidemia E78.5
[2020-11-30] MEDS ORDERED: ERGOCALCIFEROL 50,000 UNITS 1250 MCG CAP PO SCH (09:00)
== END 2020-11-29 13:45 | disposition home or self-care (01) | DRG 603 ==
LOC: 2W 12:35 → ED 12:35 → SUATTDRO 17:03 → 2W 18:00 → SUATTDRO 11-24 14:14

== ENCOUNTER 2020-12-11 09:13 | Observation (INO) ==
[2020-12-11] MEDS ORDERED: CEFEPIME 2,000 MG/20 ML VIAL IV STA (09:37)
--- NOTE | 2020-12-11 10:07 | XRay Report ---
XR chest 1V portable HISTORY: Left leg swelling. COMPARISON: 11/23/2020. FINDINGS: Cardiac silhouette is borderline enlarged. No focal lung consolidations to suggest pneumoni a. No evidence for pulmonary edema. No pleural effusions. No pneumothorax. Advanced degenerative schreiber ges again noted within the right shoulder. IMPRESSION: No evidence for pulmonary edema. ACT 112: Negative or not required by law. Electronically signed by: Augie Deal M.D. 12/11/2020 10:06 AM
[2020-12-11 10:10] LABS: Basophils # (auto) 0.02 K/uL (0-0.2); Basophils % (auto) 0.3 %; Eosinophils # (auto) 0.12 K/uL (0-0.5); Eosinophils % (auto) 1.5 %; Hemoglobin 13.9 g/dL (14.0-18.0); Immature Granulocytes # (auto) 0.03 K/uL (0.00-0.02); Immature Granulocytes % (auto) 0.4 %; Lymphocytes # (auto) 1.05 K/uL (1.2-3.4); Lymphocytes % (auto) 13.4 %; Mean Corpuscular Hgb Conc 33.9 g/dL (32-36); Mean Corpuscular Volume 97.4 fL (80-100); Mean Platelet Volume 10.3 fL (7.4-10.4); Monocytes # (auto) 0.84 K/uL (0.11-0.59); Monocytes % (auto) 10.7 %; Neutrophils % (auto) 73.7 %; Platelet Count 254 K/uL (130-400); RDW Coefficient of Variation 13.3 % (11.5-14.5); Red Blood Count 4.21 M/uL (4.7-6.1); White Blood Count 7.86 K/uL (4.8-10.8)
[2020-12-11 10:26] LABS: Alanine Aminotransferase 24 U/L (12-78); Albumin Level 3.2 gm/dl (3.4-5.0); Aspartate Aminotransferase 18 U/L (15-37); BUN Creatinine Ratio 14.3 (10-20); Blood Urea Nitrogen 20 mg/dl (7-18); Calcium 8.2 mg/dl (8.5-10.1); Carbon Dioxide 29 mmol/L (21-32); Chloride 105 mmol/L (98-107); Creatinine Clr Calc Pharmacy 44.9 ml/min; Est GFR (African American) 53.2 ml/min; Est GFR (Non-African American) 45.9 ml/min; Glucose 99 mg/dl (70-99); Sodium 140 mmol/L (136-145)
[2020-12-11 10:31] LABS: Albumin Globulin Ratio 0.8 (0.9-2); Alkaline Phosphatase 147 U/L (45-117); Bilirubin,Total 0.9 mg/dl (0.2-1); Globulin 3.9 gm/dl (2.5-4.0); NT Pro B Type Natriuretic Pept 192 pg/ml (0-1800); Total Protein 7.1 gm/dl (6.4-8.2); Troponin I < 0.015 ng/ml (0-0.045)
--- NOTE | 2020-12-11 10:48 | Ultrasound Report ---
LEFT LOWER EXTREMITY VENOUS DOPPLER CLINICAL HISTORY: Left leg swelling. COMPARISON STUDY: Left lower extremity venous Doppler ultrasound November 24, 2020. TECHNIQUE: Sonography of the deep venous system of the left lower extremity was performed. Compressi on and augmentation were evaluated. FINDINGS: The left common femoral, superficial femoral and popliteal veins were compressible. Augmen tation was normal. Flow was shown within the deep calf vessels. IMPRESSION: No evidence of deep venous thrombus within the left lower extremity. ACT 112: Negative or not required by law. Electronically signed by: Manish Lynn M.D. 12/11/2020 10:47 AM
--- NOTE | 2020-12-11 11:55 | History & Physical Report ---
Date of Service December 11, 2020 Assessment & Plan (1) Cellulitis of left lower leg: admitted 11/24 to 11/29 at [facility]. presumed pathogen of LLE cellulitis during that visit - group G strep, as this had grown in 1/4 blood culture bottles during that hospital stay. clinically improved with IV rocephin/vanco. seen by Teresa MELO telehealth - amoxicillin advised along with elevation & compression. d/c home on 14 day course of amoxicillin. by report the LLE cellulitis improved but never fully resolved. he has been diligent about wearing a compression hose, taking his torsemide, and elevating the leg. the Left Leg today indeed looks better in comparison to my last visit with him about 10-14 days ago; [id number] he has not had full clinical resolution. I am uncertain if he is not clearing this because of undiagnosed PAD, resistant pathogens, or gram negatives. we have adequately covered strep with PCN agents over the last 2+ weeks. he received dalvance this past Friday which will provide 1 week of MSSA and MRSA coverage. the only pathogens we are not covering are gram negatives. 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; again he received dalvance 3 days ago continue elevation continue diuretics will obtain another Teresa MELO consultation in am (2) Streptococcal bacteremia: group G strep, 1/4 bottles during previous admission repeat blood cx's 11/25 were negative has had 10+ days of effective Rx for group G strep between IV rocephin during the prior admission and po amoxicillin post-d/c no signs/symptoms of systemic infection today check sed rate/crp (3) Edema: cont torsemide no evidence of DVT LLE his weight is down considerably from last hospitalization, and his left foot edema is overall better (4) Chronic diastolic CHF (congestive heart failure): compensated (5) CAD in [place] artery: no ischemic symptoms at this time (6) Abnormal glucose: HbA1c 6.1% - c/w preDM. change diet to DM diet. should be fine with dietary control alone. could be contributing to refractoriness of his LLE cellulitis (7) Chronic kidney disease, stage 3 (moderate): Cr and CrCL today at baseline BMP am (8) Hyperlipidemia: statin (9) Hypertension: cont home meds (10) Tinea pedis: left foot - interdigital ketoconazole cream BID (11) DVT prophylaxis: lovenox daily updated at bedside place on observation status History of Present Illness Chief Complaint: LLE cellulitis Primary Care Provider: Saadia Curtis MD 85yo male with recent hospital admission for LLE cellulitis and group G strep bacteremia (11/24 to 11/29) - discharged home on amoxicillin - presents with worsening erythema and tenderness of LLE starting this past evening into Friday. States the erythema and edema of the LLE had improved since his hospitalization but never fully resolved. Had seen his PCP and it was felt things were slowly improving. However, the erythema worsened and on Friday he presented to our ER for e valuation. [place] to be a dalvance candidate and was given such, then d/c home. He still is taking the amoxicillin for his group G strep bacteremia. Despite the dalvance he has noted no clinical improvement. The LLE over the plata is still very erythematous and tender. Denies left knee or left ankle pain. His appetite is excellent, denies fever or chills, denies diarrhea, denies any COVID symptoms. Allergies Allergy/AdvReac Type Severity Reaction Status Date / Time No Known Allergies Allergy Verified 12/11/20 10:17 Home Medications Medication Instructions Recorded Confirmed Type aspirin [Aspirin Low Dose] 81 mg PO DAILY 10/30/18 12/11/20 History echinacea purpurea extract 0 mg PO UD PRN 12/29/18 12/11/20 History [echinacea] atorvastatin 80 mg tablet 40 mg PO QAM #45 tab 12/08/19 12/11/20 Rx metoprolol succinate 25 mg 25 mg PO QAM #90 tab 12/08/19 12/11/20 Rx tablet,extended release 24 hr torsemide 10 mg tablet 10 mg PO DAILY #90 tab 08/09/20 12/11/20 Rx ergocalciferol (vitamin D2) 1,250 1,250 mcg PO .COMPLEX #21 cap 11/02/20 Rx mcg (50,000 unit) capsule Saccharomyces boulardii 250 mg PO DAILY 14 Days #14 cap 11/29/20 12/11/20 Rx amoxicillin 500 mg PO TID 14 Days #42 cap 11/29/20 12/11/20 Rx Past Med/Surg History Medical History (Updated 12/12/20 @ 03:38 by Umesh Callejas) CAD in [place] artery Cellulitis of left lower leg Admitted 10/2020 [facility] Chronic kidney disease, stage 3 (moderate) Edema Fracture, humerus Hearing loss, bilateral History of MA (myocardial infarction) Hyperlipidemia Hyperparathyroidism Hypertension Kidney stones Osteoarthritis, multiple sites Pulmonary embolism (02/19/14) Vitamin D deficiency Surgical History History of knee replacement procedure of right knee S/P coronary artery stent placement Family History Aunt Breast cancer Mother Hypertension Kidney disease ESRD - did not go on dialysis Father Myocardial infarction Stroke Denies family history of Ovarian cancer Prostate cancer Diabetes Lung cancer Colorectal cancer Social History (Updated 12/11/20 @ 11:53 by Umesh Callejas) Smoking Status: Former smoker Tobacco Type: Cigarettes packs per day: 0.5; Years Smoked: 20; Smoking End Date: quit in his 30s; Second Hand Exposure: No; Hx Alcohol Use: No Hx Substance Use: No Preferred Language: Citizen Of [place] Communication Ability: Effective 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 Beliefs That Will Affect Care: None marital status: Current Living Situation: Spouse current occupational status: retired How many Children do You have: 4 How many Children do You have Comment: 2 are Other Information That Helps Us Care for You: No other: 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, 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 [id number] Feels Safe at Home: Yes Safety Concerns: Feels Safe At This Time Childhood Exposure to Second-Hand Smoke: No caffeine: Yes (coffee) Dental Care, Regularly: No Physical Activity Frequency: Does not Exercise Seatbelt Use: always Sunscreen Use: Yes Assistive Devices: Denture - Upper, Denture - Lower and Hearing Aid - Bilateral Assistive Devices Comment: partial dentures upper and lower Review of Systems Constitutional: no fever, no chills, no fatigue and no anorexia Eyes: no worsening vision Ear, Nose, Mouth, Throat: no nasal congestion, no sore throat and no dysphagia Respiratory: no cough and no dyspnea Cardiovascular: as per Subjective / HPI and + edema (LLE - using compression stockings; improved but ongoing); no chest pain Gastrointestinal: no abdominal pain and no diarrhea/loose stools Genitourinary: no dysuria Musculoskeletal: denies left knee pain or left ankle pain Integumentary: as per Subjective / HPI and + erythema Neurologic: no generalized weakness Psychiatric: no depression Endocrine: denies history of diabetes Hematologic / Lymphatic: no easy bleeding Physical Exam Constitutional: well developed and well nourished; no acute distress and no altered mental status Eyes: PERRL ENMT: external ear and nose normal, oropharynx normal Neck: trachea midline, no thyromegaly Respiratory: normal respiratory effort, lungs clear to auscultation Cardiovascular: Rate/Rhythm: regular rate and regular rhythm Heart Sounds: normal S1; no murmur Vessels: posterior tibial pulses present, dorsalis pedis pulses present and popliteal pulses present; no JVD Extremities: + edema (Trace RLE; 2+ LLE from foot to knee (edema better relative to prior exams)) Gastrointestinal (Abdomen): normal bowel sounds, soft, nontender, no hepatosplenomegaly Musculoskeletal: no cyanosis or clubbing, extremities motor strength 5/5 no synovitis of the left knee or left ankle Skin: warm erythema extending from tibial plateau region inferiorly to the foot; the worst erythema is over the left mid plata; tender to palpation over this region; the erythema is NOT as intensely red as during the previous hospitalization. there is tinea pedis in between all toes of the left foot; there is peeling of skin in the forefoot near the toes. there is no palpable abscess. no crepitus along the course of the leg. during previous hospitalization he had lymphangitic spread up the proximal medial thigh - this is not present today Neurologic: deep tendon reflexes 2+ bilaterally and moves all extremities Psychiatric: A+Ox3, euthymic affect Lymphatic: no cervical lymphadenopathy Results & Data Results & Data ([facility]) Vital Signs (Past 12 Hours) Vital Signs Temp Pulse Resp BP Pulse Ox 12/11/20 09:47 95 12/11/20 09:18 36.6 C 57 L 20 150/69 H 96 Laboratory Results Labs 12/11/20 12/11/20 12/11/20 10:00 10:00 10:00 WBC 7.86 RBC 4.21 L Hgb 13.9 L Hct 41.0 L MCV 97.4 MCH 33.0 MCHC 33.9 RDW Std Deviation 47.0 H RDW Coeff of Anjelica 13.3 Plt Count 254 MPV 10.3 Immature Gran % (Auto) 0.4 Neut % (Auto) 73.7 Lymph % (Auto) 13.4 [place] % (Auto) 10.7 Eos % (Auto) 1.5 Baso % (Auto) 0.3 Neut # (Auto) 5.80 Lymph # (Auto) 1.05 L [place] # (Auto) 0.84 H Eos # (Auto) 0.12 Baso # (Auto) 0.02 Immature Gran # (Auto) 0.03 H ESR Sodium 140 Potassium 4.0 Chloride 105 Carbon Dioxide 29 Anion Gap 6.0 BUN 20 H Creatinine 1.39 Est Cr Clr Drug Dosing 44.9 Est GFR ( Amer) 53.2 Est GFR (Non-Af Amer) 45.9 BUN/Creatinine Ratio 14.3 Glucose 99 Estimat Average Glucose Hemoglobin A1c Calcium 8.2 L Magnesium Total Bilirubin 0.9 AST 18 ALT 24 Alkaline Phosphatase 147 H Total Creatine Kinase Troponin I < 0.015 C-Reactive Protein NT-Pro-B Natriuret Pep 192 Total Protein 7.1 Albumin 3.2 L Globulin 3.9 Albumin/Globulin Ratio 0.8 L Nasal Screen MRSA (PCR) COVID-19 Eval Order Covid19 at [facility] SARS-CoV-2 (PCR) 12/11/20 12/11/20 12/11/20 10:00 10:00 10:00 WBC RBC Hgb Hct MCV MCH MCHC RDW Std Deviation RDW Coeff of Anjelica Plt Count MPV Immature Gran % (Auto) Neut % (Auto) Lymph % (Auto) [place] % (Auto) Eos % (Auto) Baso % (Auto) Neut # (Auto) Lymph # (Auto) [place] # (Auto) Eos # (Auto) Baso # (Auto) Immature Gran # (Auto) ESR 54 H Sodium Potassium Chloride Carbon Dioxide Anion Gap BUN Creatinine Est Cr Clr Drug Dosing Est GFR ( Amer) Est GFR (Non-Af Amer) BUN/Creatinine Ratio Glucose Estimat Average Glucose Hemoglobin A1c Calcium Magnesium 2.2 Total Bilirubin AST ALT Alkaline Phosphatase Total Creatine Kinase 55 Troponin I C-Reactive Protein 1.69 H NT-Pro-B Natriuret Pep Total Protein Albumin Globulin Albumin/Globulin Ratio Nasal Screen MRSA (PCR) COVID-19 Eval Order SARS-CoV-2 (PCR) NEGATIVE 12/11/20 12/11/20 10:00 Unknown WBC RBC Hgb Hct MCV MCH MCHC RDW Std Deviation RDW Coeff of Anjelica Plt Count MPV Immature Gran % (Auto) Neut % (Auto) Lymph % (Auto) [place] % (Auto) Eos % (Auto) Baso % (Auto) Neut # (Auto) Lymph # (Auto) [place] # (Auto) Eos # (Auto) Baso # (Auto) Immature Gran # (Auto) ESR Sodium Potassium Chloride Carbon Dioxide Anion Gap BUN Creatinine Est Cr Clr Drug Dosing Est GFR ( Amer) Est GFR (Non-Af Amer) BUN/Creatinine Ratio Glucose Estimat Average Glucose 128 Hemoglobin A1c 6.1 H Calcium Magnesium Total Bilirubin AST ALT Alkaline Phosphatase Total Creatine Kinase Troponin I C-Reactive Protein NT-Pro-B Natriuret Pep Total Protein Albumin Globulin Albumin/Globulin Ratio Nasal Screen MRSA (PCR) Negative COVID-19 Eval Order SARS-CoV-2 (PCR) Diagnostic Findings CXR - no infiltrates venous duplex LLE - negative for DVT EKG - my reading - sinus myah, no ST changes Code Status & VTE Plan Code Status full VTE Prophylaxis Plan VTE Prophylaxis will be ordered: Yes PG Care Time/CCT Total # of Minutes Spent Total Time Spent with Patient: Total time spent is greater than 50% in coordination of care (as documented) at patient's floor/unit and/or counseling patient: Coding Level of Care Code 75902 OBS Care - Level 3 Diagnoses Cellulitis of left lower leg L03.116 Streptococcal bacteremia R78.81; B95.5 Edema R60.9 Chronic diastolic CHF (congestive heart failure) I50.32 CAD in [place] artery I25.10 Abnormal glucose R73.09 Chronic kidney disease, stage 3 (moderate) N18.3 Hyperlipidemia E78.5 Hypertension I10 Tinea pedis B35.3 DVT prophylaxis Z29.9
[2020-12-11 12:31] LABS: C Reactive Protein 1.69 mg/dl (0-0.29); Magnesium 2.2 mg/dl (1.8-2.4)
--- NOTE | 2020-12-11 12:44 | Electrocardiogram Report ---
Test Reason : Blood Pressure : / mmHG Vent. Rate : 053 BPM Atrial Rate : 053 BPM P-R Int : 184 ms QRS Dur : 096 ms QT Int : 448 ms P-R-T Axes : 018 010 023 degrees QTc Int : 420 ms Sinus bradycardia Otherwise normal ECG When compared with ECG of 23-NOV-2020 12:50, T wave amplitude has increased in Anterior leads Confirmed by Perry Munroe ([id number]) on 12/11/2020 12:44:07 PM Referred By: REFERRED SELF Confirmed By:Antonio Munroe
[2020-12-11 13:12] LABS: Estimated Average Glucose 128 mg/dl; Hemoglobin A1C 6.1 % (4.5-5.6)
[2020-12-11] MEDS ORDERED: ONDANSETRON INJ 2 MG/ML 2 ML VIAL IV PRN (14:46)
[2020-12-11] MEDS: ENOXAPARIN INJ 40 MG/0.4 ML SYR SQ SCH (16:15)
[2020-12-11] MEDS: KETOCONAZOLE 2% CR 15 GM TUBE EXT SCH (20:18)
--- NOTE | 2020-12-11 22:27 | Ultrasound Report ---
ULTRASOUND US arterial duplex LE LT CLINICAL HISTORY: refractory cellulitis; eval for LLE PAD COMPARISON STUDY: None FINDINGS: Real-time as well as Doppler evaluation of the arterial structures of the left lower extre mity was performed. Waveforms are mostly biphasic. Extensive vascular calcifications are seen.. Peak systolic velocity within proximal aspect of the right superficial femoral artery is significantl y increased measuring 215 cm/s consistent with stenosis.Peak systolic velocity within mid aspect of r ight superficial femoral artery is measuring 177 cm per sec and, within distal aspect measuring 136 c m/s. Velocities within popliteal and calf arteries are not significantly enlarged due to upstream stenosis . Blood pressure was not measured due to pain. 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 Atherosclerosis. Electronically signed by: Giulia Slaughter DO 12/11/2020 10:26 PM
[2020-12-12 07:04] LABS: Hematocrit (blood only) 38.5 % (42-52); Hemoglobin 12.9 g/dL (14.0-18.0); Mean Corpuscular Hgb Conc 33.5 g/dL (32-36); Mean Corpuscular Volume 98.5 fL (80-100); Mean Platelet Volume 10.1 fL (7.4-10.4); Platelet Count 262 K/uL (130-400); RDW Coefficient of Variation 13.2 % (11.5-14.5); RDW Standard Deviation 47.3 fL (36.4-46.3); Red Blood Count 3.91 M/uL (4.7-6.1); White Blood Count 6.92 K/uL (4.8-10.8)
[2020-12-12 07:33] LABS: BUN Creatinine Ratio 16.9 (10-20); Calcium 8.8 mg/dl (8.5-10.1); Creatinine Clr Calc Pharmacy 53.5 ml/min; Est GFR (African American) 66.2 ml/min; Est GFR (Non-African American) 57.1 ml/min; Potassium 3.9 mmol/L (3.5-5.1)
[2020-12-12] MEDS: TORSEMIDE 10 MG TAB PO SCH (08:47)
[2020-12-12] MEDS: ASPIRIN 81 MG ECTAB PO SCH (08:48)
[2020-12-12] MEDS: METOPROLOL SUCC 25MG EXT REL TAB PO SCH (08:48)
[2020-12-12] MEDS: ATORVASTATIN 40 MG TAB PO SCH (08:48)
[2020-12-12] MEDS: SACCHAROMYCES BOULARDII 250 MG CAP PO SCH (08:48)
[2020-12-12] MEDS: KETOCONAZOLE 2% CR 15 GM TUBE EXT SCH ×2 (08:49→20:27)
[2020-12-12] MEDS ORDERED: CEFEPIME 2,000 MG in SYRINGE 0 ML IV SCH (10:00)
[2020-12-12] MEDS: ENOXAPARIN INJ 40 MG/0.4 ML SYR SQ SCH (16:14)
--- NOTE | 2020-12-12 17:58 | Hospitalist Progress Note ---
Date of Service December 12, 2020 Assessment & Plan (1) Cellulitis of left lower leg: admitted 11/24 to 11/29 at [facility]. presumed pathogen of LLE cellulitis during that visit - group G strep, as this had grown in 1/4 blood culture bottles during that hospital stay. clinically improved with IV rocephin/vanco. seen by Teresa ID telehealth - amoxicillin advised along with elevation & compression. d/c home on 14 day course of amoxicillin. by report the LLE cellulitis improved but never fully resolved. he received dalvance this past Friday12/08/20 in the ER which will provide 1 week of MSSA and MRSA coverage. 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; again he received dalvance 12/08 and should cover for 11 more days continue elevation continue diuretics pending additional [facility] consultation (2) Streptococcal bacteremia: group G strep, 1/4 bottles during previous admission repeat blood cx's 11/25 were negative has had 10+ days of effective Rx for group G strep between IV rocephin during the prior admission and po amoxicillin post-d/c no signs/symptoms of systemic infection today crp is slighlty up (3) Edema: cont torsemide no evidence of DVT LLE his weight is down considerably from last hospitalization, and his left foot edema is overall better (4) Chronic diastolic CHF (congestive heart failure): compensated (5) CAD in [place] artery: no ischemic symptoms at this time (6) Abnormal glucose: HbA1c 6.1% - c/w preDM. change diet to DM diet. has been controlled with dietary control alone. could be contributing to refractoriness of his LLE cellulitis (7) Chronic kidney disease, stage 3 (moderate): Cr and CrCL today at baseline (8) Hyperlipidemia: statin (9) Hypertension: cont home meds (10) Tinea pedis: left foot - interdigital ketoconazole cream BID (11) DVT prophylaxis: lovenox daily Admission and Anticipated Discharge Date Admission Date: December 11, 2020 Subjective pt is feeling well still with redness and pain to the left lower leg, thinks its worse that when he left initially Review of Systems Review of Systems: Mild distress and fatigue no headache, no visual changes no speech or swallowing issues no chest pain, pressure or palpitations no shortness of breath, cough or wheezes no abdominal pain, nausea or vomiting, diarrhea or constipation no dysuria, hematuria or frequency no focal joint pain redness or swelling to the distal left lower extremity no back pain, CVA tenderness or radicular pain Erythema and tenderness to the left lower extremity no focal signs of weakness or numbness or altered sensation no complaints of anxiety or depression.. Physical Exam Physical Exam: The patient appeared well nourished and normally developed. Vital signs as documented. Head exam is normocephalic atraumatic Neck is without JVD, thyromegaly, or carotid bruits. Lungs are clear to auscultation, no focal loss of breath sounds Cardiac exam, Rhythm is regular.. No murmurs, rubs or gallops. Abdominal exam reveals normal bowel sounds, soft non tender, no masses Left lower extremity is erythematous and tender in a diffuse purpleish blanchable circumferential area to the distal one third of his left lower leg Neurologic exam is alert and oriented, no focal loss of strength or sensation Skin is with changed as listed above no portal of entry noted Psychologically is without concerns for anxiety or depression Results & Data Results & Data ([facility]) Vital Signs (Past 12 Hours) Vital Signs Temp Pulse Pulse Resp BP Pulse Ox 12/12/20 15:44 97.5 F L 52 L 19 136/71 95 12/12/20 15:24 61 12/12/20 11:23 97.5 F L 54 L 20 149/72 H 94 12/12/20 08:49 68 12/12/20 07:48 97.7 F 58 L 19 163/77 H 94 12/12/20 07:40 57 L PG Care Time/CCT Total # of Minutes Spent Total Time Spent with Patient: Total time spent is greater than 50% in coordination of care (as documented) at patient's floor/unit and/or counseling patient: Coding Level of Care Code 01831 Subseq Hosp Care Lvl 2 Diagnoses Cellulitis of left lower leg L03.116 Streptococcal bacteremia R78.81; B95.5 Edema R60.9 Chronic diastolic CHF (congestive heart failure) I50.32 CAD in [place] artery I25.10 Abnormal glucose R73.09 Chronic kidney disease, stage 3 (moderate) N18.3 Hyperlipidemia E78.5 Hypertension I10 Tinea pedis B35.3 DVT prophylaxis Z29.9
[2020-12-12] MEDS: CEFEPIME 2,000 MG in SYRINGE 0 ML IV SCH (20:27)
[2020-12-13 07:28] LABS: Creatinine Clr Calc Pharmacy 45.9 ml/min; Est GFR (African American) 55.6 ml/min
[2020-12-13] MEDS: SACCHAROMYCES BOULARDII 250 MG CAP PO SCH (08:22)
[2020-12-13] MEDS: KETOCONAZOLE 2% CR 15 GM TUBE EXT SCH ×2 (08:22→20:12)
[2020-12-13] MEDS: TORSEMIDE 10 MG TAB PO SCH (08:22)
[2020-12-13] MEDS: ASPIRIN 81 MG ECTAB PO SCH (08:22)
[2020-12-13] MEDS: ATORVASTATIN 40 MG TAB PO SCH (08:22)
[2020-12-13] MEDS: METOPROLOL SUCC 25MG EXT REL TAB PO SCH (08:22)
[2020-12-13] MEDS: CEFEPIME 2,000 MG in SYRINGE 0 ML IV SCH (08:24)
--- NOTE | 2020-12-13 12:31 | Emergency Department Note ---
Impression & Plan Cellulitis ED Provider Note NAME: JHON TEMPLETON AGE: 85 SEX: M : 1935 ARRIVES VIA: Walk-In INFORMANT: Patient, ED PROVIDER(S): Wilber Bee MD CHIEF COMPLAINT: cellulitis HPI: This is an 85-year-old male that presents back to the emergency department after receiving Dalvance 2 days ago for left lower extremity cellulitis. The patient's reports that his cellulitis has not improved. The patient reports he is having pain to that leg. He describes the pain as a burning sensation made worse with movement. He reports rest makes the sensation better. He denies any fevers or chills. He has not taken anything for the pain prior to arrival. He reports he has been wearing his compression stockings. ROS: See above HPI for pertinent positives & negatives. A total of 10 systems reviewed and were otherwise negative. PAST MEDICAL HISTORY: See Below PAST SURGICAL HISTORY: See Below FAMILY HISTORY: See Below SOCIAL HISTORY: See Below HOME MEDICATIONS: See Below ALLERGIES: See Below VITALS: See Below PHYSICAL EXAMINATION: VITAL SIGNS - Vital signs and nursing notes were reviewed. GENERAL - 85-year-old male appearing stated age who is in no acute distress. C ommunicates well with provider and answers questions appropriately. SKIN - Without rashes. HEAD - NC/AT. EYES - PERRL with EOMI bilaterally. Sclera anicteric. Palpebral conjunctiva pink and moist with no injection noted. EARS - No deformities of external structures noted on gross examination gaby aterally. NOSE - Midline and without cyanosis. No epistaxis or purulent drainage noted. Septum midline without deviation or septal hematoma noted. MOUTH/OROPHARYNX - Without perioral cyanosis. Buccal mucosa pink and moist and without leukoplakia. Tongue midline with equal elevation of palate bilaterally. No tonsillar hypertrophy, erythema, or exudates noted. NECK - Neck with FROM. Supple to palpation.No nuchal rigidity. LUNGS - Chest wall symmetric without accessory muscle use, intercostals retractions, or central cyanosis. Normal vesicular breath sounds CTA B/L. No wheezes, rales, or rhonchi appreciated. CARDIAC - RRR with S1/S2. No murmur, rubs, or gallops appreciated. ABDOMEN - Abdominal contour BS normoactive all four quadrants. No tenderness, palpable masses, hepatosplenomegaly, or ascites noted. EXTREMITIES - No clubbing or peripheral cyanosis. No pretibial edema present. +3/5 radial, posterior tibial, and dorsalis pedis pulses palpated throughout. +5/5 strength noted in UE/LE bilaterally. Patient has a red and swollen left lower extremity that extends up to the knee. NEUROLOGIC - Cranial nerves II through XII grossly intact. Sensory intact to light touch throughout. Patellar reflexes +2/4. PSYCH - A&Ox3 and cooperates fully with examiner. Pt is very pleasant and interacts well with examiner. MEDICAL DECISION MAKING: Patient was seen and evaluated as above in room A10. Review was performed of nursing notes and vital signs. I did review pertinent previous visits and patient history. After obtaining a thorough history and physical examination the above work up was performed. This is an 85-year-old male who presents emergency department complaining of left lower extremity swelling. The patient swelling extends all the way up to his knee. I am concerned that this has not improved with the Dalvance and will note that the patient has had a complicated history of cellulitis with this leg. After discussing the case with pharmacy the decision was made to place the patient on cefepime. I did discuss case also with hospitalist service who did agree to admit the patient I would note that the patient does not have an elevation in his white blood cell count. While in the department, I personally reevaluated the patient several times and each time the patient was found to be resting comfortably. The patient was educated upon management, educated upon todays findings/results, educated upon importance of follow up from today's visit, educated upon symptoms in which to return, had questions answered prior to discharge, verbalized understanding, and was discharged home in good condition. An order was placed for continuous cardiac monitoring. The monitor shows a rate of 57 with Normal SInus rhythm. I attest that I have personally reviewed the patient medication list. I attest that I have reviewed the patient's blood pressure and it was found to be [] GCS: 15 The patient was evaluated during a period of high volume and high acuity during the global COVID-19 pandemic, and that diagnosis was suspected/considered upon their initial presentation. Their evaluation, treatment and testing was consistent with current guidelines for patients who present with complaints or symptoms that may be related to COVID-19. Patient was seen while provider was wearing PPE. Triage Nursing notes reviewed. Prior medical records reviewed Vital Signs: reviewed and remarkable for no significant abnormalities Differential diagnosis: Cellulitis, abscess, MRSA infection, DVT, necrotizing fasciitis, dermatitis, drug eruption, allergic reaction, as well as other pathologies. ER treatment provided: See below Diagnostics interpreted by me: ECG: EKG shows a sinus bradycardia no ST elevation or depression QTC is 420 ventricular rate is 53 EKG is compared to 11/23/2020 is unchanged. Laboratory studies: As stated above and show below. Imaging studies: See below Consultation(s): Internal Medicine, pharmacy Past Med/Surg History Medical History (Updated 12/13/20 @ 12:30 by Wilber Bee MD) CAD in [place] artery Cellulitis of left lower leg Admitted 10/2020 [facility] Chronic kidney disease, stage 3 (moderate) Edema Fracture, humerus Hearing loss, bilateral History of AK (myocardial infarction) Hyperlipidemia Hyperparathyroidism Hypertension Kidney stones Osteoarthritis, multiple sites Pulmonary embolism (02/19/14) Vitamin D deficiency Surgical History History of knee replacement procedure of right knee S/P coronary artery stent placement Family History Aunt Breast cancer Mother Hypertension Kidney disease ESRD - did not go on dialysis Father Myocardial infarction Stroke Denies family history of Ovarian cancer Prostate cancer Diabetes Lung cancer Colorectal cancer Social History (Updated 12/11/20 @ 11:53 by Umesh Callejas) Smoking Status: Former smoker Tobacco Type: Cigarettes packs per day: 0.5; Years Smoked: 20; Smoking End Date: quit in his 30s; Second Hand Exposure: No; Hx Alcohol Use: No Hx Substance Use: No Preferred Language: [place] Citizen Communication Ability: Effective Smoking Pipe Mounter Required: No Beliefs That Will Affect Care: None marital status: Current Living Situation: Spouse current occupational status: retired How many Children do You have: 2 How many Children do You have Comment: 2 are Other Information That Helps Us Care for You: No other: 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, 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 [employer] Feels Safe at Home: Yes Safety Concerns: Feels Safe At This Time Childhood Exposure to Second-Hand Smoke: No caffeine: Yes (coffee) Dental Care, Regularly: No Physical Activity Frequency: Does not Exercise Seatbelt Use: always Sunscreen Use: Yes Assistive Devices: None Assistive Devices Comment: partial dentures upper and lower Allergies Allergies Allergy/AdvReac Type Severity Reaction Status Date / Time No Known Allergies Allergy Verified 12/11/20 10:17 Home Meds Home Medications Medication Instructions Recorded Confirmed aspirin [Aspirin Low Dose] 81 mg PO DAILY 10/30/18 12/11/20 echinacea purpurea extract 0 mg PO UD PRN 12/29/18 12/11/20 [echinacea] Previous Rx's Medication Instructions Recorded atorvastatin 80 mg tablet 40 mg PO QAM #45 tab 12/08/19 metoprolol succinate 25 mg 25 mg PO QAM #90 tab 12/08/19 tablet,extended release 24 hr torsemide 10 mg tablet 10 mg PO DAILY #90 tab 08/09/20 ergocalciferol (vitamin D2) 1,250 1,250 mcg PO .COMPLEX #21 cap 11/02/20 mcg (50,000 unit) capsule Saccharomyces boulardii 250 mg PO DAILY 14 Days #14 cap 11/29/20 amoxicillin 500 mg PO TID 14 Days #42 cap 11/29/20 Results & Data (ED) Vital Signs Vital Signs - 24 hr 12/12/20 15:24 12/12/20 15:44 Temperature 36.4 C L Temperature Source Oral Pulse Rate 61 Pulse Rate [Finger] 52 L Respiratory Rate 19 Blood Pressure [Right Arm] 136/71 Blood Pressure Mean [Right Arm] 92 Blood Pressure Position [Right Arm] Lying Pulse Oximetry 95 Oxygen Delivery Method Room Air Home Medications Current Medication List: was personally reviewed by me Laboratory Data Attestation: I reviewed the patient's lab results. Result diagrams: 12/12/20 06:44 12/13/20 06:36 Lab Results 12/11/20 12/11/20 12/11/20 Range/Units 10:00 10:00 10:00 WBC 7.86 (4.8-10.8) K/uL RBC 4.21 L (4.7-6.1) M/uL Hgb 13.9 L (14.0-18.0) g/dL Hct 41.0 L (42-52) % MCV 97.4 (80-100) fL MCH 33.0 (25-34) pg MCHC 33.9 (32-36) g/dL RDW Std Deviation 47.0 H (36.4-46.3) fL RDW Coeff of Anjelica 13.3 (11.5-14.5) % Plt Count 254 (130-400) K/uL MPV 10.3 (7.4-10.4) fL Immature Gran % (Auto) 0.4 % Neut % (Auto) 73.7 % Lymph % (Auto) 13.4 % Steele % (Auto) 10.7 % Eos % (Auto) 1.5 % Baso % (Auto) 0.3 % Neut # (Auto) 5.80 (1.4-6.5) K/uL Lymph # (Auto) 1.05 L (1.2-3.4) K/uL Steele # (Auto) 0.84 H (0.11-0.59) K/uL Eos # (Auto) 0.12 (0-0.5) K/uL Baso # (Auto) 0.02 (0-0.2) K/uL Immature Gran # (Auto) 0.03 H (0.00-0.02) K/uL ESR (0-20) mm/hr Sodium 140 (136-145) mmol/L Potassium 4.0 (3.5-5.1) mmol/L Chloride 105 (98-107) mmol/L Carbon Dioxide 29 (21-32) mmol/L Anion Gap 6.0 (3-11) BUN 20 H (7-18) mg/dl Creatinine 1.39 (0.6-1.4) mg/dl Est Cr Clr Drug Dosing 44.9 ml/min Est GFR ( Amer) 53.2 ml/min Est GFR (Non-Af Amer) 45.9 ml/min BUN/Creatinine Ratio 14.3 (10-20) Glucose 99 (70-99) mg/dl POC Glucose (70-99) mg/dl Estimat Average Glucose mg/dl Hemoglobin A1c (4.5-5.6) % Calcium 8.2 L (8.5-10.1) mg/dl Magnesium (1.8-2.4) mg/dl Total Bilirubin 0.9 (0.2-1) mg/dl AST 18 (15-37) U/L ALT 24 (12-78) U/L Alkaline Phosphatase 147 H (45-117) U/L Total Creatine Kinase (39-308) U/L Troponin I < 0.015 (0-0.045) ng/ml C-Reactive Protein (0-0.29) mg/dl NT-Pro-B Natriuret Pep 192 (0-1800) pg/ml Total Protein 7.1 (6.4-8.2) gm/dl Albumin 3.2 L (3.4-5.0) gm/dl Globulin 3.9 (2.5-4.0) gm/dl Albumin/Globulin Ratio 0.8 L (0.9-2) Nasal Screen MRSA (PCR) (Negative) COVID-19 Eval Order Covid19 at [facility] SARS-CoV-2 (PCR) (Negative) 12/11/20 12/11/20 12/11/20 Range/Units 10:00 10:00 10:00 WBC (4.8-10.8) K/uL RBC (4.7-6.1) M/uL Hgb (14.0-18.0) g/dL Hct (42-52) % MCV (80-100) fL MCH (25-34) pg MCHC (32-36) g/dL RDW Std Deviation (36.4-46.3) fL RDW Coeff of Anjelica (11.5-14.5) % Plt Count (130-400) K/uL MPV (7.4-10.4) fL Immature Gran % (Auto) % Neut % (Auto) % Lymph % (Auto) % Steele % (Auto) % Eos % (Auto) % Baso % (Auto) % Neut # (Auto) (1.4-6.5) K/uL Lymph # (Auto) (1.2-3.4) K/uL Steele # (Auto) (0.11-0.59) K/uL Eos # (Auto) (0-0.5) K/uL Baso # (Auto) (0-0.2) K/uL Immature Gran # (Auto) (0.00-0.02) K/uL ESR 54 H (0-20) mm/hr Sodium (136-145) mmol/L Potassium (3.5-5.1) mmol/L Chloride (98-107) mmol/L Carbon Dioxide (21-32) mmol/L Anion Gap (3-11) BUN (7-18) mg/dl Creatinine (0.6-1.4) mg/dl Est Cr Clr Drug Dosing ml/min Est GFR ( Amer) ml/min Est GFR (Non-Af Amer) ml/min BUN/Creatinine Ratio (10-20) Glucose (70-99) mg/dl POC Glucose (70-99) mg/dl Estimat Average Glucose mg/dl Hemoglobin A1c (4.5-5.6) % Calcium (8.5-10.1) mg/dl Magnesium 2.2 (1.8-2.4) mg/dl Total Bilirubin (0.2-1) mg/dl AST (15-37) U/L ALT (12-78) U/L Alkaline Phosphatase (45-117) U/L Total Creatine Kinase 55 (39-308) U/L Troponin I (0-0.045) ng/ml C-Reactive Protein 1.69 H (0-0.29) mg/dl NT-Pro-B Natriuret Pep (0-1800) pg/ml Total Protein (6.4-8.2) gm/dl Albumin (3.4-5.0) gm/dl Globulin (2.5-4.0) gm/dl Albumin/Globulin Ratio (0.9-2) Nasal Screen MRSA (PCR) (Negative) COVID-19 Eval Order SARS-CoV-2 (PCR) NEGATIVE (Negative) 12/11/20 12/11/20 12/12/20 Range/Units 10:00 Unknown 06:44 WBC 6.92 (4.8-10.8) K/uL RBC 3.91 L (4.7-6.1) M/uL Hgb 12.9 L (14.0-18.0) g/dL Hct 38.5 L (42-52) % MCV 98.5 (80-100) fL MCH 33.0 (25-34) pg MCHC 33.5 (32-36) g/dL RDW Std Deviation 47.3 H (36.4-46.3) fL RDW Coeff of Anjelica 13.2 (11.5-14.5) % Plt Count 262 (130-400) K/uL MPV 10.1 (7.4-10.4) fL Immature Gran % (Auto) % Neut % (Auto) % Lymph % (Auto) % Steele % (Auto) % Eos % (Auto) % Baso % (Auto) % Neut # (Auto) (1.4-6.5) K/uL Lymph # (Auto) (1.2-3.4) K/uL Steele # (Auto) (0.11-0.59) K/uL Eos # (Auto) (0-0.5) K/uL Baso # (Auto) (0-0.2) K/uL Immature Gran # (Auto) (0.00-0.02) K/uL ESR (0-20) mm/hr Sodium (136-145) mmol/L Potassium (3.5-5.1) mmol/L Chloride (98-107) mmol/L Carbon Dioxide (21-32) mmol/L Anion Gap (3-11) BUN (7-18) mg/dl Creatinine (0.6-1.4) mg/dl Est Cr Clr Drug Dosing ml/min Est GFR ( Amer) ml/min Est GFR (Non-Af Amer) ml/min BUN/Creatinine Ratio (10-20) Glucose (70-99) mg/dl POC Glucose (70-99) mg/dl Estimat Average Glucose 128 mg/dl Hemoglobin A1c 6.1 H (4.5-5.6) % Calcium (8.5-10.1) mg/dl Magnesium (1.8-2.4) mg/dl Total Bilirubin (0.2-1) mg/dl AST (15-37) U/L ALT (12-78) U/L Alkaline Phosphatase (45-117) U/L Total Creatine Kinase (39-308) U/L Troponin I (0-0.045) ng/ml C-Reactive Protein (0-0.29) mg/dl NT-Pro-B Natriuret Pep (0-1800) pg/ml Total Protein (6.4-8.2) gm/dl Albumin (3.4-5.0) gm/dl Globulin (2.5-4.0) gm/dl Albumin/Globulin Ratio (0.9-2) Nasal Screen MRSA (PCR) Negative (Negative) COVID-19 Eval Order SARS-CoV-2 (PCR) (Negative) 12/12/20 12/12/20 12/12/20 Range/Units 06:44 07:38 11:40 WBC (4.8-10.8) K/uL RBC (4.7-6.1) M/uL Hgb (14.0-18.0) g/dL Hct (42-52) % MCV (80-100) fL MCH (25-34) pg MCHC (32-36) g/dL RDW Std Deviation (36.4-46.3) fL RDW Coeff of Anjelica (11.5-14.5) % Plt Count (130-400) K/uL MPV (7.4-10.4) fL Immature Gran % (Auto) % Neut % (Auto) % Lymph % (Auto) % Steele % (Auto) % Eos % (Auto) % Baso % (Auto) % Neut # (Auto) (1.4-6.5) K/uL Lymph # (Auto) (1.2-3.4) K/uL Steele # (Auto) (0.11-0.59) K/uL Eos # (Auto) (0-0.5) K/uL Baso # (Auto) (0-0.2) K/uL Immature Gran # (Auto) (0.00-0.02) K/uL ESR (0-20) mm/hr Sodium 140 (136-145) mmol/L Potassium 3.9 (3.5-5.1) mmol/L Chloride 107 (98-107) mmol/L Carbon Dioxide 26 (21-32) mmol/L Anion Gap 7.0 (3-11) BUN 20 H (7-18) mg/dl Creatinine 1.16 (0.6-1.4) mg/dl Est Cr Clr Drug Dosing 53.5 ml/min Est GFR ( Amer) 66.2 ml/min Est GFR (Non-Af Amer) 57.1 ml/min BUN/Creatinine Ratio 16.9 (10-20) Glucose 97 (70-99) mg/dl POC Glucose 113 H 111 H (70-99) mg/dl Estimat Average Glucose mg/dl Hemoglobin A1c (4.5-5.6) % Calcium 8.8 (8.5-10.1) mg/dl Magnesium (1.8-2.4) mg/dl Total Bilirubin (0.2-1) mg/dl AST (15-37) U/L ALT (12-78) U/L Alkaline Phosphatase (45-117) U/L Total Creatine Kinase (39-308) U/L Troponin I (0-0.045) ng/ml C-Reactive Protein (0-0.29) mg/dl NT-Pro-B Natriuret Pep (0-1800) pg/ml Total Protein (6.4-8.2) gm/dl Albumin (3.4-5.0) gm/dl Globulin (2.5-4.0) gm/dl Albumin/Globulin Ratio (0.9-2) Nasal Screen MRSA (PCR) (Negative) COVID-19 Eval Order SARS-CoV-2 (PCR) (Negative) Administered Medications Aspirin (Aspirin 81 Mg Ectab) 81 mg PO DAILY [facility] Stop: 01/11/21 08:59 Last Admin: 12/13/20 08:22 Dose: 81 mg Documented by: [id number] Admin: 12/12/20 08:48 Dose: 81 mg Documented by: [id number] Atorvastatin Calcium (Atorvastatin 40 Mg Tab) 40 mg PO QAM [facility] Stop: 01/11/21 08:59 Last Admin: 12/13/20 08:22 Dose: 40 mg Documented by: [id number] Admin: 12/12/20 08:48 Dose: 40 mg Documented by: [id number] Enoxaparin Sodium (Enoxaparin Inj 40 Mg/0.4 Ml Syr) 40 mg SQ Q24H [facility] Stop: 01/10/21 15:59 Last Admin: 12/12/20 16:14 Dose: 40 mg Documented by: [id number] Admin: 12/11/20 16:15 Dose: 40 mg Documented by: [id number] Cefepime HCl 2,000 mg/ Syringe 20 mls @ 5 mls/min IV Q12H [facility]; Protocol Stop: 12/19/20 19:59 Last Admin: 12/13/20 08:24 Dose: 5 mls/min Documented by: [id number] Admin: 12/12/20 20:27 Dose: 5 mls/min Documented by: [id number] Ketoconazole (Ketoconazole 2% Cr 15 Gm Tube) 1 appln EXT BID BARB Stop: 12/21/20 20:59 Last Admin: 12/13/20 08:22 Dose: 1 appln Documented by: [id number] Admin: 12/12/20 20:27 Dose: 1 appln Documented by: [id number] Admin: 12/12/20 08:49 Dose: 1 appln Documented by: [id number] Admin: 12/11/20 20:18 Dose: 1 appln Documented by: [id number] Metoprolol Succinate (Metoprolol Succ 25mg Ext Rel Tab) 25 mg PO QAM [facility] Stop: 01/11/21 08:59 Last Admin: 12/13/20 08:22 Dose: 25 mg Documented by: [id number] Admin: 12/12/20 08:48 Dose: 25 mg Documented by: [id number] Saccharomyces Boulardii (Saccharomyces Boulardii 250 Mg Cap) 250 mg PO DAILY [facility] Stop: 01/11/21 08:59 Last Admin: 12/13/20 08:22 Dose: 250 mg Documented by: [id number] Admin: 12/12/20 08:48 Dose: 250 mg Documented by: [id number] Torsemide (Torsemide 10 Mg Tab) 10 mg PO DAILY BARB Stop: 01/11/21 08:59 Last Admin: 12/13/20 08:22 Dose: 10 mg Documented by: [id number] Admin: 12/12/20 08:47 Dose: 10 mg Documented by: [id number] Discontinued Medications Cefepime HCl (Maxipime) 2,000 mg in 20 mls @ 5 mls/min IV NOW STA Stop: 12/11/20 09:40 Last Admin: 12/11/20 10:02 Dose: 5 mls/min Documented by: [id number] Cefepime HCl 2,000 mg/ Syringe 20 mls @ 5 mls/min IV Q24H [facility]; Protocol Stop: 12/18/20 09:59 Last Admin: 12/12/20 10:20 Dose: 5 mls/min Documented by: [id number] Imaging Data Radiologist's Impression: Chest X-Ray 12/11/20 09:30 XR chest 1V portable HISTORY: Left leg swelling. COMPARISON: 11/23/2020. FINDINGS: Cardiac silhouette is borderline enlarged. No focal lung consolidations to suggest pneumonia. No evidence for pulmonary edema. No pleural effusions. No pneumothorax. Advanced degenerative changes again noted within the right shoulder. IMPRESSION: No evidence for pulmonary edema. ACT 112: Negative or not required by law. Electronically signed by: Augie Deal M.D. 12/11/2020 10:06 AM Venous Doppler Study 12/11/20 09:47 LEFT LOWER EXTREMITY VENOUS DOPPLER CLINICAL HISTORY: Left leg swelling. COMPARISON STUDY: Left lower extremity venous Doppler ultrasound November 24, 2020. TECHNIQUE: Sonography of the deep venous system of the left lower extremity was performed. Compression and augmentation were evaluated. FINDINGS: The left common femoral, superficial femoral and popliteal veins were compressible. Augmentation was normal. Flow was shown within the deep calf vessels. IMPRESSION: No evidence of deep venous thrombus within the left lower extremity. ACT 112: Negative or not required by law. Electronically signed by: Manish Lynn M.D. 12/11/2020 10:47 AM Duplex Scan Lower Extremity Artery 12/11/20 14:46 ULTRASOUND US arterial duplex LE LT CLINICAL HISTORY: refractory cellulitis; eval for LLE PAD COMPARISON STUDY: None FINDINGS: Real-time as well as Doppler evaluation of the arterial structures of the left lower extremity was performed. Waveforms are mostly biphasic. Extensive vascular calcifications are seen.. Peak systolic velocity within proximal aspect of the right superficial femoral artery is significantly increased measuring 215 cm/s consistent with stenosis.Peak systolic velocity within mid aspect of right superficial femoral artery is measuring 177 cm per sec and, within distal aspect measuring 136 cm/s. Velocities within popliteal and calf arteries are not significantly enlarged due to upstream stenosis. Blood pressure was not measured due to pain. 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 Atherosclerosis. Electronically signed by: Giulia Slaughter DO 12/11/2020 10:26 PM Discharge Plan Visit Data Chief Complaint: [place] Wound Recheck Stated Complaint: TOLD TO FOLLOW UP HERE FOR Friday ED Provider: Wilber Bee Discharge Problem: Cellulitis Patient Disposition: Admitted As Inpatient Discharge Instructions Interventions: ED Discharge Assessment Last Done: 12/11/20 13:50 Discharge Problem: Cellulitis Qualifiers: Site of cellulitis: unspecified site Qualified Code(s): L03.90 - Cellulitis, unspecified
--- NOTE | 2020-12-13 13:00 | Consultation ---
Date of Consultation December 13, 2020 Assessment & Plan (1) Peripheral arterial disease: Pt with mild PAD and +2 distal pulses LLE, with LLE cellulitis from foot to knee. No ulcerations/wounds noted. Recommend medical management of cellulitis. No indications for vascular surgical intervention at this time. Please call if needed. History of Present Illness Reason for Consultation: LLE PAD, cellulitis Attending Physician: Woodrow Stinson MD History of Present Illness 85 yo m with hx of CHF, CAD, CKD, HTN, hyperlipidemia, osteoarthritis, hyperparathyroidism, admitted with acute LLE cellulitis which began a few days ago, seen in consultation today for PAD noted on US. Pt states he had RLE cellulitis in 2019 and was treated by Dr Guzman, infectious disease. States he developed LLE cellulitis a few weeks ago and was seen at [facility] and started on abx. States it was improved, but noted increase in LLE erythema 3 days ago and came back to [facility]. Admits some discomfort, but states no significant pain. Admits warmth, edema, erythema of LLE, but states is slightly improved since admission. Denies fever, chest pain, SOB, abd pain, N/V, rest pain, claudication, toe ulcerations, injury, other complaints. LLE arterial US demonstrates mild PAD with possible stenosis of SFA. Allergies Allergy/AdvReac Type Severity Reaction Status Date / Time No Known Allergies Allergy Verified 12/11/20 10:17 Home Medications Medication Instructions Recorded Confirmed Type aspirin [Aspirin Low Dose] 81 mg PO DAILY 10/30/18 12/11/20 History echinacea purpurea extract 0 mg PO UD PRN 12/29/18 12/11/20 History [echinacea] atorvastatin 80 mg tablet 40 mg PO QAM #45 tab 12/08/19 12/11/20 Rx metoprolol succinate 25 mg 25 mg PO QAM #90 tab 12/08/19 12/11/20 Rx tablet,extended release 24 hr torsemide 10 mg tablet 10 mg PO DAILY #90 tab 08/09/20 12/11/20 Rx ergocalciferol (vitamin D2) 1,250 1,250 mcg PO .COMPLEX #21 cap 11/02/20 12/11/20 Rx mcg (50,000 unit) capsule Saccharomyces boulardii 250 mg PO DAILY 14 Days #14 cap 11/29/20 12/11/20 Rx amoxicillin 500 mg PO TID 14 Days #42 cap 11/29/20 12/11/20 Rx Patient History Medical History CAD in the [place] artery Cellulitis of left lower leg Admitted 10/2020 [facility] Chronic kidney disease, stage 3 (moderate) Edema Fracture, humerus Hearing loss, bilateral History of PA (myocardial infarction) Hyperlipidemia Hyperparathyroidism Hypertension Kidney stones Osteoarthritis, multiple sites Pulmonary embolism (02/19/14) Vitamin D deficiency Surgical History History of knee replacement procedure of right knee S/P coronary artery stent placement Family History Aunt Breast cancer Mother Hypertension Kidney disease ESRD - did not go on dialysis Father Myocardial infarction Stroke Denies family history of Ovarian cancer Prostate cancer Diabetes Lung cancer Colorectal cancer Social History Smoking Status: Former smoker Tobacco Type: Cigarettes packs per day: 0.5; Years Smoked: 20; Smoking End Date: quit in his 30s; Second Hand Exposure: No; Hx Alcohol Use: No Hx Substance Use: No Preferred Language: Rwandan Communication Ability: Effective 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 Carton Sealer Required: No Beliefs That Will Affect Care: None marital status: Current Living Situation: Spouse current occupational status: retired How many Children do You have: 2 How many Children do You have Comment: 2 are Other Information That Helps Us Care for You: No other: 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, 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 [employer] Feels Safe at Home: Yes Safety Concerns: Feels Safe At This Time Childhood Exposure to Second-Hand Smoke: No caffeine: Yes (coffee) Dental Care, Regularly: No Physical Activity Frequency: Does not Exercise Seatbelt Use: always Sunscreen Use: Yes Assistive Devices: None Assistive Devices Comment: partial dentures upper and lower Review of Systems Review of Systems: All systems reviewed & are unremarkable except as noted in HPI & below Physical Exam Constitutional: WD/WN, vitals as above healthy appearing, cooperative and comfortable; not in distress Eyes: PERRL, conjunctivae normal, anicteric sclerae ENMT: Ears: + hearing impairment (wears heariing aids) Respiratory: normal respiratory effort, lungs clear to auscultation Cardiovascular: Rate/Rhythm: regular rate and regular rhythm Vessels: femoral pulses present, posterior tibial pulses present, dorsalis pedis pulses present and radial pulses present; + abnormal peripheral pulses Extremities: normal capillary refill and + edema Gastrointestinal (Abdomen): normal bowel sounds, soft, nontender, no hepatosplenomegaly Musculoskeletal: no cyanosis or clubbing, extremities motor strength 5/5 Skin: + erythema (confluent, warm LLE) Neurologic: moves all extremities and awake; no focal motor deficits and not confused Psychiatric: A+Ox3, euthymic affect Results & Data ([facility]) Vital Signs (Past 12 Hours) Vital Signs Temp Pulse Pulse Resp BP Pulse Ox 12/13/20 11:07 36.5 C 57 L 18 134/74 95 12/13/20 10:07 59 L 12/13/20 07:44 36.4 C L 59 L 20 144/80 H 93 12/13/20 03:47 36.7 C 57 L 16 144/62 H 95
[2020-12-13] MEDS: ENOXAPARIN INJ 40 MG/0.4 ML SYR SQ SCH (15:51)
[2020-12-13] MEDS ORDERED: MEROPENEM CONSULT ACITVE PRN (18:30)
--- NOTE | 2020-12-13 19:05 | Hospitalist Progress Note ---
Date of Service December 13, 2020 Assessment & Plan (1) Cellulitis of left lower leg: admitted 11/24 to 11/29 at [facility]. presumed pathogen of LLE cellulitis during that visit - group G strep, as this had grown in 1/4 blood culture bottles during that hospital stay. clinically improved with IV rocephin/vanco. seen by [facility] telehealth - amoxicillin advised along with elevation & compression. d/c home on 14 day course of amoxicillin. by report the LLE cellulitis improved but never fully resolved. he received dalvance this past Friday12/08/20 in the ER which will provide 1 week of MSSA and MRSA coverage. 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; again he received dalvance 12/08 and should cover for 11 more days continue elevation continue diuretics pending additional Trees[facility]ELO consultation, still not in the system (2) Streptococcal bacteremia: group G strep, 1/4 bottles during previous admission repeat blood cx's 11/25 were negative has had 10+ days of effective Rx for group G strep between IV rocephin during the prior admission and po amoxicillin post-d/c no signs/symptoms of systemic infection today crp is slighlty up (3) Edema: cont torsemide no evidence of DVT LLE his weight is down considerably from last hospitalization, and his left foot edema is overall better (4) Chronic diastolic CHF (congestive heart failure): compensated (5) CAD in [place] artery: no ischemic symptoms at this time (6) Abnormal glucose: HbA1c 6.1% - c/w preDM. change diet to DM diet. has been controlled with dietary control alone. could be contributing to refractoriness of his LLE cellulitis (7) Chronic kidney disease, stage 3 (moderate): Cr and CrCL today at baseline (8) Hyperlipidemia: statin (9) Hypertension: cont home meds (10) Tinea pedis: left foot - interdigital ketoconazole cream BID (11) DVT prophylaxis: lovenox daily Admission and Anticipated Discharge Date Admission Date: December 12, 2020 Subjective pt is feeling well still with redness and pain to the left lower leg, thinks its worse that when he left initially no improvement increasing dosing of cefepime will change to meropenem at this point time Review of Systems Review of Systems: Mild distress and fatigue no headache, no visual changes no speech or swallowing issues no chest pain, pressure or palpitations no shortness of breath, cough or wheezes no abdominal pain, nausea or vomiting, diarrhea or constipation no dysuria, hematuria or frequency no focal joint pain or swelling no back pain, CVA tenderness or radicular pain still with erythema and tenderness to leg no focal signs of weakness or numbness or altered sensation no complaints of anxiety or depression.. Physical Exam Physical Exam: The patient appeared well nourished and normally developed. Vital signs as documented. Head exam is normocephalic atraumatic Neck is without JVD, thyromegaly, or carotid bruits. Lungs are clear to auscultation, no focal loss of breath sounds Cardiac exam, Rhythm is regular.. No murmurs, rubs or gallops. Abdominal exam reveals normal bowel sounds, soft non tender, no masses Extremities are nonedematous and both pedal pulses are present Neurologic exam is alert and oriented, no focal loss of strength or sensation Skin is with erythema and warmth to lower extremity Psychologically is without concerns for anxiety or depression Results & Data Results & Data ([facility]) Vital Signs (Past 12 Hours) Vital Signs Temp Pulse Pulse Resp BP Pulse Ox 12/13/20 14:57 97.5 F L 58 L 20 146/79 H 94 12/13/20 11:07 97.7 F 57 L 18 134/74 95 12/13/20 10:07 59 L 12/13/20 07:44 97.5 F L 59 L 20 144/80 H 93 PG Care Time/CCT Total # of Minutes Spent Total Time Spent with Patient: Total time spent is greater than 50% in c oordination of care (as documented) at patient's floor/unit and/or counseling patient: Coding Level of Care Code 92771 Subseq Hosp Care Lvl 2 Diagnoses Cellulitis of left lower leg L03.116 Streptococcal bacteremia R78.81; B95.5 Edema R60.9 Chronic diastolic CHF (congestive heart failure) I50.32 CAD in [place] artery I25.10 Abnormal glucose R73.09 Chronic kidney disease, stage 3 (moderate) N18.3 Hyperlipidemia E78.5 Hypertension I10 Tinea pedis B35.3 DVT prophylaxis Z29.9
[2020-12-13] MEDS: MEROPENEM 500 MG in SYRINGE 0 ML IV SCH (20:12)
[2020-12-14] MEDS: MEROPENEM 500 MG in SYRINGE 0 ML IV SCH ×3 (05:37→21:00)
[2020-12-14 07:02] LABS: BUN Creatinine Ratio 25.3 (10-20); C Reactive Protein 2.01 mg/dl (0-0.29); Calcium 8.6 mg/dl (8.5-10.1); Creatinine Clr Calc Pharmacy 46.9 ml/min; Est GFR (African American) 57.1 ml/min; Est GFR (Non-African American) 49.3 ml/min
[2020-12-14] MEDS: ASPIRIN 81 MG ECTAB PO SCH (08:21)
[2020-12-14] MEDS: METOPROLOL SUCC 25MG EXT REL TAB PO SCH (08:21)
[2020-12-14] MEDS: SACCHAROMYCES BOULARDII 250 MG CAP PO SCH (08:21)
[2020-12-14] MEDS: TORSEMIDE 10 MG TAB PO SCH (08:21)
[2020-12-14] MEDS: KETOCONAZOLE 2% CR 15 GM TUBE EXT SCH ×2 (08:21→20:53)
[2020-12-14] MEDS: ATORVASTATIN 40 MG TAB PO SCH (08:21)
[2020-12-14] MEDS: ENOXAPARIN INJ 40 MG/0.4 ML SYR SQ SCH (17:36)
[2020-12-14] MEDS ORDERED: LINEZOLID CONSULT ACTIVE PRN (18:11)
--- NOTE | 2020-12-14 18:11 | Hospitalist Progress Note ---
Date of Service December 14, 2020 Assessment & Plan (1) Cellulitis of left lower leg: admitted 11/24 to 11/29 at [facility]. presumed pathogen of LLE cellulitis during that visit - group G strep, as this had grown in 1/4 blood culture bottles during that hospital stay. clinically improved with IV rocephin/vanco. seen by [facility] telehealth - amoxicillin advised along with elevation & compression. d/c home on 14 day course of amoxicillin. by report the LLE cellulitis improved but never fully resolved. he received dalvance this past Friday12/08/20 in the ER which will provide 1 week of MSSA and MRSA coverage. 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 Patient is currently still in the honeymoon from his Dalvance on 12/08 which should last to 12/15 (2) Streptococcal bacteremia: group G strep, 1/4 bottles during previous admission repeat blood cx's 11/25 were negative has had 10+ days of effective Rx for group G strep between IV rocephin during the prior admission and po amoxicillin post-d/c no signs/symptoms of systemic infection today crp is slighlty up (3) Edema: cont torsemide no evidence of DVT LLE his weight is down considerably from last hospitalization, and his left foot edema is overall better (4) Chronic diastolic CHF (congestive heart failure): compensated (5) CAD in [place] artery: no ischemic symptoms at this time (6) Abnormal glucose: HbA1c 6.1% - c/w preDM. change diet to DM diet. has been controlled with dietary control alone. could be contributing to refractoriness of his LLE cellulitis (7) Chronic kidney disease, stage 3 (moderate): Cr and CrCL today at baseline (8) Hyperlipidemia: statin (9) Hypertension: cont home meds (10) Tinea pedis: left foot - interdigital ketoconazole cream BID (11) DVT prophylaxis: lovenox daily Admission and Anticipated Discharge Date Admission Date: December 12, 2020 Subjective Patient feels has had improvement of his leg discomfort and redness after switching to the meropenem his also agrees he is at the bedside. She is willing to have the patient to be observed for an additional day to see if the redness continues to recede. Did discuss the infectious disease consultation [facility]. Review of Systems Review of Systems: Mild distress and fatigue no headache, no visual changes no speech or swallowing issues no chest pain, pressure or palpitations no shortness of breath, cough or wheezes no abdominal pain, nausea or vomiting, diarrhea or constipation no dysuria, hematuria or frequency no focal joint pain or swelling no back pain, CVA tenderness or radicular pain still with erythema and tenderness to leg less than 1 day prior no focal signs of weakness or numbness or altered sensation no complaints of anxiety or depression.. Cardiovascular: + edema (LLE - using compression stockings; improved but ongoing) Physical Exam Physical Exam: The patient appeared well nourished and normally developed. Vital signs as documented. Head exam is normocephalic atraumatic Neck is without JVD, thyromegaly, or carotid bruits. Lungs are clear to auscultation, no focal loss of breath sounds Cardiac exam, Rhythm is regular.. No murmurs, rubs or gallops. Abdominal exam reveals normal bowel sounds, soft non tender, no masses Extremities are nonedematous and both pedal pulses are present Neurologic exam is alert and oriented, no focal loss of strength or sensation Skin is with erythema and warmth to lower extremity to be improving Psychologically is without concerns for anxiety or depression Results & Data Results & Data ([facility]) Vital Signs (Past 12 Hours) Vital Signs Temp Pulse Pulse Resp BP Pulse Ox 12/14/20 15:23 97.9 F 55 L 20 143/75 H 96 12/14/20 11:38 98.1 F 59 L 20 174/74 H 95 12/14/20 08:20 67 12/14/20 07:49 57 L 12/14/20 07:23 97.5 F L 56 L 18 168/77 H 95 PG Care Time/CCT Total # of Minutes Spent Total Time Spent with Patient: Total time spent is greater than 50% in coordination of care (as documented) at patient's floor/unit and/or counseling patient: Coding Level of Care Code 63152 Subseq Hosp Care Lvl 2 Diagnoses Cellulitis of left lower leg L03.116 Streptococcal bacteremia R78.81; B95.5 Edema R60.9 Chronic diastolic CHF (congestive heart failure) I50.32 CAD in [place] artery I25.10 Abnormal glucose R73.09 Chronic kidney disease, stage 3 (moderate) N18.3 Hyperlipidemia E78.5 Hypertension I10 Tinea pedis B35.3 DVT prophylaxis Z29.9
[2020-12-14] MEDS: LINEZOLID 600 MG TAB PO SCH (20:53)
[2020-12-15] MEDS: MEROPENEM 500 MG in SYRINGE 0 ML IV SCH (05:52)
[2020-12-15 08:40] LABS: Hematocrit (blood only) 42.4 % (42-52); Hemoglobin 14.3 g/dL (14.0-18.0); Mean Corpuscular Hemoglobin 32.8 pg (25-34); Mean Corpuscular Hgb Conc 33.7 g/dL (32-36); Mean Corpuscular Volume 97.2 fL (80-100); Mean Platelet Volume 10.4 fL (7.4-10.4); Platelet Count 241 K/uL (130-400); RDW Coefficient of Variation 13.1 % (11.5-14.5); RDW Standard Deviation 46.4 fL (36.4-46.3); Red Blood Count 4.36 M/uL (4.7-6.1); White Blood Count 8.63 K/uL (4.8-10.8)
[2020-12-15] MEDS: METOPROLOL SUCC 25MG EXT REL TAB PO SCH (08:48)
[2020-12-15] MEDS: SACCHAROMYCES BOULARDII 250 MG CAP PO SCH (08:50)
[2020-12-15] MEDS: ATORVASTATIN 40 MG TAB PO SCH (08:50)
[2020-12-15] MEDS: KETOCONAZOLE 2% CR 15 GM TUBE EXT SCH (08:50)
[2020-12-15] MEDS: ASPIRIN 81 MG ECTAB PO SCH (08:50)
[2020-12-15] MEDS: LINEZOLID 600 MG TAB PO SCH (08:50)
[2020-12-15] MEDS: TORSEMIDE 10 MG TAB PO SCH (08:50)
[2020-12-15 09:08] LABS: BUN Creatinine Ratio 25.9 (10-20); Calcium 9.2 mg/dl (8.5-10.1); Creatinine Clr Calc Pharmacy 44.5 ml/min; Est GFR (African American) 53.6 ml/min; Est GFR (Non-African American) 46.3 ml/min; Potassium 3.9 mmol/L (3.5-5.1)
--- NOTE | 2020-12-15 18:07 | Discharge Summary ---
Date of Service December 15, 2020 Admission HPI Per Admitting Provider 85yo male with recent hospital admission for LLE cellulitis and group G strep bacteremia (11/24 to 11/29) - discharged home on amoxicillin - presents with worsening erythema and tenderness of LLE starting this past evening into Friday. States the erythema and edema of the LLE had improved since his hospitalization but never fully resolved. Had seen his PCP and it was felt things were slowly improving. However, the erythema worsened and on Friday he presented to our ER for evaluation. [place] to be a dalvance candidate and was given such, then d/c home. He still is taking the amoxicillin for his group G strep bacteremia. Despite the dalvance he has noted no clinical improvement. The LLE over the plata is still very erythematous and tender. Denies left knee or left ankle pain. His appetite is excellent, denies fever or chills, denies diarrhea, denies any COVID symptoms. Principal Diagnosis left lower extremity cellulitis Discharge Exam The patient appeared well Vital signs as documented. Lungs are clear to auscultation and appear unlabored Cardiac exam, Rhythm is regular.. No murmurs, rubs or gallops. Abdominal exam reveals normal bowel sounds, soft non tender, no masses Extremities are nonedematous and both pedal pulses are normal. Neurologic exam is alert and oriented, no focal loss of strength or sensation Skin is with erythema and swelling to left lower extremity Psychologically is without concerns for anxiety or depression. Discharge Data Allergies Allergy/AdvReac Type Severity Reaction Status Date / Time No Known Allergies Allergy Verified 12/11/20 10:17 Consultations 12/11/20 11:41 ED Decision to Admit Stat 12/11/20 14:46 Consult Infectious Diseases Routine 12/12/20 17:59 Consult Vascular Surgery Routine Ordered Studies 12/11/20 09:47 US venous doppler LE LT Stat 12/11/20 14:46 US arterial duplex LE LT Routine Hospital Course (1) Cellulitis of left lower leg: admitted 11/24 to 11/29 at [facility]. presumed pathogen of LLE cellulitis during that visit - group G strep, as this had grown in 1/4 blood culture bottles during that hospital stay. clinically improved with IV rocephin/vanco. seen by [facility] telehealth - amoxicillin advised along with elevation & compression. d/c home on 14 day course of amoxicillin. by report the LLE cellulitis improved but never fully resolved. he received dalvance this past Friday12/08/20 in the ER which will provide 1 week of MSSA and MRSA coverage. 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 Patient is currently still in the honeymoon from his Dalvance on 12/08 which should last to 12/15 will recommend thigh high [place] hose to help reduce swelling encourage elevatin (2) Streptococcal bacteremia: group G strep, 1/4 bottles during previous admission repeat blood cx's 11/25 were negative has had 10+ days of effective Rx for group G strep between IV rocephin during the prior admission and po amoxicillin post-d/c no signs/symptoms of systemic infection crp is slighlty up (3) Edema: cont torsemide no evidence of DVT LLE his weight is down considerably from last hospitalization, and his left foot edema is slightly increased will ask for two doses of torsemide daily for 5 days and use of teds (4) Chronic diastolic CHF (congestive heart failure): compensated (5) CAD in [place] artery: no ischemic symptoms at this time (6) Abnormal glucose: HbA1c 6.1% - c/w preDM. change diet to DM diet. has been controlled with dietary control alone. could be contributing to refractoriness of his LLE cellulitis (7) Chronic kidney disease, stage 3 (moderate): Cr and CrCL today at baseline (8) Hyperlipidemia: statin (9) Hypertension: cont home meds (10) Tinea pedis: left foot - interdigital ketoconazole cream BID Total Time Total Time Spent Total Time Spent (In Minutes): It required greater than 30 minutes to prepare this patient for discharge Discharge Plan Discharge Items Patient Disposition: Home - Self-Care Reason For Visit: RECURRENT LLE CELLULITIS Discharge Diagnosis: left lower extremity cellutis Activity: Per Instructions section Activity Comment: elevate legs when resting Non-emergency contact: Primary Care Provider Call non-emergency contact if: you have any medication questions, your symptoms worsen and you have a fever Follow-up/Referrals: Saadia Curtis MD [Primary Care Provider] - 12/20/20 11:30 am (If you have any question or need to change this appointment, please call [phone].) Diet: Low Sodium (2gm) Addtl Attending Provider Instructions: Elevate legs as much as possible wear compressive stocking for at least one week have a low salt diet limit fluid intake for five day take additional torsemide at noon, after 5 days return to your normal once a day Pending Studies at Discharge: No Stand-Alone Forms: My anywayanyday, Smoking Cessation Medications and DC Order Prescriptions: New linezolid 600 mg Tablet 600 mg PO BID Qty: 20 RF: 0 levofloxacin 750 mg tablet 750 mg PO DAILY 10 Days Qty: 10 RF: 0 Continued torsemide 10 mg tablet 10 mg PO DAILY Qty: 90 RF: 3 ergocalciferol (vitamin D2) 1,250 mcg (50,000 unit) capsule 1,250 mcg PO .COMPLEX Qty: 21 RF: 0 atorvastatin 80 mg tablet 40 mg PO QAM Qty: 45 RF: 3 metoprolol succinate 25 mg tablet extended release 24 hr 25 mg PO QAM Qty: 90 RF: 3 echinacea purpurea extract [echinacea] 125 mg Tablet 0 mg PO UD PRN (Reason: for preventrion of colds) RF: 0 aspirin [Aspirin Low Dose] 81 mg Tablet,Delayed Release (Dr/Ec) 81 mg PO DAILY RF: 0 Saccharomyces boulardii 250 mg capsule 250 mg PO DAILY 14 Days Qty: 14 RF: 0 Discontinued amoxicillin 500 mg Capsule 500 mg PO TID 14 Days Qty: 42 RF: 0 Discharge Orders: Discharge Order (Routine); Ordered 12/15/20 Ordered By: Woodrow Stinson Admission Data Admit Date/Time: 12/12/20 17:58 Attending Provider: Woodrow Stinson Admit Provider: Umesh Callejas Primary Care Provider: Saadia Curtis Other Providers: Umesh Callejas ; Isai Banks ; Rosa Maria Samson ; Darrell Carrizales I. ; Joesph Trinidad II ; Carmen Velazquez ; Tito Paris ; Sukumar Paulino Other Interventions: Discharge Summary Assessment (RN) Last Done: 12/15/20 11:24 Coding Level of Care Code D/C Day Management >30 mins Diagnoses Cellulitis of left lower leg L03.116 Streptococcal bacteremia R78.81; B95.5 Edema R60.9 Chronic diastolic CHF (congestive heart failure) I50.32 CAD in [place] artery I25.10 Abnormal glucose R73.09 Chronic kidney disease, stage 3 (moderate) N18.3 Hyperlipidemia E78.5 Hypertension I10 Tinea pedis B35.3
== END 2020-12-15 11:55 | disposition home or self-care (01) ==
LOC: ED 09:13 → 2N 09:13 → SUATTDRO 11:48 → 2N 13:50

== ENCOUNTER 2023-10-20 00:47 | Inpatient (IN) ==
[2023-10-20 01:36] LABS: Hemoglobin 14.2 g/dl (14.0-18.0); Mean Corpuscular Hemoglobin 33.4 pg (25.0-34.0); Mean Corpuscular Hgb Conc 34.6 g/dL (32.0-36.0); Mean Corpuscular Volume 96.5 fL (80.0-100.0); Mean Platelet Volume 10.6 fL (9.4-12.4); Platelet Count 191 K/uL (130-400); RDW Coefficient of Variation 12.8 % (11.5-14.5); RDW Standard Deviation 45.4 fL (36.4-46.3); Red Blood Count 4.25 M/uL (4.70-6.10); White Blood Count 13.25 K/ul (4.8-10.8)
[2023-10-20 01:50] LABS: Albumin Globulin Ratio 1.6 (0.9-2); BUN Creatinine Ratio 23.3 (10-20); Bilirubin,Total 1.3 mg/dl (0.2-1.0); Calcium 9.2 mg/dl (8.6-10.3); Creatinine Clr Calc Pharmacy 41.3 ml/min; Est GFR (African American) 47.5 ml/min; Globulin 2.5 gm/dl (2.5-4.0); Potassium 4.2 mmol/L (3.5-5.1); Total Protein 6.5 gm/dl (6.0-8.3)
[2023-10-20 01:55] LABS: Basophils # (auto) 0.02 K/uL (0.00-0.20); Basophils % (auto) 0.2 %; Eosinophils # (auto) 0.06 K/uL (0.00-0.50); Eosinophils % (auto) 0.5 %; Immature Granulocytes # (auto) 0.06 K/uL (0.01-0.20); Immature Granulocytes % (auto) 0.5 %; Lymphocytes # (auto) 0.68 K/uL (1.20-3.40); Lymphocytes % (auto) 5.1 %; Monocytes # (auto) 0.17 K/uL (0.11-0.59); Monocytes % (auto) 1.3 %; Neutrophils # (auto) 12.26 K/uL (1.40-6.50); Neutrophils % (auto) 92.4 %
[2023-10-20 01:56] LABS: Troponin I High Sensitivity 8.7 pg/ml (0-20)
[2023-10-20 02:05] LABS: Partial Thromboplastin Ratio 0.8; Partial Thromboplastin Time 23 Seconds (21-31); Prothrombin Time 10.7 Seconds (9.0-12.0)
[2023-10-20 02:08] LABS: Adenovirus PCR Not Detected (NotDetected); Bordetella parapertussis PCR Not Detected (NotDetected); Bordetella pertussis PCR Not Detected (NotDetected); Chlamydia pneumoniae PCR Not Detected (NotDetected); Coronavirus 229E PCR Not Detected (NotDetected); Coronavirus CoV-2 (COVID19)PCR Not Detected (NotDetected); Coronavirus HKU1 PCR Not Detected (NotDetected); Coronavirus NL63 PCR Not Detected (NotDetected); Coronavirus OC43PCR Not Detected (NotDetected); Human Metapneumovirus PCR Not Detected (NotDetected); Influenza A PCR Not Detected (NotDetected); Influenza B PCR Not Detected (NotDetected); Mycoplasma pneumoniae PCR Not Detected (NotDetected); Parainfluenza Virus 1 PCR Not Detected (NotDetected); Parainfluenza Virus 2 PCR Not Detected (NotDetected); Parainfluenza Virus 3 PCR Not Detected (NotDetected); Parainfluenza Virus 4 PCR Not Detected (NotDetected); Respiratory Syncytial VirusPCR Not Detected (NotDetected); Rhinovirus/Enterovirus PCR Not Detected (NotDetected)
[2023-10-20] MEDS: cefTRIAXone SODIUM 2,000 MG/50 ML BAG IV STA (02:13)
[2023-10-20 02:32] LABS: Appearance Urine Clear (Clear); Bacteria Urine Automated None Seen (None Seen); Bilirubin Urine Negative (Negative); Blood Urine Negative (Negative); Cast Urine Automated 0-2 /lpf (0-2); Color Urine Yellow; Epithelial Cell Urine Auto 0-2 /hpf (0-2); Glucose Urine UA Negative (Negative); Ketones Urine 1+ (Negative); Leukocyte Esterase Urine Negative (Negative); Nitrite Urine Negative (Negative); Protein Urine Trace (Negative); RBC Urine Automated 0-2 /hpf (0-2); Specific Gravity Urine 1.018 (1.000-1.030); Urobilinogen Urine Negative (Negative); WBC Urine Automated 0-5 /hpf (0-5); pH Urine 7.5 (4.5-7.5)
--- NOTE | 2023-10-20 03:47 | Emergency Department Note ---
Impression & Plan Rigors, Leukocytosis, Elevated procalcitonin ED Provider Note ED Provider Note NAME: JHON TEMPLETON AGE:88 SEX: Male : 1935 ARRIVES VIA: EMS INFORMANT: Patient, ED PROVIDER(s): Naina Ta DO CHIEF COMPLAINT: Shaking chills HPI: This is an 88-year-old man who presents from home with his at bedside due to concern for shaking chills and possible infection. states the last time he had an episode similar to this evening where he had shaking chills to this extent he ultimately became septic from cellulitis. She states the cellulitis involved in his legs but was not present initially. She states she has not noticed any redness, rash, or sores. He denies any recent trauma. He denies any URI symptoms, chest pain, abdominal pain, change in urine or change in stools. No recent known sick contacts. No recent travel. No new medications. PAST MEDICAL HISTORY:See Below PAST SURGICAL HISTORY:See Below FAMILY HISTORY:See Below SOCIAL HISTORY:See Below HOME MEDICATIONS:See Below ALLERGIES:See Below VITALS:See Below PHYSICAL EXAMINATION: GENERAL: alert, ill appearing, well nourished, no distress, non-toxic EYE EXAM: normal conjunctiva, PERRL and EOM's grossly intact OROPHARYNX: no exudate, no erythema, lips, buccal mucosa, and tongue normal and mucous membranes are mildly dry NECK: supple, no nuchal rigidity, no adenopathy, non-tender LUNGS: Clear to auscultation. Normal chest wall mechanics, no w/r/r HEART: no murmurs, S1 normal and S2 normal ABDOMEN: abdomen soft, non-tender, normo-active bowel sounds, no masses, no rebound or guarding. BACK: Back is symmetrical on inspection and there is no deformity, no midline tenderness, no CVA tenderness. SKIN: no rashes, petechiae, orbruising UPPER EXTREMITIES: upper extremities are grossly normal. FROM, nml pulses b/l. LOWER EXTREMITIES: No pitting edema. FROM, nml pulses b/l. NEURO EXAM: Normal sensorium, cranial nerves II-XII grossly intact, normal speech, no facial droop,nogross weakness of arms, no gross weakness of legs. Gross sensation intact. No ataxia. Vital Signs: reviewed and remarkable Differential Diagnosis: uti, viral syndrome, pna, cellulitis, sbo, pe, colitis, diverticulitis, sinusitis, as well as others were considered MEDICAL DECISION MAKING: This is an 88 yo male who presents to the ER with rigors that began at home. concerned for evolving infection given prior similar episode. VS stable on arrival. Labs drawn and sent, IV established, EKG and CXR performed and interpreted at bedside, and patient placed on telemetry. Cultures added, respiratory viral panel obtained, urine collected additionally. Patient given IV rocephin after review of prior similar presentation. No obvious evidence of cellulitis on exam. Mild leukocytosis noted and mild procalcitonin elevation. VS stable while in the ER. Case discussed with the hospitalist team for additional evaluation and mgmt. Patient did not appear significantly dehydration and so was only given gentle IVF hydration due to hx of CHF. Consultation(s): 406: Discussed with Dr. Covarrubias, [place] hospitalist team, for additional evaluation and mgmt. ER Treatment Provided: See below Diagnostics Interpreted By Me: -ECG: Normal sinus at 68, normal axis, normal intervals, nonspecific ST/T wave changes, baseline aberrancy noted -Cardiac Monitoring: An order was placed for continuous cardiac monitoring. The monitor shows a rate of 80 with normal sinus rhythm. -Laboratory studies: As stated above and show below. -Imaging studies: X-ray Chest: A single view study of the chest was reviewed and was negative for cardiomegaly, focal infiltrate, effusion, pulmonary edema, or wide mediastinum. Triage Nursing Note Reviewed Prior/Outside Records Reviewed - prior DC summary reviewed Past Med/Surg History Medical History Venous insufficiency Peripheral arterial disease Cellulitis of left lower leg Admitted 10/2020 [facility] Edema CAD in [place] artery Chronic kidney disease, stage 3 (moderate) Hearing loss, bilateral Hyperlipidemia Hyperparathyroidism Hypertension Osteoarthritis, multiple sites Vitamin D deficiency Pulmonary embolism (02/19/14) Kidney stones Fracture, humerus History of [place] (myocardial infarction) Surgical History S/P coronary artery stent placement History of knee replacement procedure of right knee Family History Aunt Breast cancer Mother Hypertension Kidney disease ESRD - did not go on dialysis Father Myocardial infarction Stroke Denies family history of Ovarian cancer Prostate cancer Diabetes Lung cancer Colorectal cancer Social History Smoking Status: Never smoker Tobacco Type: Cigarettes packs per day: 0.5; Second Hand Exposure: No; Do You Dip or Chew Tobacco: No; Hx Alcohol Use: Yes Alcohol type: beer Alcohol Intake Frequency: 2-3 x/Week Alcohol Intake Frequency Comment: no etoh since his recent hospital stay Hx Substance Use: No Preferred Language: Georgian Communication Ability: Effective Visual Impairment: Limited Hearing Ability: Use of Hearing Aid Global Sales Director Required: No Beliefs That Will Affect Care: None marital status: Current Living Situation: Spouse current occupational status: retired How many Children do You have: 4 How many Children do You have Comment: 2 are 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: 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, 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 [employer] Feels Safe at Home: Yes Childhood Exposure to Second-Hand Smoke: Yes Diet: regular caffeine: Yes (coffee) during the past year weight has: remained stable Dental Care, Regularly: No Physical Activity Frequency: Daily Seatbelt Use: always Sunscreen Use: No Do you think of yourself as: straight/heterosexual Gender Identity: Male Assistive Devices: Glasses and Hearing Aid - Bilateral Allergies Allergies Allergy/AdvReac Type Severity Reaction Status Date / Time No Known Drug Allergies Allergy Verified 10/20/23 09:43 Home Meds Home Medications Medication Instructions Recorded Confirmed aspirin 81 mg tablet,delayed 81 mg PO DAILY 10/30/18 10/20/23 release (Steven Low Dose Aspirin) Echinacea purpurea extract 125 mg 125 mg PO UD PRN for preventrion 12/29/18 10/20/23 tablet (echinacea) of colds ergocalciferol (vitamin D2) 1,250 1,250 mcg PO MONTHLY 10/20/23 10/20/23 mcg (50,000 unit) capsule Previous Rx's Medication Instructions Recorded atorvastatin 80 mg tablet 40 mg (1/2 x 80 mg) PO QAM #45 tabs 12/12/22 metoprolol succinate 25 mg 25 mg PO QAM #90 tabs 12/12/22 tablet,extended release 24 hr torsemide 10 mg tablet 10 mg PO DAILY #90 tabs 07/28/23 Results & Data (ED) Vital Signs Vital Signs - 24 hr 10/20/23 00:53 10/20/23 00:58 10/20/23 01:00 Temperature 36.9 C Temperature Source Oral Pulse Rate 69 67 68 Respiratory Rate 22 20 Respiratory Effort / Characteristics Non-Labored Spontaneous Respiratory Depth Normal Blood Pressure 150/62 H 150/62 H Blood Pressure Mean 91 91 Pulse Oximetry 97 96 Oxygen Delivery Method Room Air Room Air Sepsis Recent Fever Within 48 Hours No Sepsis New/Unexplained Change in Mental Status N/A Sepsis Action Taken by Nursing No Action Required 10/20/23 02:30 10/20/23 04:10 10/20/23 04:52 Temperature Temperature Source Pulse Rate 70 72 Respiratory Rate 18 24 Respiratory Effort / Characteristics Respiratory Depth Blood Pressure 142/70 H 148/76 H Blood Pressure Mean 100 100 Pulse Oximetry 92 90 93 Oxygen Delivery Method Room Air Sepsis Recent Fever Within 48 Hours Sepsis New/Unexplained Change in Mental Status Sepsis Action Taken by Nursing Laboratory Data 10/20/23 11:47 10/20/23 11:47 Lab Results 10/20/23 10/20/23 10/20/23 Range/Units 01:01 01:05 01:46 WBC 13.25 H (4.8-10.8) K/ul RBC 4.25 L (4.70-6.10) M/uL Hgb 14.2 (14.0-18.0) g/dl Hct 41.0 L (42.0-52.0) % MCV 96.5 (80.0-100.0) fL MCH 33.4 (25.0-34.0) pg MCHC 34.6 (32.0-36.0) g/dL RDW Std Deviation 45.4 (36.4-46.3) fL RDW Coeff of Anjelica 12.8 (11.5-14.5) % Plt Count 191 (130-400) K/uL MPV 10.6 (9.4-12.4) fL Immature Gran % (Auto) 0.5 % Neut % (Auto) 92.4 % Lymph % (Auto) 5.1 % Toole % (Auto) 1.3 % Eos % (Auto) 0.5 % Baso % (Auto) 0.2 % Neut # (Auto) 12.26 H (1.40-6.50) K/uL Lymph # (Auto) 0.68 L (1.20-3.40) K/uL [place]ole # (Auto) 0.17 (0.11-0.59) K/uL Eos # (Auto) 0.06 (0.00-0.50) K/uL Baso # (Auto) 0.02 (0.00-0.20) K/uL Immature Gran # (Auto) 0.06 (0.01-0.20) K/uL PT 10.7 (9.0-12.0) Seconds INR 1.0 (0.9-1.1) APTT 23 (21-31) Seconds PTT Ratio 0.8 Sodium 139 (136-145) mmol/L Potassium 4.2 (3.5-5.1) mmol/L Chloride 106 (98-107) mmol/L Carbon Dioxide 25 (21-32) mmol/L Anion Gap 8 (3-11) BUN 35 H (6-23) mg/dl Creatinine 1.50 H (0.6-1.4) mg/dl Est Cr Clr Drug Dosing 41.3 ml/min Est GFR ( Amer) 47.5 ml/min Est GFR (Non-Af Amer) 41.0 ml/min BUN/Creatinine Ratio 23.3 H (10-20) Glucose 135 H (70-99(Fasting)) mg/dl Lactate 1.9 (0.4-2.0) mmol/L Calcium 9.2 (8.6-10.3) mg/dl Total Bilirubin 1.3 H (0.2-1.0) mg/dl AST 26 (13-39) U/L ALT 20 (7-52) U/L Alkaline Phosphatase 109 H (34-104) U/L Troponin I High Sens 8.7 (0-20) pg/ml Total Protein 6.5 (6.0-8.3) gm/dl Albumin 4.0 (3.4-5.0) gm/dl Globulin 2.5 (2.5-4.0) gm/dl Albumin/Globulin Ratio 1.6 (0.9-2) Lipase 32 (11-82) U/L Procalcitonin 0.54 H (0-0.5) ng/ml Urine Color Urine Appearance (Clear) Urine pH (4.5-7.5) Ur Specific [place] (1.000-1.030) Urine Protein (Negative) Urine Glucose (UA) (Negative) Urine Ketones (Negative) Urine Blood (Negative) Urine Nitrite (Negative) Urine Bilirubin (Negative) Urine Urobilinogen (Negative) Ur Leukocyte Esterase (Negative) Urine WBC (Auto) (0-5) /hpf Urine RBC (Auto) (0-2) /hpf U Hyaline Cast (Auto) (0-2) /lpf U Epithel Cells (Auto) (0-2) /hpf Urine Bacteria (Auto) (None Seen) Adenovirus (PCR) Not Detected (NotDetected) Anaplasma Smear See Comment Babesia Smear See Comment B. pertussis DNA (PCR) Not Detected (NotDetected) B.parapertussis DNA PCR Not Detected (NotDetected) C. pneumoniae DNA (PCR) Not Detected (NotDetected) Coronavirus OC43 (PCR) Not Detected (NotDetected) Coronavirus HKU1 (PCR) Not Detected (NotDetected) Coronavirus 229E (PCR) Not Detected (NotDetected) SARS-CoV-2 (PCR) Not Detected (NotDetected) Coronavirus NL63 (PCR) Not Detected (NotDetected) Human Metapneumovir PCR Not Detected (NotDetected) Influenza Type A (PCR) Not Detected (NotDetected) Influenza Type B (PCR) Not Detected (NotDetected) M. pneumoniae (PCR) Not Detected (NotDetected) Parainfluenza 1 (PCR) Not Detected (NotDetected) Parainfluenza 2 (PCR) Not Detected (NotDetected) Parainfluenza 3 (PCR) Not Detected (NotDetected) Parainfluenza 4 (PCR) Not Detected (NotDetected) RSV (PCR) Not Detected (NotDetected) Entero/Rhino (PCR) Not Detected (NotDetected) Streptococcus sp PCR DETECTED A (NotDetected) Bld Cult ID Panel PCR See PCR Comment (NotDetected) 10/20/23 10/20/23 Range/Units 02:21 03:22 WBC (4.8-10.8) K/ul RBC (4.70-6.10) M/uL Hgb (14.0-18.0) g/dl Hct (42.0-52.0) % MCV (80.0-100.0) fL MCH (25.0-34.0) pg MCHC (32.0-36.0) g/dL RDW Std Deviation (36.4-46.3) fL RDW Coeff of Anjelica (11.5-14.5) % Plt Count (130-400) K/uL MPV (9.4-12.4) fL Immature Gran % (Auto) % Neut % (Auto) % Lymph % (Auto) % [place]ole % (Auto) % Eos % (Auto) % Baso % (Auto) % Neut # (Auto) (1.40-6.50) K/uL Lymph # (Auto) (1.20-3.40) K/uL [place] # (Auto) (0.11-0.59) K/uL Eos # (Auto) (0.00-0.50) K/uL Baso # (Auto) (0.00-0.20) K/uL Immature Gran # (Auto) (0.01-0.20) K/uL PT (9.0-12.0) Seconds INR (0.9-1.1) APTT (21-31) Seconds PTT Ratio Sodium (136-145) mmol/L Potassium (3.5-5.1) mmol/L Chloride (98-107) mmol/L Carbon Dioxide (21-32) mmol/L Anion Gap (3-11) BUN (6-23) mg/dl Creatinine (0.6-1.4) mg/dl Est Cr Clr Drug Dosing ml/min Est GFR ( Amer) ml/min Est GFR (Non-Af Amer) ml/min BUN/Creatinine Ratio (10-20) Glucose (70-99(Fasting)) mg/dl Lactate 1.6 (0.4-2.0) mmol/L Calcium (8.6-10.3) mg/dl Total Bilirubin (0.2-1.0) mg/dl AST (13-39) U/L ALT (7-52) U/L Alkaline Phosphatase (34-104) U/L Troponin I High Sens (0-20) pg/ml Total Protein (6.0-8.3) gm/dl Albumin (3.4-5.0) gm/dl Globulin (2.5-4.0) gm/dl Albumin/Globulin Ratio (0.9-2) Lipase (11-82) U/L Procalcitonin (0-0.5) ng/ml Urine Color Yellow Urine Appearance Clear (Clear) Urine pH 7.5 (4.5-7.5) Ur Specific [place] 1.018 (1.000-1.030) Urine Protein Trace H (Negative) Urine Glucose (UA) Negative (Negative) Urine Ketones 1+ H (Negative) Urine Blood Negative (Negative) Urine Nitrite Negative (Negative) Urine Bilirubin Negative (Negative) Urine Urobilinogen Negative (Negative) Ur Leukocyte Esterase Negative (Negative) Urine WBC (Auto) 0-5 (0-5) /hpf Urine RBC (Auto) 0-2 (0-2) /hpf U Hyaline Cast (Auto) 0-2 (0-2) /lpf U Epithel Cells (Auto) 0-2 (0-2) /hpf Urine Bacteria (Auto) None Seen (None Seen) Adenovirus (PCR) (NotDetected) Anaplasma Smear Babesia Smear B. pertussis DNA (PCR) (NotDetected) B.parapertussis DNA PCR (NotDetected) C. pneumoniae DNA (PCR) (NotDetected) Coronavirus OC43 (PCR) (NotDetected) Coronavirus HKU1 (PCR) (NotDetected) Coronavirus 229E (PCR) (NotDetected) SARS-CoV-2 (PCR) (NotDetected) Coronavirus NL63 (PCR) (NotDetected) Human Metapneumovir PCR (NotDetected) Influenza Type A (PCR) (NotDetected) Influenza Type B (PCR) (NotDetected) M. pneumoniae (PCR) (NotDetected) Parainfluenza 1 (PCR) (NotDetected) Parainfluenza 2 (PCR) (NotDetected) Parainfluenza 3 (PCR) (NotDetected) Parainfluenza 4 (PCR) (NotDetected) RSV (PCR) (NotDetected) Entero/Rhino (PCR) (NotDetected) Streptococcus sp PCR (NotDetected) Bld Cult ID Panel PCR (NotDetected) Administered Medications Aspirin (Aspirin 81 Mg Ectab) 81 mg PO DAILY [facility] Stop: 11/19/23 08:59 Last Admin: 10/20/23 08:04 Dose: 81 mg Documented By: ARMAND Atorvastatin Calcium (Atorvastatin 40 Mg Tab) 40 mg PO QAM BARB Stop: 11/19/23 08:59 Last Admin: 10/20/23 08:04 Dose: 40 mg Documented By: ARMAND Diclofenac Sodium (Diclofenac Sod 1% Gel 100 Gm Tube) 2 gm EXT QID [facility]; Protocol Stop: 11/19/23 12:59 Last Admin: 10/20/23 21:02 Dose: Not Given Documented By: Admin: 10/20/23 21:01 Dose: 2 gm Documented By: Admin: 10/20/23 12:34 Dose: 2 gm Documented By: ARMAND Heparin Sodium (Porcine) (Heparin Sod 5,000 Unit/0.5 Ml Vial) 5,000 units SQ Q12 BARB Stop: 11/19/23 08:59 Last Admin: 10/20/23 21:02 Dose: 5,000 units Documented By: Admin: 10/20/23 08:05 Dose: 5,000 units Documented By: ARMAND Ceftriaxone Sodium 2,000 mg/ (Dextrose) 50 mls @ 100 mls/hr IV Q24H [facility]; Protocol Stop: 10/28/23 01:59 Last Infusion: 10/21/23 02:07 Dose: Infused Documented By: Admin: 10/21/23 01:36 Dose: 100 mls/hr Documented By: ALESSANDRO Metoprolol Succinate (Metoprolol Succ 25mg Ext Rel Tab) [facility] [place] Stop: 11/19/23 08:59 Last Admin: 10/20/23 08:04 Dose: 25 mg Documented By: ARMAND Torsemide (Torsemide 10 Mg Tab) 10 mg PO DAILY BARB Stop: 11/19/23 08:59 Last Admin: 10/20/23 08:04 Dose: 10 mg Documented By: ARMAND Discontinued Medications Ceftriaxone Sodium (Rocephin) 2,000 mg in 50 mls @ 100 mls/hr IV NOW STA Stop: 10/20/23 02:35 Last Infusion: 10/20/23 02:48 Dose: Infused Documented By: Admin: 10/20/23 02:13 Dose: 100 mls/hr Documented By: CHIN Sodium Chloride (Nss) 1,000 mls @ 80 mls/hr IV .[id number] BARB Stop: 10/20/23 17:14 Last Infusion: 10/20/23 17:17 Dose: Infused Documented By: Admin: 10/20/23 04:47 Dose: 80 mls/hr Documented By: CHIN Discharge Plan Visit Data Chief Complaint: Illness Stated Complaint: General Illness, Chills ED Provider: Naina Ta Discharge Problem: Rigors, Leukocytosis, Elevated procalcitonin Patient Disposition: Admitted As Inpatient Discharge Instructions Interventions: ED Discharge Assessment Last Done: 10/20/23 05:17
[2023-10-20] MEDS: SODIUM CHLORIDE 0.9% 1,000 ML IV SCH (04:47)
--- NOTE | 2023-10-20 05:04 | History & Physical Report ---
Date of Service October 20, 2023 Assessment & Plan (1) Rigors: Plan: - no clear source of infection; CXR without acute pathology per my read, UA without sign of infection, lactate wnl, mildly elevated procal and mild leukocytosis. Other than rigors, asymptomatic - does not meet SIRs criteria- leukocytosis>12 but otherwise no tachycardia, febrile, tachypneic - s/p ceftriaxone in the ED; will cover for 24 hours - Blood cultures pending - Tick borne pending - mildly hypovolemic; noted history fo HFpEF. Will give gentle hydration with NS@80ml/hr x 1L (2) Hypovolemia: Plan: IVF as per above (3) Chronic diastolic CHF (congestive heart failure): Plan: - follows with cardiology - continue toresmide (4) S/P coronary artery stent placement: Plan: - follows with cardiology - continue metoprolol (5) Chronic kidney disease, stage 3 (moderate): Plan: - follows with nephrology - creatine= 1.5, slightly above recent baseline ~1.4. (6) Hyperlipidemia: Plan: - continue statin Plan Code: Full Diet: Heart Healthy VTE Prophylaxis: Heparin q12 History of Present Illness Primary Care Provider: Saadia Curtis MD 88 year old male with a past medical history of CKD 3a, HTN, CAD s/p [place] STEMI s/p PCI, PAD, HFpEF, Hyperparathyroidism, HLD presenting with concern for rigors. was at bedside and provided much of the history. Was in his usual state of health up until 2330 this evening. Went to go to bed and developed rigors. No other symptoms. Denies cough, congestion, nausea/vomiting, diarrhea, dysuria. No new rashes. History of bacteremia secondary to cellulitis and had similar presentation with rigors. ED Course Significant for: Leukocytosis- WBC= 13.25, Creatine= 1.5, procal= 0.54. UA unremarkable. Resp biofire negative. CXR per my read without acute pathology. S/p 2g ceftriaxone Allergies Allergy/AdvReac Type Severity Reaction Status Date / Time No Known Drug Allergies Allergy Verified 10/20/23 09:43 Home Medications Medication Instructions Recorded Confirmed Type aspirin 81 mg tablet,delayed 81 mg PO DAILY 10/30/18 10/20/23 History release (Steven Low Dose Aspirin) Echinacea purpurea extract 125 mg 125 mg PO UD PRN for preventrion 12/29/18 10/20/23 History tablet (echinacea) of colds atorvastatin 80 mg tablet 40 mg (1/2 x 80 mg) PO QAM #45 tabs 12/12/22 10/20/23 Rx metoprolol succinate 25 mg 25 mg PO QAM #90 tabs 12/12/22 10/20/23 Rx tablet,extended release 24 hr torsemide 10 mg tablet 10 mg PO DAILY #90 tabs 07/28/23 10/20/23 Rx ergocalciferol (vitamin D2) 1,250 1,250 mcg PO MONTHLY 10/20/23 10/20/23 History mcg (50,000 unit) capsule amoxicillin 500 mg tablet 1,000 mg (2 x 500 mg) PO TID 12 10/23/23 Rx days #72 tabs diclofenac sodium 1 % topical gel 2 g EXT QID #30 grams 10/23/23 Rx (Voltaren Arthritis Pain) Past Med/Surg History Medical History Venous insufficiency Peripheral arterial disease Cellulitis of left lower leg Admitted 10/2020 [facility] Edema CAD in [place] artery Chronic kidney disease, stage 3 (moderate) Hearing loss, bilateral Hyperlipidemia Hyperparathyroidism Hypertension Osteoarthritis, multiple sites Vitamin D deficiency Pulmonary embolism (02/19/14) Kidney stones Fracture, humerus History of [place] (myocardial infarction) Surgical History S/P coronary artery stent placement History of knee replacement procedure of right knee Family History Aunt Breast cancer Mother Hypertension Kidney disease ESRD - did not go on dialysis Father Myocardial infarction Stroke Denies family history of Ovarian cancer Prostate cancer Diabetes Lung cancer Colorectal cancer Social History Smoking Status: Never smoker Tobacco Type: Cigarettes packs per day: 0.5; Second Hand Exposure: No; Do You Dip or Chew Tobacco: No; Hx Alcohol Use: Yes Alcohol type: beer Alcohol Intake Frequency: 2-3 x/Week Alcohol Intake Frequency Comment: no etoh since his recent hospital stay Hx Substance Use: No Preferred Language: Amharic Communication Ability: Effective Visual Impairment: Limited Hearing Ability: Use of Hearing Aid Dockmaster Required: No Beliefs That Will Affect Care: None marital status: Current Living Situation: Spouse current occupational status: retired How many Children do You have: 4 How many Children do You have Comment: 2 are 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, 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 [employer] Feels Safe at Home: Yes Childhood Exposure to Second-Hand Smoke: Yes Diet: regular caffeine: Yes (coffee) during the past year weight has: remained stable Dental Care, Regularly: No Physical Activity Frequency: Daily Seatbelt Use: always Sunscreen Use: No Do you think of yourself as: straight/heterosexual Gender Identity: Male Assistive Devices: Glasses and Hearing Aid - Bilateral Review of Systems Review of Systems: As per above Physical Exam Physical Exam: Constitutional: well-appearing, no acute distress HEENT: NCAT, no conjunctival injection CV: regular rhythm, no murmur appreciated, extremities well-perfused, 1+ LE edema Resp: CTABL, no wheezes/rales/rhonchi appreciated, no increased work of breathing GI: soft, nondistended, nontender MSK: no gross deformities appreciated Skin: warm, dry, no rash appreciated Neuro: alert, oriented, no focal neurologic deficit appreciated Results & Data Results & Data Vital Signs (Past 12 Hours) Vital Signs Temp Pulse Resp BP Pulse Ox O2 Del Method 10/20/23 04:10 72 24 148/76 H 90 10/20/23 02:30 70 18 142/70 H 92 10/20/23 01:00 68 20 150/62 H 96 Room Air 10/20/23 00:58 67 10/20/23 00:53 36.9 C 69 22 150/62 H 97 Room Air Code Status & VTE Plan VTE Prophylaxis Plan VTE Prophylaxis will be ordered: Yes Supervising Physician Co-Signing Physician Notes Attending addendum: I have physically seen this patient, have supervised the medical residents activities, and agree with the H&P unless as otherwise noted. Assessment and Plan: Rigors- No clear Source at this time Follow-up cultures, urine and blood with sensitivities Tickborne panel pending Status post ceftriaxone from the ED, will cover empirically for the first 24 hours NSS at 80 mL/h x 1 L Hypovolemia/history chronic diastolic CHF- Hold torsemide 1 L NSS as noted above Status post coronary stent placement- Enzymes negative Continue metoprolol with hold parameters CKD stage III- Creatinine 1.5 with base around 1.4 Follow after IV fluids as noted above Resident Activity Tracking Resident Involvement: Resident Care Provided Care Provided: Adult Hospital Medicine (5) Chronic kidney disease, stage 3 (moderate) Chronic kidney disease stage 3 subtype: unspecified whether 3a or 3b Qualified Code(s): N18.30 - Chronic kidney disease, stage 3 unspecified (6) Hyperlipidemia Hyperlipidemia type: mixed hyperlipidemia Qualified Code(s): E78.2 - Mixed hyperlipidemia
--- NOTE | 2023-10-20 07:02 | XRay Report ---
XR chest 1V not portable HISTORY: 88 years-old Male illness acute shortness of breath COMPARISON: 12/11/2020 TECHNIQUE: AP view of the chest FINDINGS: Cardiomediastinal and hilar silhouettes are unchanged. Atherosclerosis of the aorta. No pneumothorax, pleural effusion, airspace consolidation or pulmonary edema. Degenerative changes of the shoulders a nd spine. IMPRESSION: No acute process. ACT 112: Negative or not required by law. The above report was generated using voice recognition software. It may contain grammatical, syntax o r spelling errors. Electronically signed by: Rocael Prakash M.D. 10/20/2023 7:01 AM
[2023-10-20] MEDS: ATORVASTATIN 40 MG TAB PO SCH (08:04)
[2023-10-20] MEDS: METOPROLOL SUCC 25MG EXT REL TAB PO SCH (08:04)
[2023-10-20] MEDS: TORSEMIDE 10 MG TAB PO SCH (08:04)
[2023-10-20] MEDS: ASPIRIN 81 MG ECTAB PO SCH (08:04)
[2023-10-20] MEDS: HEPARIN SOD 5,000 UNIT/0.5 ML VIAL SQ SCH (08:05)
--- NOTE | 2023-10-20 09:38 | Ultrasound Report ---
ABDOMINAL ULTRASOUND, RIGHT UPPER QUADRANT HISTORY: elevated procal/TB/ALP. COMPARISON: Abdomen and pelvis CT 10/30/2018. FINDINGS: Pancreas: Not well visualized due to overlying bowel gas. Liver: Large hepatic cyst within the left hepatic lobe measuring 12 x 9 x 9 cm. Gallbladder: No gallbladder wall thickening. No definite gallstones. CBD: 6 mm. Right kidney: No hydronephrosis. IMPRESSION: 1. No gallbladder wall thickening. No definite gallstones. 2. Left hepatic lobe cyst. ACT 112: Negative or not required by law. Electronically signed by: Augie Deal M.D. 10/20/2023 9:37 AM
--- NOTE | 2023-10-20 10:58 | Electrocardiogram Report ---
Test Reason : Blood Pressure : / mmHG Vent. Rate : 068 BPM Atrial Rate : 068 BPM P-R Int : 186 ms QRS Dur : 088 ms QT Int : 424 ms P-R-T Axes : 050 008 064 degrees QTc Int : 450 ms Normal sinus rhythm Nonspecific ST abnormality Abnormal ECG When compared with ECG of 11-DEC-2020 09:47, No significant change was found Confirmed by Brennen Tomlinson ([id number]) on 10/20/2023 10:58:26 AM Referred By: REFERRED SELF Confirmed By:Brennen Tomlinson
[2023-10-20 11:08] LABS: A calco-baum cmplx NotReported Not Detected (NotDetected); Bact fragilis Not Reported Not Detected (NotDetected); Blood Culture Id Panel See PCR Comment (NotDetected); C auris Not Reported Not Detected (NotDetected); Calbicans Not Reported Not Detected (NotDetected); Candida glabrata Not Reported Not Detected (NotDetected); Candida krusei Not Reported Not Detected (NotDetected); Cneoformans/gatti Not Reported Not Detected (NotDetected); Cparapsilosis Not Reported Not Detected (NotDetected); E cloacae compx Not Reported Not Detected (NotDetected); Efaecalis Not Reported Not Detected (NotDetected); Efaecium Not Reported Not Detected (NotDetected); Enterobacterales Not Reported Not Detected (NotDetected); Escherichia coli Not Reported Not Detected (NotDetected); H influenzae Not Reported Not Detected (NotDetected); K aerogenes Not Reported Not Detected (NotDetected); Koxytoca Not Reported Not Detected (NotDetected); Kpneumoniae grp Not Reported Not Detected (NotDetected); Lmonocyt Not Reported Not Detected (NotDetected); N meningitidis Not Reported Not Detected (NotDetected); P aeruginosa Not Reported Not Detected (NotDetected); Proteus spp Not Reported Not Detected (NotDetected); Salmonella spp Not Reported Not Detected (NotDetected); Smarcescens Not Reported Not Detected (NotDetected); Staph lugdunensis Not Reported Not Detected (NotDetected); Staph spp. Not Reported Not Detected (NotDetected); Staphaureus Not Reported Not Detected (NotDetected); Staphepi Not Reported Not Detected (NotDetected); Stenmaltophilia Not Reported Not Detected (NotDetected); Strep agal(GrpB) Not Reported Not Detected (NotDetected); Strep pneum Not Reported Not Detected (NotDetected); Strep pyog (GrpA) Not Reported Not Detected (NotDetected); Strep spp Not Reported DETECTED (NotDetected)
[2023-10-20 11:20] LABS: Streptococcus spp DETECTED (NotDetected)
--- NOTE | 2023-10-20 11:25 | Hospitalist Progress Note ---
<Statement entered by Juanis Webster MD - 10/20/23 21:31> 88 y/o admitted with episode of rigors, leukocytosis found to have sepsis due to streptococcal bacteremia from LLE cellulitis. TTE still pending. Continue ceftriaxone, repeat blood cultures for clearance. Agree with documentation below. Date of Service October 20, 2023 Assessment & Plan (1) Bacteremia: Plan: 88yo male with PMHx significant for bacteremia with group G strep due to LE cellulitis presented with rigors as outpatient concerning for infection. Suspect given strep hx, cellulitis to present following. WBC 12k on admission with elevated procalcitonin to 0.54. Lactic wnl Tachypneic w/ RR to 30s but without hypoxia. CXR w/o acute consolidative process on admission. UA w/ trace protein, 1+ ketones, no bacteria. Biofire negative Blood cultures obtained on admission, given dose Ceftriaxone IV This morning, RN reporting cellulitis appearance to LE Ceftriaxone IV ordered to continue Following, blood cultures NOW POSITIVE -- PCR 4/4 bottles with STREP species. Repeat blood cultures added for AM NSS @ 80cc/hr x1L as does appear slightly dry on exam/dry mm. Torsemide ORDERED ON ADMIT, placing further on HOLD for now Repeat labs for eval this afternoon ID consult placed Repeat labs ordered for today, continue to monitor ?ECHO for eval. Prior ECHOs during such w/o vegetation. Will obtain CT leg for further eval deeper infection given recurrence Does not appear w/ calf tenderness, pulses palpable but can consider doppler. Elevation, pain control On heparin SQ for DVT proph Monitor labs on repeat (2) Rigors: Plan: suspect 2nd to above, bacteremia 2nd to cellulitis of his LLE Abx w/ ceftriaxone continued given strep, ID consult as above. Notable, did have outpt [facility] w/ prior infections. Tick labs sent on admission (3) Hypovolemia: Plan: IVF as per above x 1 L. Monitor weights/PO intake, torsemide PLACED ON HOLD WAS CONTINUED/GIVEN THIS MORNING (4) Chronic diastolic CHF (congestive heart failure): Plan: HFpEF, follows with Dr Barton Continued on his metoprolol, however placing torsemide on hole Weights/I&O Resume torsemide as needed, likely in AM but may need another day as given this morning on admission (5) S/P coronary artery stent placement: Plan: Follows with cardiology , Dr Arcos No CP reported tele monitoring continue metoprolol, aspirin (6) Chronic kidney disease, stage 3 (moderate): Plan: Follows with Dr Bell Cr 1.5 on admission, ordered IVF as above but appears torsemide also given/placed on hold as above repeat labs added but will monitor/renal dose meds and avoid nephrotoxins as able (7) Hyperlipidemia: Plan: Continue statin no blood on UA for concerns for rhabdo Plan VTE Prophylaxis: Heparin q12 updated at bedside Admission and Anticipated Discharge Date Admission Date: October 20, 2023 Subjective BRIDGE NOTE: ADMITTED THIS MORNING Eval this morning, at bedside. Ate breakfast, watching TV. Erythema and swelling to LLE presenting this morning, similar to prior infections. Discussed continued IV abx, imaging. No trauma/animals/scratches at home. Discussed concerns for bacteremia 2nd to cellulitis, ID consult and continued abx. SHe reports they did have difficulty with his antibiotics in the past and he did get weekly infusion (stephanie). ID consult placed this morning. Having some R shoulder discomfort and uses Icyhot at home, voltaren ordered. Does have R knee incision but no redness/swelling/drainage. He did have cellultiis in that leg in the past. Follows with Nephrology Dr Bell and cards Dr Arcos but not seen [facility] out[facility]. Can consider consult but pulses palpable at present and suspect no intervention in setting infection at present but will arrange outpt f/u. No CP/SOB, abdominal pain, nausea or vomiting. Questions/concerns addressed at this time Physical Exam Physical Exam: General 88yo male, chronically ill appearing, laying in bed, at bedside, NAD HEENT: head atraumatic, normocephalic, mm slightly dry, trachea midline Resp; even/unlabored, no w/c/r, on room air CV: RRR, no significant mrg, LLE w/ slight edema 2nd to cellulitis, pulses diminished but palpable, calves nontender GI: +BS, soft/NT ; no brunner MSK/Neuro/skin: nonfocal, no slurred speech/facial droop LLE w/ +erythema, +warmth, +swelling, +tenderness R knee incision from prior surgery noted, no evidence for infection prior scars from infections in past noted Psych: AOx3, cooperative with exam Results & Data Results & Data Vital Signs (Past 12 Hours) Vital Signs Temp Pulse Resp BP Pulse Ox O2 Del Method 10/20/23 09:00 132/72 10/20/23 09:00 79 21 92 Room Air 10/20/23 08:58 76 16 91 Room Air 10/20/23 08:20 77 18 91 Room Air 10/20/23 08:10 86 19 94 10/20/23 08:00 78 31 H 90 10/20/23 08:00 116/51 L 10/20/23 07:50 75 25 H 92 10/20/23 07:40 76 25 H 90 10/20/23 07:30 76 25 H 90 10/20/23 07:20 75 25 H 89 L 10/20/23 07:10 73 23 91 10/20/23 07:04 75 10/20/23 07:00 100/41 L 10/20/23 07:00 77 27 H 89 L 10/20/23 06:50 79 20 91 10/20/23 06:40 79 25 H 89 L 10/20/23 06:35 78 24 111/58 L 93 Room Air 10/20/23 06:33 111/58 L 10/20/23 06:33 79 26 H 90 10/20/23 06:30 82 22 91 10/20/23 06:20 81 22 89 L 10/20/23 06:10 77 25 H 92 10/20/23 06:00 78 23 91 10/20/23 05:50 76 22 91 10/20/23 05:40 78 29 H 89 L 10/20/23 05:30 91 H 19 92 10/20/23 05:20 80 30 H 91 10/20/23 05:10 76 31 H 93 10/20/23 05:03 74 10/20/23 05:00 75 25 H 91 10/20/23 04:52 93 Room Air 10/20/23 04:50 75 26 H 93 10/20/23 04:40 75 28 H 92 Room Air 10/20/23 04:30 77 23 93 Room Air 10/20/23 04:20 77 27 H 93 Room Air 10/20/23 04:10 72 24 148/76 H 90 10/20/23 02:30 70 18 142/70 H 92 10/20/23 01:00 68 20 150/62 H 96 Room Air 10/20/23 00:58 67 10/20/23 00:53 36.9 C 69 22 150/62 H 97 Room Air Laboratory Results 10/20/23 10/20/23 10/20/23 Range/Units 04:43 04:38 03:22 WBC (4.8-10.8) K/ul RBC (4.70-6.10) M/uL Hgb (14.0-18.0) g/dl Hct (42.0-52.0) % MCV (80.0-100.0) fL MCH (25.0-34.0) pg MCHC (32.0-36.0) g/dL RDW Std Deviation (36.4-46.3) fL RDW Coeff of Anjelica (11.5-14.5) % Plt Count (130-400) K/uL MPV (9.4-12.4) fL Immature Gran % (Auto) % Neut % (Auto) % Lymph % (Auto) % Mccormick % (Auto) % Eos % (Auto) % Baso % (Auto) % Neut # (Auto) (1.40-6.50) K/uL Lymph # (Auto) (1.20-3.40) K/uL Mccormick # (Auto) (0.11-0.59) K/uL Eos # (Auto) (0.00-0.50) K/uL Baso # (Auto) (0.00-0.20) K/uL Immature Gran # (Auto) (0.01-0.20) K/uL PT (9.0-12.0) Seconds INR (0.9-1.1) APTT (21-31) Seconds PTT Ratio Sodium (136-145) mmol/L Potassium (3.5-5.1) mmol/L Chloride (98-107) mmol/L Carbon Dioxide (21-32) mmol/L Anion Gap (3-11) BUN (6-23) mg/dl Creatinine (0.6-1.4) mg/dl Est Cr Clr Drug Dosing ml/min Est GFR ( Amer) ml/min Est GFR (Non-Af Amer) ml/min BUN/Creatinine Ratio (10-20) Glucose (70-99(Fasting)) mg/dl Lactate 1.6 (0.4-2.0) mmol/L Calcium (8.6-10.3) mg/dl Total Bilirubin (0.2-1.0) mg/dl AST (13-39) U/L ALT (7-52) U/L Alkaline Phosphatase (34-104) U/L Troponin I High Sens (0-20) pg/ml Total Protein (6.0-8.3) gm/dl Albumin (3.4-5.0) gm/dl Globulin (2.5-4.0) gm/dl Albumin/Globulin Ratio (0.9-2) Lipase (11-82) U/L Procalcitonin (0-0.5) ng/ml Urine Color Urine Appearance (Clear) Urine pH (4.5-7.5) Ur Specific [place] (1.000-1.030) Urine Protein (Negative) Urine Glucose (UA) (Negative) Urine Ketones (Negative) Urine Blood (Negative) Urine Nitrite (Negative) Urine Bilirubin (Negative) Urine Urobilinogen (Negative) Ur Leukocyte Esterase (Negative) Urine WBC (Auto) (0-5) /hpf Urine RBC (Auto) (0-2) /hpf U Hyaline Cast (Auto) (0-2) /lpf U Epithel Cells (Auto) (0-2) /hpf Urine Bacteria (Auto) (None Seen) Adenovirus (PCR) (NotDetected) Anaplasma Smear A. phagocytophilum DNA Pending Babesia Smear Babesia microti DNA PCR Pending B. pertussis DNA (PCR) (NotDetected) B.parapertussis DNA PCR (NotDetected) Lyme Disease Screen Negative (Negative) C. pneumoniae DNA (PCR) (NotDetected) Coronavirus OC43 (PCR) (NotDetected) Coronavirus HKU1 (PCR) (NotDetected) Coronavirus 229E (PCR) (NotDetected) SARS-CoV-2 (PCR) (NotDetected) Coronavirus NL63 (PCR) (NotDetected) Human Metapneumovir PCR (NotDetected) Influenza Type A (PCR) (NotDetected) Influenza Type B (PCR) (NotDetected) M. pneumoniae (PCR) (NotDetected) Parainfluenza 1 (PCR) (NotDetected) Parainfluenza 2 (PCR) (NotDetected) Parainfluenza 3 (PCR) (NotDetected) Parainfluenza 4 (PCR) (NotDetected) RSV (PCR) (NotDetected) Entero/Rhino (PCR) (NotDetected) Streptococcus sp PCR (NotDetected) Bld Cult ID Panel PCR (NotDetected) 10/20/23 10/20/23 10/20/23 Range/Units 02:21 01:46 01:05 WBC 13.25 H (4.8-10.8) K/ul RBC 4.25 L (4.70-6.10) M/uL Hgb 14.2 (14.0-18.0) g/dl Hct 41.0 L (42.0-52.0) % MCV 96.5 (80.0-100.0) fL MCH 33.4 (25.0-34.0) pg MCHC 34.6 (32.0-36.0) g/dL RDW Std Deviation 45.4 (36.4-46.3) fL RDW Coeff of Anjelica 12.8 (11.5-14.5) % Plt Count 191 (130-400) K/uL MPV 10.6 (9.4-12.4) fL Immature Gran % (Auto) 0.5 % Neut % (Auto) 92.4 % Lymph % (Auto) 5.1 % Mccormick % (Auto) 1.3 % Eos % (Auto) 0.5 % Baso % (Auto) 0.2 % Neut # (Auto) 12.26 H (1.40-6.50) K/uL Lymph # (Auto) 0.68 L (1.20-3.40) K/uL Mccormick # (Auto) 0.17 (0.11-0.59) K/uL Eos # (Auto) 0.06 (0.00-0.50) K/uL Baso # (Auto) 0.02 (0.00-0.20) K/uL Immature Gran # (Auto) 0.06 (0.01-0.20) K/uL PT 10.7 (9.0-12.0) Seconds INR 1.0 (0.9-1.1) APTT 23 (21-31) Seconds PTT Ratio 0.8 Sodium 139 (136-145) mmol/L Potassium 4.2 (3.5-5.1) mmol/L Chloride 106 (98-107) mmol/L Carbon Dioxide 25 (21-32) mmol/L Anion Gap 8 (3-11) BUN 35 H (6-23) mg/dl Creatinine 1.50 H (0.6-1.4) mg/dl Est Cr Clr Drug Dosing 41.3 ml/min Est GFR ( Amer) 47.5 ml/min Est GFR (Non-Af Amer) 41.0 ml/min BUN/Creatinine Ratio 23.3 H (10-20) Glucose 135 H (70-99(Fasting)) mg/dl Lactate 1.9 (0.4-2.0) mmol/L Calcium 9.2 (8.6-10.3) mg/dl Total Bilirubin 1.3 H (0.2-1.0) mg/dl AST 26 (13-39) U/L ALT 20 (7-52) U/L Alkaline Phosphatase 109 H (34-104) U/L Troponin I High Sens 8.7 (0-20) pg/ml Total Protein 6.5 (6.0-8.3) gm/dl Albumin 4.0 (3.4-5.0) gm/dl Globulin 2.5 (2.5-4.0) gm/dl Albumin/Globulin Ratio 1.6 (0.9-2) Lipase 32 (11-82) U/L Procalcitonin 0.54 H (0-0.5) ng/ml Urine Color Yellow Urine Appearance Clear (Clear) Urine pH 7.5 (4.5-7.5) Ur Specific [place] 1.018 (1.000-1.030) Urine Protein Trace H (Negative) Urine Glucose (UA) Negative (Negative) Urine Ketones 1+ H (Negative) Urine Blood Negative (Negative) Urine Nitrite Negative (Negative) Urine Bilirubin Negative (Negative) Urine Urobilinogen Negative (Negative) Ur Leukocyte Esterase Negative (Negative) Urine WBC (Auto) 0-5 (0-5) /hpf Urine RBC (Auto) 0-2 (0-2) /hpf U Hyaline Cast (Auto) 0-2 (0-2) /lpf U Epithel Cells (Auto) 0-2 (0-2) /hpf Urine Bacteria (Auto) None Seen (None Seen) Adenovirus (PCR) (NotDetected) Anaplasma Smear See Comment A. phagocytophilum DNA Babesia Smear See Comment Babesia microti DNA PCR B. pertussis DNA (PCR) (NotDetected) B.parapertussis DNA PCR (NotDetected) Lyme Disease Screen (Negative) C. pneumoniae DNA (PCR) (NotDetected) Coronavirus OC43 (PCR) (NotDetected) Coronavirus HKU1 (PCR) (NotDetected) Coronavirus 229E (PCR) (NotDetected) SARS-CoV-2 (PCR) (NotDetected) Coronavirus NL63 (PCR) (NotDetected) Human Metapneumovir PCR (NotDetected) Influenza Type A (PCR) (NotDetected) Influenza Type B (PCR) (NotDetected) M. pneumoniae (PCR) (NotDetected) Parainfluenza 1 (PCR) (NotDetected) Parainfluenza 2 (PCR) (NotDetected) Parainfluenza 3 (PCR) (NotDetected) Parainfluenza 4 (PCR) (NotDetected) RSV (PCR) (NotDetected) Entero/Rhino (PCR) (NotDetected) Streptococcus sp PCR DETECTED A (NotDetected) Bld Cult ID Panel PCR See PCR Comment (NotDetected) 10/20/23 Range/Units 01:01 WBC (4.8-10.8) K/ul RBC (4.70-6.10) M/uL Hgb (14.0-18.0) g/dl Hct (42.0-52.0) % MCV (80.0-100.0) fL MCH (25.0-34.0) pg MCHC (32.0-36.0) g/dL RDW Std Deviation (36.4-46.3) fL RDW Coeff of Anjelica (11.5-14.5) % Plt Count (130-400) K/uL MPV (9.4-12.4) fL Immature Gran % (Auto) % Neut % (Auto) % Lymph % (Auto) % Mccormick % (Auto) % Eos % (Auto) % Baso % (Auto) % Neut # (Auto) (1.40-6.50) K/uL Lymph # (Auto) (1.20-3.40) K/uL Mccormick # (Auto) (0.11-0.59) K/uL Eos # (Auto) (0.00-0.50) K/uL Baso # (Auto) (0.00-0.20) K/uL Immature Gran # (Auto) (0.01-0.20) K/uL PT (9.0-12.0) Seconds INR (0.9-1.1) APTT (21-31) Seconds PTT Ratio Sodium (136-145) mmol/L Potassium (3.5-5.1) mmol/L Chloride (98-107) mmol/L Carbon Dioxide (21-32) mmol/L Anion Gap (3-11) BUN (6-23) mg/dl Creatinine (0.6-1.4) mg/dl Est Cr Clr Drug Dosing ml/min Est GFR ( Amer) ml/min Est GFR (Non-Af Amer) ml/min BUN/Creatinine Ratio (10-20) Glucose (70-99(Fasting)) mg/dl Lactate (0.4-2.0) mmol/L Calcium (8.6-10.3) mg/dl Total Bilirubin (0.2-1.0) mg/dl AST (13-39) U/L ALT (7-52) U/L Alkaline Phosphatase (34-104) U/L Troponin I High Sens (0-20) pg/ml Total Protein (6.0-8.3) gm/dl Albumin (3.4-5.0) gm/dl Globulin (2.5-4.0) gm/dl Albumin/Globulin Ratio (0.9-2) Lipase (11-82) U/L Procalcitonin (0-0.5) ng/ml Urine Color Urine Appearance (Clear) Urine pH (4.5-7.5) Ur Specific [place] (1.000-1.030) Urine Protein (Negative) Urine Glucose (UA) (Negative) Urine Ketones (Negative) Urine Blood (Negative) Urine Nitrite (Negative) Urine Bilirubin (Negative) Urine Urobilinogen (Negative) Ur Leukocyte Esterase (Negative) Urine WBC (Auto) (0-5) /hpf Urine RBC (Auto) (0-2) /hpf U Hyaline Cast (Auto) (0-2) /lpf U Epithel Cells (Auto) (0-2) /hpf Urine Bacteria (Auto) (None Seen) Adenovirus (PCR) Not Detected (NotDetected) Anaplasma Smear A. phagocytophilum DNA Babesia Smear Babesia microti DNA PCR B. pertussis DNA (PCR) Not Detected (NotDetected) B.parapertussis DNA PCR Not Detected (NotDetected) Lyme Disease Screen (Negative) C. pneumoniae DNA (PCR) Not Detected (NotDetected) Coronavirus OC43 (PCR) Not Detected (NotDetected) Coronavirus HKU1 (PCR) Not Detected (NotDetected) Coronavirus 229E (PCR) Not Detected (NotDetected) SARS-CoV-2 (PCR) Not Detected (NotDetected) Coronavirus NL63 (PCR) Not Detected (NotDetected) Human Metapneumovir PCR Not Detected (NotDetected) Influenza Type A (PCR) Not Detected (NotDetected) Influenza Type B (PCR) Not Detected (NotDetected) M. pneumoniae (PCR) Not Detected (NotDetected) Parainfluenza 1 (PCR) Not Detected (NotDetected) Parainfluenza 2 (PCR) Not Detected (NotDetected) Parainfluenza 3 (PCR) Not Detected (NotDetected) Parainfluenza 4 (PCR) Not Detected (NotDetected) RSV (PCR) Not Detected (NotDetected) Entero/Rhino (PCR) Not Detected (NotDetected) Streptococcus sp PCR (NotDetected) Bld Cult ID Panel PCR (NotDetected) Diagnostic Findings Chest X-Ray 10/20/23 01:02 XR chest 1V not portable HISTORY: 88 years-old Male illness acute shortness of breath COMPARISON: 12/11/2020 TECHNIQUE: AP view of the chest FINDINGS: Cardiomediastinal and hilar silhouettes are unchanged. Atherosclerosis of the aorta. No pneumothorax, pleural effusion, airspace consolidation or pulmonary edema. Degenerative changes of the shoulders and spine. IMPRESSION: No acute process. ACT 112: Negative or not required by law. The above report was generated using voice recognition software. It may contain grammatical, syntax or spelling errors. Electronically signed by: Rocael Prakash M.D. 10/20/2023 7:01 AM Gallbladder Ultrasound 10/20/23 07:35 ABDOMINAL ULTRASOUND, RIGHT UPPER QUADRANT HISTORY: elevated procal/TB/ALP. COMPARISON: Abdomen and pelvis CT 10/30/2018. FINDINGS: Pancreas: Not well visualized due to overlying bowel gas. Liver: Large hepatic cyst within the left hepatic lobe measuring 12 x 9 x 9 cm. Gallbladder: No gallbladder wall thickening. No definite gallstones. CBD: 6 mm. Right kidney: No hydronephrosis. IMPRESSION: 1. No gallbladder wall thickening. No definite gallstones. 2. Left hepatic lobe cyst. ACT 112: Negative or not required by law. Electronically signed by: Augie Deal M.D. 10/20/2023 9:37 AM PG Care Time/CCT Total # of Minutes Spent Total Time Spent with Patient: Total time spent is greater than 50% in coordination of care (as documented) at patient's floor/unit and/or counseling patient: Coding Level of Care Code None Diagnoses Bacteremia R78.81 Rigors R68.89 Hypovolemia E86.1 Chronic diastolic CHF (congestive heart failure) I50.32 S/P coronary artery stent placement Z95.5 Stage 3 chronic kidney disease, unspecified whether stage 3a or 3b CKD N18.30 Chronic kidney disease stage 3 subtype: unspecified whether 3a or 3b Mixed hyperlipidemia E78.2 Hyperlipidemia type: mixed hyperlipidemia (6) Chronic kidney disease, stage 3 (moderate) Chronic kidney disease stage 3 subtype: unspecified whether 3a or 3b Qualified Code(s): N18.30 - Chronic kidney disease, stage 3 unspecified (7) Hyperlipidemia Hyperlipidemia type: mixed hyperlipidemia Qualified Code(s): E78.2 - Mixed hyperlipidemia
[2023-10-20] MEDS ORDERED: oxyCODONE HCL IR 5 MG TAB (IMMEDIATE RELEASE) PO PRN (11:56)
[2023-10-20] MEDS: DICLOFENAC SOD 1% GEL 100 GM TUBE EXT SCH (12:34)
[2023-10-20 12:35] LABS: Hematocrit (blood only) 38.8 % (42.0-52.0); Hemoglobin 12.8 g/dl (14.0-18.0); Mean Corpuscular Hemoglobin 32.9 pg (25.0-34.0); Mean Corpuscular Volume 99.7 fL (80.0-100.0); Platelet Count 145 K/uL (130-400); RDW Coefficient of Variation 13.2 % (11.5-14.5); RDW Standard Deviation 48.3 fL (36.4-46.3); Red Blood Count 3.89 M/uL (4.70-6.10); White Blood Count 26.81 K/ul (4.8-10.8)
[2023-10-20 12:38] LABS: Albumin Globulin Ratio 1.6 (0.9-2); Albumin Level 3.6 gm/dl (3.4-5.0); BUN Creatinine Ratio 21.6 (10-20); Bilirubin,Total 1.6 mg/dl (0.2-1.0); Calcium 8.8 mg/dl (8.6-10.3); Creatinine Clr Calc Pharmacy 35.8 ml/min; Est GFR (African American) 39.1 ml/min; Est GFR (Non-African American) 33.8 ml/min; Globulin 2.3 gm/dl (2.5-4.0); Magnesium 1.7 mg/dl (1.7-2.4); Potassium 3.9 mmol/L (3.5-5.1); Total Protein 5.9 gm/dl (6.0-8.3)
[2023-10-20 13:06] LABS: Basophils # (auto) 0.06 K/uL (0.00-0.20); Basophils % (auto) 0.2 %; Eosinophils # (auto) 0.04 K/uL (0.00-0.50); Eosinophils % (auto) 0.1 %; Immature Granulocytes # (auto) 0.58 K/uL (0.01-0.20); Immature Granulocytes % (auto) 2.2 %; Lymphocytes # (auto) 0.36 K/uL (1.20-3.40); Lymphocytes % (auto) 1.3 %; Monocytes # (auto) 0.89 K/uL (0.11-0.59); Monocytes % (auto) 3.3 %; Neutrophils # (auto) 24.88 K/uL (1.40-6.50); Neutrophils % (auto) 92.9 %
--- NOTE | 2023-10-20 14:38 | CT Scan Report ---
LEFT TIBIA/FIBULA CT CT DOSE: 1106.58 mGy.cm HISTORY: Left lower leg bacteremia, cellulitis, eval abscess/deeper infection TECHNIQUE: Multiaxial CT images of the left lower leg were performed and reformatted in the sagittal and coronal plane without the use of contrast. A dose lowering technique was utilized adhering to e principles of ALARA. COMPARISON: Left lower leg CT 11/26/2020. FINDINGS: The skeletal structures are osteopenic. There is no evidence of left tibial or fibular frac ture. There is no bony erosion or periostitis. The knee and ankle joints are grossly maintained. Head Of Biology ketan deformity within the calcaneus favors an old, healed fracture. This remains unchanged Arthritic c hange is seen in the hindfoot. No soft tissue gas is identified throughout the left lower extremity. There is advanced atherosclerotic calcification of the regional arteries. There is diffuse subcutaneo us soft tissue edema and fluid seen throughout the left lower extremity. There is no evidence of orga nized fluid collection on this unenhanced examination. The Achilles tendon is intact as visualized. T he regional musculature is atrophic. IMPRESSION: 1. No acute bony abnormality is seen in the left tibia or fibula. 2. No soft tissue gas is identified. 3. Diffuse soft tissue edema and subcutaneous fluid is identified throughout the left lower extremity . Correlate clinically for evidence of cellulitis. 4. There is no organized fluid collection to suggest abscess on this unenhanced examination. ACT 112: Negative or not required by law. Electronically signed by: Augie Deal M.D. 10/20/2023 2:37 PM
--- NOTE | 2023-10-20 15:30 | Infectious Disease Consult ---
Date of Consultation October 20, 2023 Consultation Information Consultation was provided via telemedicine using two-way real-time interactive telecommunication between the patient and the telemedicine provider. For the duration of the visit, the provider was performing the assessment from a different facility than the patient. This includesuse of bluetooth stethoscope forauscultationperformed by the telepresenter that the telemedicine provider can hear if described in the physical exam. Skatesman contact information: Please call [facility] Call Center . (Phone Number For Physician Use Only) History of Present Illness Reason for Consultation: bacteremia, Streptococcus, h/o group G cellulitis Attending Physician: Juanis Webster MD History of Present Illness 88yo M with/o CKD III, CAD s/p PCI, CHF, hyperparathyroidism, prior h/o LLE cellulitis with Group G Strep bacteremia in 2020, HLD who presented on 10/19 with rigors. Last night he went to bed and developed rigors. No other symptoms. No cough, congestion, n/v, diarrhea, dysuria. Initially reported to not have any new rashes. Per chart, it appears he developed erythema of LLE this morning. No trauma or animal scratches. On admission, he was afebrile, BP stable. Initial labs with WBC 26.81. Cr 1.76, AST/ALT wnl. PCT 0.54. UA negative. RPP negative. BCx with GPC, Strep on BCID. CXR negative. SUMAN u/s with left hepatic lobe cyst. CT of L lower leg negative for bony abnormality, no soft tissue gas, diffuse soft tissue edema and subcutaneous fluid throughout LLE, no organized fluid collection. He has been started on CTX. ID consulted 10/19 for assistance. Allergies Allergy/AdvReac Type Severity Reaction Status Date / Time No Known Drug Allergies Allergy Verified 10/20/23 09:43 Home Medications Medication Instructions Recorded Confirmed Type aspirin 81 mg tablet,delayed 81 mg PO DAILY 10/30/18 10/20/23 History release (Steven Low Dose Aspirin) Echinacea purpurea extract 125 mg 125 mg PO UD PRN for preventrion 12/29/18 10/20/23 History tablet (echinacea) of colds atorvastatin 80 mg tablet 40 mg (1/2 x 80 mg) PO QAM #45 tabs 12/12/22 10/20/23 Rx metoprolol succinate 25 mg 25 mg PO QAM #90 tabs 12/12/22 10/20/23 Rx tablet,extended release 24 hr torsemide 10 mg tablet 10 mg PO DAILY #90 tabs 07/28/23 10/20/23 Rx ergocalciferol (vitamin D2) 1,250 1,250 mcg PO MONTHLY 10/20/23 10/20/23 History mcg (50,000 unit) capsule Patient History Medical History Venous insufficiency Peripheral arterial disease Cellulitis of left lower leg Admitted 10/2020 [facility] Edema CAD in [place] artery Chronic kidney disease, stage 3 (moderate) Hearing loss, bilateral Hyperlipidemia Hyperparathyroidism Hypertension Osteoarthritis, multiple sites Vitamin D deficiency Pulmonary embolism (02/19/14) Kidney stones Fracture, humerus History of [place] (myocardial infarction) Surgical History S/P coronary artery stent placement History of knee replacement procedure of right knee Family History Aunt Breast cancer Mother Hypertension Kidney disease ESRD - did not go on dialysis Father Myocardial infarction Stroke Denies family history of Ovarian cancer Prostate cancer Diabetes Lung cancer Colorectal cancer Social History Smoking Status: Never smoker Tobacco Type: Cigarettes packs per day: 0.5; Second Hand Exposure: No; Do You Dip or Chew Tobacco: No; Hx Alcohol Use: Yes Alcohol type: beer Alcohol Intake Frequency: 2-3 x/Week Alcohol Intake Frequency Comment: no etoh since his recent hospital stay Hx Substance Use: No Preferred Language: Belizean Communication Ability: Effective Visual Impairment: Limited Hearing Ability: Use of Hearing Aid Slot Machine Mechanic Required: No Beliefs That Will Affect Care: None marital status: Current Living Situation: Spouse current occupational status: retired How many Children do You have: 4 How many Children do You have Comment: 2 are 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, 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 [employer] Feels Safe at Home: Yes Safety Concerns: Feels Safe At This Time Childhood Exposure to Second-Hand Smoke: Yes Diet: regular caffeine: Yes (coffee) during the past year weight has: remained stable Dental Care, Regularly: No Physical Activity Frequency: Daily Seatbelt Use: always Sunscreen Use: No Do you think of yourself as: straight/heterosexual Gender Identity: Male Assistive Devices: Glasses and Hearing Aid - Bilateral Results & Data Vital Signs (Past 12 Hours) Vital Signs Pulse Resp BP Pulse Ox O2 Del Method 10/20/23 12:00 120/61 10/20/23 12:00 66 19 92 10/20/23 11:50 67 23 92 10/20/23 11:40 65 24 94 10/20/23 11:30 66 28 H 94 10/20/23 11:20 65 24 94 10/20/23 11:10 67 24 94 10/20/23 11:00 130/62 10/20/23 11:00 66 23 95 10/20/23 10:50 66 22 94 10/20/23 10:40 65 20 93 10/20/23 10:30 67 23 91 10/20/23 10:20 73 19 93 10/20/23 10:10 68 20 95 10/20/23 10:00 68 25 H 90 10/20/23 10:00 131/63 10/20/23 09:50 72 23 93 Room Air 10/20/23 09:40 71 24 93 Room Air 10/20/23 09:30 71 22 91 Room Air 10/20/23 09:20 71 22 92 Room Air 10/20/23 09:10 79 15 93 Room Air 10/20/23 09:00 132/72 10/20/23 09:00 79 21 92 Room Air 10/20/23 08:58 76 16 91 Room Air 10/20/23 08:20 77 18 91 Room Air 10/20/23 08:10 86 19 94 10/20/23 08:00 78 31 H 90 10/20/23 08:00 116/51 L 10/20/23 07:50 75 25 H 92 10/20/23 07:40 76 25 H 90 10/20/23 07:30 76 25 H 90 10/20/23 07:20 75 25 H 89 L 10/20/23 07:10 73 23 91 10/20/23 07:04 75 10/20/23 07:00 100/41 L 10/20/23 07:00 77 27 H 89 L 10/20/23 06:50 79 20 91 10/20/23 06:40 79 25 H 89 L 10/20/23 06:35 78 24 111/58 L 93 Room Air 10/20/23 06:33 111/58 L 10/20/23 06:33 79 26 H 90 10/20/23 06:30 82 22 91 10/20/23 06:20 81 22 89 L 10/20/23 06:10 77 25 H 92 10/20/23 06:00 78 23 91 10/20/23 05:50 76 22 91 10/20/23 05:40 78 29 H 89 L 10/20/23 05:30 91 H 19 92 10/20/23 05:20 80 30 H 91 10/20/23 05:10 76 31 H 93 10/20/23 05:03 74 10/20/23 05:00 75 25 H 91 10/20/23 04:52 93 Room Air 10/20/23 04:50 75 26 H 93 10/20/23 04:40 75 28 H 92 Room Air 10/20/23 04:30 77 23 93 Room Air 10/20/23 04:20 77 27 H 93 Room Air 10/20/23 04:10 72 24 148/76 H 90
--- NOTE | 2023-10-20 15:38 | Infectious Disease Consult ---
Date of Consultation October 20, 2023 Assessment & Plan (1) Bacteremia: (2) Rigors: (3) Cellulitis: (4) Chronic diastolic CHF (congestive heart failure): Plan 88yo M with/o CKD III, CAD s/p PCI, CHF, hyperparathyroidism, prior h/o LLE cellulitis with Group G Strep bacteremia in 2020, HLD who presented on 10/19 with acute onset of rigors. Developed erythema of LLE morning of 10/19. No trauma or animal scratches. On admission, he was afebrile, BP stable. Initial labs with WBC 26.81. Cr 1.76, AST/ALT wnl. PCT 0.54. UA negative. RPP negative. BCx with GPC, Strep on BCID. CXR negative. SUMAN u/s with left hepatic lobe cyst. CT of L lower leg negative for bony abnormality, no soft tissue gas, diffuse soft tissue edema and subcutaneous fluid throughout LLE, no organized fluid collection. He has been started on CTX. ID consulted 10/19 for assistance. Agree with CTX. Since he is developing a rash on his LLE, likely related to cellulitis. However, I do think we should check TTE given high grade bacteremia. # GPC bacteremia (Strep by BCID) # CKD III # CHF - obtain TTE - repeat BCx ordered for morning - continue on CTX 2g IV daily - f/u tick studies - will see patient via video tomorrow when telepresenter is available ID will continue to follow. If questions or concerns, contact Infectious Disease Call Center . Emily Hardy MD [facility], Division of Infectious Diseases [facility]: [phone] Consultation Information This patient recommendation is based on a telemedicine consult request which was completed asynchronously through chart review and information provided by the primary physician. The patient was not seen or examined today. The evaluation is consultative in nature and all patient care and treatment decisions can either be accepted or rejected by the patient's primary hospital-based treating physician using their own independent medical judgment for their patient. Dealer Development Manager contact information: Please call [facility] Connect Call Center [phone]. (Phone Number For Physician Use Only) Time Spent Reviewing Chart: 31+ minutes History of Present Illness Reason for Consultation: bacteremia, Streptococcus, h/o group G cellulitis Attending Physician: Juanis Webster MD History of Present Illness 88yo M with/o CKD III, CAD s/p PCI, CHF, hyperparathyroidism, prior h/o LLE cellulitis with Group G Strep bacteremia in 2020, HLD who presented on 10/19 with rigors. Last night he went to bed and developed rigors. No other symptoms. No cough, congestion, n/v, diarrhea, dysuria. Initially reported to not have any new rashes. Per chart, it appears he developed erythema of LLE this morning. No trauma or animal scratches. On admission, he was afebrile, BP stable. Initial labs with WBC 26.81. Cr 1.76, AST/ALT wnl. PCT 0.54. UA negative. RPP negative. BCx with GPC, Strep on BCID. CXR negative. SUMAN u/s with left hepatic lobe cyst. CT of L lower leg negative for bony abnormality, no soft tissue gas, diffuse soft tissue edema and subcutaneous fluid throughout LLE, no organized fluid collection. He has been started on CTX. ID consulted 10/19 for assistance. Please note, telepresenter not available at this time. Allergies Allergy/AdvReac Type Severity Reaction Status Date / Time No Known Drug Allergies Allergy Verified 10/20/23 09:43 Home Medications Medication Instructions Recorded Confirmed Type aspirin 81 mg tablet,delayed 81 mg PO DAILY 10/30/18 10/20/23 History release (Steven Low Dose Aspirin) Echinacea purpurea extract 125 mg 125 mg PO UD PRN for preventrion 12/29/18 10/20/23 History tablet (echinacea) of colds atorvastatin 80 mg tablet 40 mg (1/2 x 80 mg) PO QAM #45 tabs 12/12/22 10/20/23 Rx metoprolol succinate 25 mg 25 mg PO QAM #90 tabs 12/12/22 10/20/23 Rx tablet,extended release 24 hr torsemide 10 mg tablet 10 mg PO DAILY #90 tabs 07/28/23 10/20/23 Rx ergocalciferol (vitamin D2) 1,250 1,250 mcg PO MONTHLY 10/20/23 10/20/23 History mcg (50,000 unit) capsule Patient History Medical History Venous insufficiency Peripheral arterial disease Cellulitis of left lower leg Admitted 10/2020 [facility] Edema CAD in [place] artery Chronic kidney disease, stage 3 (moderate) Hearing loss, bilateral Hyperlipidemia Hyperparathyroidism Hypertension Osteoarthritis, multiple sites Vitamin D deficiency Pulmonary embolism (02/19/14) Kidney stones Fracture, humerus History of [place] (myocardial infarction) Surgical History S/P coronary artery stent placement History of knee replacement procedure of right knee Family History Aunt Breast cancer Mother Hypertension Kidney disease ESRD - did not go on dialysis Father Myocardial infarction Stroke Denies family history of Ovarian cancer Prostate cancer Diabetes Lung cancer Colorectal cancer Social History Smoking Status: Never smoker Tobacco Type: Cigarettes packs per day: 0.5; Second Hand Exposure: No; Do You Dip or Chew Tobacco: No; Hx Alcohol Use: Yes Alcohol type: beer Alcohol Intake Frequency: 2-3 x/Week Alcohol Intake Frequency Comment: no etoh since his recent hospital stay Hx Substance Use: No Preferred Language: Greenlandic Communication Ability: Effective Visual Impairment: Limited Hearing Ability: Use of Hearing Aid Drag Out Worker Required: No Beliefs That Will Affect Care: None marital status: Current Living Situation: Spouse current occupational status: retired How many Children do You have: 4 How many Children do You have Comment: 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, 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 [employer] Feels Safe at Home: Yes Safety Concerns: Feels Safe At This Time Childhood Exposure to Second-Hand Smoke: Yes Diet: regular caffeine: Yes (coffee) during the past year weight has: remained stable Dental Care, Regularly: No Physical Activity Frequency: Daily Seatbelt Use: always Sunscreen Use: No Do you think of yourself as: straight/heterosexual Gender Identity: Male Assistive Devices: Glasses and Hearing Aid - Bilateral Results & Data Vital Signs (Past 12 Hours) Vital Signs Pulse Resp BP Pulse Ox O2 Del Method 10/20/23 12:00 120/61 10/20/23 12:00 66 19 92 10/20/23 11:50 67 23 92 10/20/23 11:40 65 24 94 10/20/23 11:30 66 28 H 94 10/20/23 11:20 65 24 94 10/20/23 11:10 67 24 94 10/20/23 11:00 130/62 10/20/23 11:00 66 23 95 10/20/23 10:50 66 22 94 10/20/23 10:40 65 20 93 10/20/23 10:30 67 23 91 10/20/23 10:20 73 19 93 10/20/23 10:10 68 20 95 10/20/23 10:00 68 25 H 90 10/20/23 10:00 131/63 10/20/23 09:50 72 23 93 Room Air 10/20/23 09:40 71 24 93 Room Air 10/20/23 09:30 71 22 91 Room Air 10/20/23 09:20 71 22 92 Room Air 10/20/23 09:10 79 15 93 Room Air 10/20/23 09:00 132/72 10/20/23 09:00 79 21 92 Room Air 10/20/23 08:58 76 16 91 Room Air 10/20/23 08:20 77 18 91 Room Air 10/20/23 08:10 86 19 94 10/20/23 08:00 78 31 H 90 10/20/23 08:00 116/51 L 10/20/23 07:50 75 25 H 92 10/20/23 07:40 76 25 H 90 10/20/23 07:30 76 25 H 90 10/20/23 07:20 75 25 H 89 L 10/20/23 07:10 73 23 91 10/20/23 07:04 75 10/20/23 07:00 100/41 L 10/20/23 07:00 77 27 H 89 L 10/20/23 06:50 79 20 91 10/20/23 06:40 79 25 H 89 L 10/20/23 06:35 78 24 111/58 L 93 Room Air 10/20/23 06:33 111/58 L 10/20/23 06:33 79 26 H 90 10/20/23 06:30 82 22 91 10/20/23 06:20 81 22 89 L 10/20/23 06:10 77 25 H 92 10/20/23 06:00 78 23 91 10/20/23 05:50 76 22 91 10/20/23 05:40 78 29 H 89 L 10/20/23 05:30 91 H 19 92 10/20/23 05:20 80 30 H 91 10/20/23 05:10 76 31 H 93 10/20/23 05:03 74 10/20/23 05:00 75 25 H 91 10/20/23 04:52 93 Room Air 10/20/23 04:50 75 26 H 93 10/20/23 04:40 75 28 H 92 Room Air 10/20/23 04:30 77 23 93 Room Air 10/20/23 04:20 77 27 H 93 Room Air 10/20/23 04:10 72 24 148/76 H 90 Laboratory Results Labs reviewed Diagnostic Findings Imaging reviewed (3) Cellulitis Site of cellulitis: unspecified site Qualified Code(s): L03.90 - Cellulitis, unspecified
[2023-10-21] MEDS: cefTRIAXone SODIUM 2,000 MG in DEXTROSE 5 % MINI-B 50 ML IV SCH (01:36)
[2023-10-21 06:56] LABS: Albumin Globulin Ratio 1.3 (0.9-2); Albumin Level 3.2 gm/dl (3.4-5.0); BUN Creatinine Ratio 21.9 (10-20); Bilirubin,Total 1.2 mg/dl (0.2-1.0); Calcium 8.8 mg/dl (8.6-10.3); Creatinine Clr Calc Pharmacy 43.1 ml/min; Est GFR (African American) 49.1 ml/min; Est GFR (Non-African American) 42.3 ml/min; Globulin 2.5 gm/dl (2.5-4.0); Magnesium 1.8 mg/dl (1.7-2.4); Potassium 3.7 mmol/L (3.5-5.1); Total Protein 5.7 gm/dl (6.0-8.3)
[2023-10-21 07:09] LABS: Basophils # (auto) 0.06 K/uL (0.00-0.20); Basophils % (auto) 0.3 %; Dohle Bodies 1+; Eosinophils # (auto) 0.03 K/uL (0.00-0.50); Eosinophils % (auto) 0.2 %; Hematocrit (blood only) 37.7 % (42.0-52.0); Hemoglobin 12.6 g/dl (14.0-18.0); Lymphocytes # (auto) 0.75 K/uL (1.20-3.40); Lymphocytes % (auto) 3.8 %; Mean Corpuscular Hemoglobin 33.1 pg (25.0-34.0); Mean Corpuscular Hgb Conc 33.4 g/dL (32.0-36.0); Mean Platelet Volume 11.5 fL (9.4-12.4); Monocytes % (auto) 3.5 %; Neutrophils # (auto) 18.19 K/uL (1.40-6.50); Neutrophils % (auto) 91.2 %; Platelet Count 130 K/uL (130-400); RDW Coefficient of Variation 13.4 % (11.5-14.5); RDW Standard Deviation 48.5 fL (36.4-46.3); Red Blood Count 3.81 M/uL (4.70-6.10); White Blood Count 19.93 K/ul (4.8-10.8)
--- NOTE | 2023-10-21 11:14 | XCELERA ---
[id number]
--- NOTE | 2023-10-21 12:30 | Infectious Disease Progress Nt ---
Date of Service October 21, 2023 Assessment & Plan (1) Bacteremia: (2) Rigors: (3) Cellulitis: (4) Chronic diastolic CHF (congestive heart failure): Plan 88yo M with/o CKD III, CAD s/p PCI, CHF, hyperparathyroidism, prior h/o LLE cellulitis with Group G Strep bacteremia in 2020, HLD who presented on 10/19 with acute onset of rigors. Developed erythema of LLE morning of 10/19. No trauma or animal scratches. On admission, he was afebrile, BP stable. Initial labs with WBC 26.81. Cr 1.76, AST/ALT wnl. PCT 0.54. UA negative. RPP negative. BCx with GPC, Strep on BCID. CXR negative. SUMAN u/s with left hepatic lobe cyst. CT of L lower leg negative for bony abnormality, no soft tissue gas, diffuse soft tissue edema and subcutaneous fluid throughout LLE, no organized fluid collection. He has been started on CTX. ID consulted 10/19 for assistance. Bacteremia likely 2/2 LLE cellulitis. Awaiting TTE read and pending cultures. # GPC bacteremia (Strep by BCID) # LLE cellulitis # CKD III # CHF - f/u TTE - f/u BCx from 10/19 and 10/20 - continue on CTX 2g IV daily - f/u tick studies ID will continue to follow. If questions or concerns, contact Infectious Disease Call Center . Emily Hardy MD [facility], Division of Infectious Diseases IDConnect: [phone] Admission and Anticipated Discharge Date Admission Date: October 20, 2023 Subjective Subsequent visit was provided via telemedicine using two-way real-time interactive telecommunication between the patient and the telemedicine provider. For the duration of the visit, the provider was performing the assessment from a different facility than the patient. This includesuse of bluetooth stethoscope forauscultationperformed by the telepresenter that the telemedicine provider can hear if described in the physical exam. Sonar Subsystem Equipment Operator contact information: Please call [facility] Connect Call Center . (Phone Number For Physician Use Only) After establishing a telemedicine visit, patient was: Patient was verified with two unique identifiers, Patient/authorized rep acknowledged consent and understanding and Gave permission to continue telehealth session Time Spent with Patient: Subsequent => 55 min Patient reports that he had a similar presentation last year. 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 He has R knee replacement, also no problems. No back pain. 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 Physical Exam Physical Exam: General: Awake, alert, no acute distress HEENT: NC/AT, EOMI, mmm Neck: supple Lungs: respirations non-labored Heart: nl peripheral perfusion Abdomen: soft, NT/ND Back: no spinal tenderness Ext: bl LE edema, rash on left leg Results & Data Vital Signs (Past 12 Hours) Vital Signs Temp Pulse Pulse Resp BP Pulse Ox O2 Del Method 10/21/23 11:05 36.5 C 66 18 153/72 H 95 Room Air 10/21/23 07:33 36.6 C 70 18 130/75 90 Room Air 10/21/23 07:20 70 10/21/23 04:01 37.0 C 70 18 185/54 H 95 Room Air 10/21/23 00:49 37.1 C 68 18 130/61 94 Room Air (3) Cellulitis Site of cellulitis: unspecified site Qualified Code(s): L03.90 - Cellulitis, unspecified
--- NOTE | 2023-10-21 14:51 | Hospitalist Progress Note ---
Date of Service October 21, 2023 Assessment & Plan (1) Bacteremia: Plan: 88yo male with PMHx significant for bacteremia from group G strep- LE cellulitis presented with rigors concerning for infection. WBC 12k on admission with elevated procalcitonin to 0.54. Lactic wnl Tachypneic w/ RR to 30s but without hypoxia. CXR w/o acute consolidative process on admission. UA w/ trace protein, 1+ ketones, no bacteria. Biofire negative 10/19: Blood cultures 10/01 positive for strep species Repeat cultures 10/20: Pending Infectious disease consulted Continue ceftriaxone Follow repeat cultures Tick studies pending Echo: EF 55 to 60%, no valvular pathology no valvular vegetation identified CT leg: Soft tissue edema consistent with cellulitis, no evidence of further bony involvement or soft tissue gas (2) Rigors: Plan: suspect 2nd to above, bacteremia 2nd to cellulitis of his LLE Abx w/ ceftriaxone continued given strep, ID consult as above. Notable, did have outpt [facility] w/ prior infections. Tick labs sent on admission Rigors have improved (3) Chronic diastolic CHF (congestive heart failure): Plan: HFpEF, follows with Dr Barton Continued on his metoprolol,plan to resume torsemide 10/21 Weights/I&O (4) S/P coronary artery stent placement: Plan: Follows with cardiology , Dr Arcos No CP reported tele monitoring continue metoprolol, aspirin (5) Chronic kidney disease, stage 3 (moderate): Plan: Follows with Dr Bell Cr 1.5 on admission, last nephrology note documents baseline 1.72 renal dose meds and avoid nephrotoxins as able AM BMP (6) Hyperlipidemia: Plan: Continue statin (7) Hepatic cyst: Plan: 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 Other LFTs within normal limits Patient made aware of these findings, recommend outpatient follow-up Plan VTE Prophylaxis: Heparin q12 Dispo- PT OT: Recommend return home when medically stable updated at bedside Admission and Anticipated Discharge Date Admission Date: October 20, 2023 Supervising Physician Co-Signing Physician Notes PA Supervision Note: I did not personally see or examine the patient today, but I verified all cook points of DONNA Segundo's assessment and plan with the following exceptions/additions: None Subjective Patient seen around 10 AM, present at bedside. States that he is feeling almost 100% better today. Does not recall any injuries, or open wounds on the leg. But interestingly did tell me that he had two children from sepsis. Discussed liver cyst found on imaging patient was unaware of this. No acute complaints Telemetry: Sinus rhythm 70s Review of Systems Review of Systems: All systems reviewed & are unremarkable except as noted in Subjective Physical Exam Physical Exam: General: NAD, lying in bed VS as above Resp: normal respiratory effort, lungs clear to auscultation CV: RRR, no murmur, Abd: normal bowel sounds, non tender, soft Extremities: Moves all extremities, left lower extremity with erythema and mild swelling. No warmth Neuro: A&O x3, Results & Data Results & Data Vital Signs (Past 12 Hours) Vital Signs Temp Pulse Pulse Resp BP Pulse Ox O2 Del Method 10/21/23 14:46 73 10/21/23 11:05 36.5 C 66 18 153/72 H 95 Room Air 10/21/23 07:33 36.6 C 70 18 130/75 90 Room Air 10/21/23 07:20 70 10/21/23 04:01 37.0 C 70 18 185/54 H 95 Room Air Laboratory Results CBC, chemistry, blood cultures reviewed Diagnostic Findings Echo reviewed PG Care Time/CCT Total # of Minutes Spent Total Time Spent with Patient: Total time spent is greater than 50% in coordination of care (as documented) at patient's floor/unit and/or counseling patient: Coding Level of Care Code 83876 SUB INP/OBS CARE 3/50MIN Diagnoses Bacteremia R78.81 Rigors R68.89 Chronic diastolic CHF (congestive heart failure) I50.32 S/P coronary artery stent placement Z95.5 Stage 3 chronic kidney disease, unspecified whether stage 3a or 3b CKD N18.30 Chronic kidney disease stage 3 subtype: unspecified whether 3a or 3b Mixed hyperlipidemia E78.2 Hyperlipidemia type: mixed hyperlipidemia Hepatic cyst K76.89 (5) Chronic kidney disease, stage 3 (moderate) Chronic kidney disease stage 3 subtype: unspecified whether 3a or 3b Qualified Code(s): N18.30 - Chronic kidney disease, stage 3 unspecified (6) Hyperlipidemia Hyperlipidemia type: mixed hyperlipidemia Qualified Code(s): E78.2 - Mixed hyperlipidemia
[2023-10-21] MEDS: ACETAMINOPHEN 500 MG TAB PO PRN (16:18)
--- NOTE | 2023-10-22 07:57 | Infectious Disease Progress Nt ---
Date of Service October 22, 2023 Assessment & Plan (1) Bacteremia: (2) Rigors: (3) Cellulitis: (4) Chronic diastolic CHF (congestive heart failure): Plan 88yo M with/o CKD III, CAD s/p PCI, CHF, hyperparathyroidism, prior h/o LLE cellulitis with Group G Strep bacteremia in 2020, HLD who presented on 10/19 with acute onset of rigors. Developed erythema of LLE morning of 10/19. No trauma or animal scratches. On admission, he was afebrile, BP stable. Initial labs with WBC 26.81. Cr 1.76, AST/ALT wnl. PCT 0.54. UA negative. RPP negative. BCx with group G strep. CXR negative. SUMAN u/s with left hepatic lobe cyst. CT of L lower leg negative for bony abnormality, no soft tissue gas, diffuse soft tissue edema and subcutaneous fluid throughout LLE, no organized fluid collection. He has been started on CTX. ID consulted 10/19 for assistance. TTE negative for vegetations. Bacteremia likely 2/2 LLE cellulitis. Repeat cx are so far no growth. He is clinically improving. If 10/20 BCx remain negative for 48hr, and Strep is sensitive, then we can plan for a 2 week course of abx, which can be completed with amoxicillin. # Group G beta bacteremia # LLE cellulitis # CKD III # CHF - f/u BCx sensitivities from 10/19 - f/u BCX from 10/20 - f/u tick studies - continue on CTX 2g IV daily - if he continues to clinically improve, BCx 10/20 remain negative x 48hr, and Strep is sensitive to PCN, will plan for dc home with PO amoxicillin 1g PO 3 times daily to complete 14 days (starting presumably on 10/20 with end though 11/02) ID will continue to follow. If questions or concerns, contact Infectious Disease Call Center . Emily Hardy MD [facility], Division of Infectious Diseases IDConnect: [phone] Admission and Anticipated Discharge Date Admission Date: October 21, 2023 Subjective Subsequent visit was provided via telemedicine using two-way real-time interactive telecommunication between the patient and the telemedicine provider. For the duration of the visit, the provider was performing the assessment from a different facility than the patient. This includesuse of bluetooth stethoscope forauscultationperformed by the telepresenter that the telemedicine provider can hear if described in the physical exam. Log Skidder contact information: Please call ID Connect Call Center . (Phone Number For Physician Use Only) After establishing a telemedicine visit, patient was: Patient was verified with two unique identifiers, Patient/authorized rep acknowledged consent and understanding and Gave permission to continue telehealth session Time Spent with Patient: Subsequent => 55 min Patient reports feeling better. No pain in left leg. No n/v/d. Physical Exam Physical Exam: General: Awake, alert, no acute distress HEENT: NC/AT, EOMI, mmm Neck: supple Lungs: respirations non-labored Heart: nl peripheral perfusion Abdomen: soft, NT/ND Ext: improved redness, still some erythema on anterior plata Results & Data Vital Signs (Past 12 Hours) Vital Signs Temp Pulse Pulse Resp BP Pulse Ox O2 Del Method 10/22/23 07:18 63 10/22/23 07:16 36.4 C L 62 16 144/73 H 93 Room Air 10/22/23 04:37 36.7 C 65 20 150/69 H 93 Room Air 10/22/23 04:19 62 10/21/23 23:39 36.5 C 62 20 162/75 H 94 Room Air 10/21/23 20:03 36.5 C 64 20 133/66 92 Room Air (3) Cellulitis Site of cellulitis: unspecified site Qualified Code(s): L03.90 - Cellulitis, unspecified
[2023-10-22 08:38] LABS: Basophils # (auto) 0.03 K/uL (0.00-0.20); Basophils % (auto) 0.2 %; Eosinophils # (auto) 0.23 K/uL (0.00-0.50); Eosinophils % (auto) 1.9 %; Hematocrit (blood only) 36.9 % (42.0-52.0); Hemoglobin 12.3 g/dl (14.0-18.0); Immature Granulocytes # (auto) 0.07 K/uL (0.01-0.20); Immature Granulocytes % (auto) 0.6 %; Lymphocytes % (auto) 5.8 %; Mean Corpuscular Hemoglobin 33.1 pg (25.0-34.0); Mean Corpuscular Hgb Conc 33.3 g/dL (32.0-36.0); Mean Corpuscular Volume 99.2 fL (80.0-100.0); Monocytes # (auto) 0.59 K/uL (0.11-0.59); Monocytes % (auto) 4.9 %; Neutrophils # (auto) 10.42 K/uL (1.40-6.50); Neutrophils % (auto) 86.6 %; Platelet Count 135 K/uL (130-400); RDW Coefficient of Variation 13.3 % (11.5-14.5); RDW Standard Deviation 48.9 fL (36.4-46.3); Red Blood Count 3.72 M/uL (4.70-6.10); White Blood Count 12.04 K/ul (4.8-10.8)
[2023-10-22 09:15] LABS: Albumin Globulin Ratio 1.2 (0.9-2); Albumin Level 3.2 gm/dl (3.4-5.0); Bilirubin,Total 0.9 mg/dl (0.2-1.0); Creatinine Clr Calc Pharmacy 46.1 ml/min; Est GFR (African American) 53.9 ml/min; Est GFR (Non-African American) 46.5 ml/min; Globulin 2.6 gm/dl (2.5-4.0); Magnesium 1.9 mg/dl (1.7-2.4); Potassium 3.8 mmol/L (3.5-5.1); Total Protein 5.8 gm/dl (6.0-8.3)
--- NOTE | 2023-10-22 09:58 | Hospitalist Progress Note ---
Date of Service October 22, 2023 Assessment & Plan (1) Bacteremia: Plan: 88yo male with PMHx significant for bacteremia from group G strep- LE cellulitis presented with rigors concerning for infection. WBC 12k on admission with elevated procalcitonin to 0.54. Lactic wnl Tachypneic w/ RR to 30s but without hypoxia. CXR w/o acute consolidative process on admission. UA w/ trace protein, 1+ ketones, no bacteria. Biofire negative 10/19: Blood cultures 10/01 positive for strep species, sensitivities pending Repeat cultures 10/20: no growth at 24 hours Infectious disease consulted Continue ceftriaxone wait for repeat cultures at 48 hours and sensitivies (if sensitive plan for amoxicillin TID for 2 weeks) Tick studies: lyme negative, PCR tests pending Echo: EF 55 to 60%, no valvular pathology no valvular vegetation identified CT leg: Soft tissue edema consistent with cellulitis, no evidence of further bony involvement or soft tissue gas PT OT: Recommend return home when medically stable No issues on tele - will downgrade to medical today (2) Rigors: Plan: suspect 2nd to above, bacteremia 2nd to cellulitis of his LLE Abx w/ ceftriaxone continued given strep, ID consult as above. Notable, did have outpt [facility] w/ prior infections. Tick labs sent on admission Rigors have resolved (3) Chronic diastolic CHF (congestive heart failure): Plan: HFpEF, follows with Dr Barton Continued on his metoprolol,plan to resume torsemide 10/21 Weights/I&O (4) S/P coronary artery stent placement: Plan: Follows with cardiology , Dr Arcos No CP reported continue metoprolol, aspirin No events on tele - downgrade to medical 10/21 (5) Chronic kidney disease, stage 3 (moderate): Plan: Follows with Dr Bell Cr 1.5 on admission, last nephrology note documents baseline 1.72 renal dose meds and avoid nephrotoxins as able Cr 1.35 - toresmide resumed (6) Hyperlipidemia: Plan: Continue statin (7) Hepatic cyst: Plan: 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 Other LFTs within normal limits Patient made aware of these findings, recommend outpatient follow-up Plan VTE Prophylaxis: Heparin q12 Dispo-continued inpatient stay, hopefully d.c to home tomorrow pending cultures Admission and Anticipated Discharge Date Admission Date: October 21, 2023 Supervising Physician Co-Signing Physician Notes PA Supervision Note: I did not personally see or examine the patient today, but I verified all cook points of DONNA Segundo's assessment and plan with the following excepti ons/additions: None Subjective Patient seen sitting on the edge of bed, taking morning pills. Saw ID this morning - plan to wait another day for cultures No pain in leg, no fevers or chills. Tele - SR 60s Review of Systems Review of Systems: All systems reviewed & are unremarkable except as noted in Subjective Physical Exam Physical Exam: General: NAD, sitting at the edge of the bed, VS as above Resp: normal respiratory effort, lungs clear to auscultation CV: RRR, no murmur, Abd: normal bowel sounds, non tender, soft Extremities: Moves all extremities, tubigrip on Left LE, mild erythema, 2+ edema to left foot. No warmth Neuro: A&O x3, Results & Data Results & Data Vital Signs (Past 12 Hours) Vital Signs Temp Pulse Pulse Resp BP Pulse Ox O2 Del Method 10/22/23 07:18 63 10/22/23 07:16 36.4 C L 62 16 144/73 H 93 Room Air 10/22/23 04:37 36.7 C 65 20 150/69 H 93 Room Air 10/22/23 04:19 62 10/21/23 23:39 36.5 C 62 20 162/75 H 94 Room Air Laboratory Results Cbc, chemistry, mag reviewed PG Care Time/CCT Total # of Minutes Spent Total Time Spent with Patient: Total time spent is greater than 50% in coordination of care (as documented) at patient's floor/unit and/or counseling patient: Coding Level of Care Code 91441 SUB INP/OBS CARE 2/35MIN Diagnoses Bacteremia R78.81 Rigors R68.89 Chronic diastolic CHF (congestive heart failure) I50.32 S/P coronary artery stent placement Z95.5 Stage 3 chronic kidney disease, unspecified whether stage 3a or 3b CKD N18.30 Chronic kidney disease stage 3 subtype: unspecified whether 3a or 3b Mixed hyperlipidemia E78.2 Hyperlipidemia type: mixed hyperlipidemia Hepatic cyst K76.89 (5) Chronic kidney disease, stage 3 (moderate) Chronic kidney disease stage 3 subtype: unspecified whether 3a or 3b Qualified Code(s): N18.30 - Chronic kidney disease, stage 3 unspecified (6) Hyperlipidemia Hyperlipidemia type: mixed hyperlipidemia Qualified Code(s): E78.2 - Mixed hyperlipidemia
--- NOTE | 2023-10-23 09:44 | Infectious Disease Progress Nt ---
Date of Service October 23, 2023 Assessment & Plan (1) Bacteremia: (2) Rigors: (3) Cellulitis: (4) Chronic diastolic CHF (congestive heart failure): Plan 88yo M with/o CKD III, CAD s/p PCI, CHF, hyperparathyroidism, prior h/o LLE cellulitis with Group G Strep bacteremia in 2020, HLD who presented on 10/19 with acute onset of rigors. Developed erythema of LLE morning of 10/19. No trauma or animal scratches. On admission, he was afebrile, BP stable. Initial labs with WBC 26.81. Cr 1.76, AST/ALT wnl. PCT 0.54. UA negative. RPP negative. BCx with group G strep. CXR negative. SUMAN u/s with left hepatic lobe cyst. CT of L lower leg negative for bony abnormality, no soft tissue gas, diffuse soft tissue edema and subcutaneous fluid throughout LLE, no organized fluid collection. He has been started on CTX. ID consulted 10/19 for assistance. TTE negative for vegetations. Bacteremia likely 2/2 LLE cellulitis. Repeat cx are so far no growth. He is clinically improving. Will plan for a 2 week course of abx, which can be completed with amoxicillin. Micro: 10/19 BCx: Group G beta strep in 4/4 bottles (mendez-S) 10/20 BCx: ngtd x 48h # Group G beta bacteremia # LLE cellulitis # CKD III # CHF - continue on CTX 2g IV daily while inpatient - plan for 2 weeks of abx, which can be completed with amoxicillin 1g PO 3 times daily on discharge (starting 10/20 with end though 11/02) ID will discontinue active follow up at this time. Please do not hesitate to reconsult the Infectious Diseases service as needed. Emily Hardy MD [facility], Division of Infectious Diseases IDConnect: [phone] Admission and Anticipated Discharge Date Admission Date: October 21, 2023 Subjective Subsequent visit was provided via telemedicine using two-way real-time interactive telecommunication between the patient and the telemedicine provider. For the duration of the visit, the provider was performing the assessment from a different facility than the patient. This includesuse of bluetooth stethoscope forauscultationperformed by the telepresenter that the telemedicine provider can hear if described in the physical exam. Administrative Accountant contact information: Please call ID Connect Call Center . (Phone Number For Physician Use Only) After establishing a telemedicine visit, patient was: Patient was verified with two unique identifiers, Patient/authorized rep acknowledged consent and understanding and Gave permission to continue telehealth session Time Spent with Patient: Subsequent => 55 min Patient reports feeling well. No pain in left leg. No n/v/d. Physical Exam Physical Exam: General: Awake, alert, no acute distress HEENT: NC/AT, EOMI, mmm Neck: supple Lungs: respirations non-labored Heart: nl peripheral perfusion Abdomen: soft, NT/ND Ext: improving redness, + erythema on anterior plata Results & Data Vital Signs (Past 12 Hours) Vital Signs Temp Pulse Resp BP Pulse Ox O2 Del Method 10/23/23 07:57 36.3 C L 57 L 18 170/83 H 93 Room Air 10/22/23 23:31 36.8 C 59 L 18 145/67 H 95 Room Air (3) Cellulitis Site of cellulitis: unspecified site Qualified Code(s): L03.90 - Cellulitis, unspecified
--- NOTE | 2023-10-23 11:01 | Discharge Summary ---
Discharge Summary Date of Service October 23, 2023 Notes For Next Care Provider Admitted with rigors, found to be bacteremic 2/2 cellulitis - group G strep, mendez sensitive. Seen by ID - repeat blood cultures negative at 48 hours, echo without vegitation --> discharge with amoxicillin 1g TID through 11/02. Also with VICTORINO resolved, torsemide restarted. Repeat blood cultures pending Recommend outpatient follow-up for incidental finding of enlarging liver cyst Medication Changes From Visit Amoxicillin 1g TID can continue voltaren gel if feels helpful with shoulder pain Admission HPI Per Admitting Provider 88 year old male with a past medical history of CKD 3a, HTN, CAD s/p LAD [place] STEMI s/p PCI, PAD, HFpEF, Hyperparathyroidism, HLD presenting with concern for rigors. was at bedside and provided much of the history. Was in his usual state of health up until 2330 this evening. Went to go to bed and developed rigors. No other symptoms. Denies cough, congestion, nausea/vomiting, diarrhea, dysuria. No new rashes. History of bacteremia secondary to cellulitis and had similar presentation with rigors. ED Course Significant for: Leukocytosis- WBC= 13.25, Creatine= 1.5, procal= 0.54. UA unremarkable. Resp biofire negative. CXR per my read without acute pathology. S/p 2g ceftriaxone Principal Dx & Hospital Course #1 = Principal Diagnosis (1) Bacteremia: 88yo male with PMHx significant for bacteremia from group G strep- LE cellulitis presented with rigors concerning for infection. WBC 12k on admission with elevated procalcitonin to 0.54. Lactic wnl Tachypneic w/ RR to 30s but without hypoxia. CXR w/o acute consolidative process on admission. UA w/ trace protein, 1+ ketones, no bacteria. Biofire negative 10/19: Blood cultures 10/01 positive for strep species, sensitivities pending Repeat cultures 10/20: no growth at 48 hours Infectious disease consulted Recieved ceftriaxone - transitioned to amoxicillin TID at discharge Tick studies: lyme negative, PCR tests pending Echo: EF 55 to 60%, no valvular pathology no valvular vegetation identified CT leg: Soft tissue edema consistent with cellulitis, no evidence of further bony involvement or soft tissue gas PT OT: Recommend return home when medically stable Discharge to home today (2) Rigors: suspect 2nd to above, bacteremia 2nd to cellulitis of his LLE Rigors have resolved (3) Chronic diastolic CHF (congestive heart failure): HFpEF, follows with Dr Barton Continued on his metoprolol, Continue toresemide (4) S/P coronary artery stent placement: Follows with cardiology , Dr Arcos No CP reported continue metoprolol, aspirin (5) Chronic kidney disease, stage 3 (moderate): Follows with Dr Bell Cr 1.5 on admission, last nephrology note documents baseline 1.72 renal dose meds and avoid nephrotoxins as able Cr 1.35 - toresmide resumed (6) Hyperlipidemia: Continue statin (7) Hepatic cyst: 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 Other LFTs within normal limits Patient made aware of these findings, recommend outpatient follow-up Plan dispo: Discharged to home today with Discharge Exam General: NAD, sitting at the edge of the bed, VS as above Resp: normal respiratory effort, lungs clear to auscultation CV: RRR, no murmur, Abd: normal bowel sounds, non tender, soft Extremities: Moves all extremities, tubigrip on Left LE, erythema nearly resolved, 2+ edema to left foot. No warmth Neuro: A&O x3, Updated Medication List Medication Instructions Recorded Confirmed Type aspirin 81 mg tablet,delayed 81 mg PO DAILY 10/30/18 10/20/23 History release (Steven Low Dose Aspirin) Echinacea purpurea extract 125 mg 125 mg PO UD PRN for preventrion 12/29/18 10/20/23 History tablet (echinacea) of colds atorvastatin 80 mg tablet 40 mg (1/2 x 80 mg) PO QAM #45 tabs 12/12/22 10/20/23 Rx metoprolol succinate 25 mg 25 mg PO QAM #90 tabs 12/12/22 10/20/23 Rx tablet,extended release 24 hr torsemide 10 mg tablet 10 mg PO DAILY #90 tabs 07/28/23 10/20/23 Rx ergocalciferol (vitamin D2) 1,250 1,250 mcg PO MONTHLY 10/20/23 10/20/23 History mcg (50,000 unit) capsule amoxicillin 500 mg tablet 1,000 mg (2 x 500 mg) PO TID 12 10/23/23 Rx days #72 tabs diclofenac sodium 1 % topical gel 2 g EXT QID #30 grams 10/23/23 Rx (Voltaren Arthritis Pain) Hospital Stay Data Consultations 10/20/23 04:07 ED Decision to Admit Stat 10/20/23 11:24 Consult Infectious Diseases Routine Diagnostic Imagining Performed Chest X-Ray 10/20/23 01:02 XR chest 1V not portable HISTORY: 88 years-old Male illness acute shortness of breath COMPARISON: 12/11/2020 TECHNIQUE: AP view of the chest FINDINGS: Cardiomediastinal and hilar silhouettes are unchanged. Atherosclerosis of the aorta. No pneumothorax, pleural effusion, airspace consolidation or pulmonary edema. Degenerative changes of the shoulders and spine. IMPRESSION: No acute process. ACT 112: Negative or not required by law. The above report was generated using voice recognition software. It may contain grammatical, syntax or spelling errors. Electronically signed by: Rocael Prakash M.D. 10/20/2023 7:01 AM Gallbladder Ultrasound 10/20/23 07:35 ABDOMINAL ULTRASOUND, RIGHT UPPER QUADRANT HISTORY: elevated procal/TB/ALP. COMPARISON: Abdomen and pelvis CT 10/30/2018. FINDINGS: Pancreas: Not well visualized due to overlying bowel gas. Liver: Large hepatic cyst within the left hepatic lobe measuring 12 x 9 x 9 cm. Gallbladder: No gallbladder wall thickening. No definite gallstones. CBD: 6 mm. Right kidney: No hydronephrosis. IMPRESSION: 1. No gallbladder wall thickening. No definite gallstones. 2. Left hepatic lobe cyst. ACT 112: Negative or not required by law. Electronically signed by: Augie Deal M.D. 10/20/2023 9:[address] 10/20/23 11:49 LEFT TIBIA/FIBULA CT CT DOSE: 1106.58 mGy.cm HISTORY: Left lower leg bacteremia, cellulitis, eval abscess/deeper infection TECHNIQUE: Multiaxial CT images of the left lower leg were performed and reformatted in the sagittal and coronal plane without the use of contrast. A dose lowering technique was utilized adhering to the principles of ALARA. COMPARISON: Left lower leg CT 11/26/2020. FINDINGS: The skeletal structures are osteopenic. There is no evidence of left tibial or fibular fracture. There is no bony erosion or periostitis. The knee and ankle joints are grossly maintained. Chronic deformity within the calcaneus favors an old, healed fracture. This remains unchanged Arthritic change is seen in the hindfoot. No soft tissue gas is identified throughout the left lower extremity. There is advanced atherosclerotic calcification of the regional arteries. There is diffuse subcutaneous soft tissue edema and fluid seen throughout the left lower extremity. There is no evidence of organized fluid collection on this unenhanced examination. The Achilles tendon is intact as visualized. The regional musculature is atrophic. IMPRESSION: 1. No acute bony abnormality is seen in the left tibia or fibula. 2. No soft tissue gas is identified. 3. Diffuse soft tissue edema and subcutaneous fluid is identified throughout the left lower extremity. Correlate clinically for evidence of cellulitis. 4. There is no organized fluid collection to suggest abscess on this unenhanced examination. ACT 112: Negative or not required by law. Electronically signed by: Augie Deal M.D. 10/20/2023 2:37 PM Pending Results Patient Have Any Pending Studies at Discharge: Yes (blood cultures ) Discharge Instructions Given to Patient (Per Discharging Provider) Mr. Lopez, You were hospitalized for rigors that turned out to be caused from a bloodstream infection from the cellulitis. Your cellulitis responded well to IV antibiotics. Thankfully the repeat blood cultures remain negative at 48 hours, these will take 5 days to get final results and you can check in with your PCP to make sure these remain negative. You were seen by the infectious disease doctor, and they recommended continuing oral antibiotics - Amoxicillin 1g three times a day, through 11/02. This was sent to your pharmacy. Continue with the tubigrip compression on your leg. Keep them elevated when possible continue your torsemide and monitor you salt intake. This should be less than 2g a day. You were using Voltaren (Diclofenac) gel on your shoulder - if this is helpful you can purchase this over the counter. Recommend follow up with your PCP regarding the cyst incidentally found on your liver. Follow-up appointments: Make an appointment with your primary care physician within one week of discharge. A copy of this summary will be sent to them. Every time you see your primary care physician, or any other doctor, bring your medication list, and a list of questions. CONTACT YOUR PRIMARY CARE PROVIDER if you experience any of the following: Shortness of breath or difficulty breathing Fevers or chills Feeling tired with normal activity or experiencing dizziness or fainting Difficulty following your treatment plan, or difficulty taking medications CALL 911 OR GO TO THE EMERGENCY DEPARTMENT if you experience any of the following: Severe abdominal pain or nausea/vomiting Severe chest pain, or chest pain that radiates (moves) to your jaw or arm Sudden, severe shortness of breath or difficulty breathing Thank you for allowing us to participate in your care. Total Time Total Time Spent Total Time Spent (In Minutes): Time spend day of discharge 32 minutes including direct patient care, medication reconciliation, documentation, review of labs and images, and coordination of care. Coding Level of Care Code 89180 INP/OBS DISCH >30 MIN Diagnoses Bacteremia R78.81 Rigors R68.89 Chronic diastolic CHF (congestive heart failure) I50.32 S/P coronary artery stent placement Z95.5 Stage 3 chronic kidney disease, unspecified whether stage 3a or 3b CKD N18.30 Chronic kidney disease stage 3 subtype: unspecified whether 3a or 3b Mixed hyperlipidemia E78.2 Hyperlipidemia type: mixed hyperlipidemia Hepatic cyst K76.89
[2023-10-23 12:37] LABS: Babesia microti DNA Not Detected (Not Detected)
--- NOTE | 2023-10-24 06:22 | Billing Data ---
Date of Service October 24, 2023 Coding Level of Care Code 81215 INT INP/OBS CARE
== END 2023-10-23 13:05 | disposition home or self-care (01) | DRG 603 ==
LOC: ED 00:47 → EDINP 00:47 → SUATTDRO 04:21 → 2N 05:17 → SUATTDRO 10-21 15:14